=== PATIENT | female | born 1970 | race Caucasian/White ===

== ENCOUNTER 2024-03-23 15:41 | Inpatient (IN) | payer MEDICARE, OTHER, SELFPAY ==
[2024-03-23] VITALS (46 sets, daily range): BP systolic 85–152; BP diastolic 58–106; PULSE 90–131; RESP 17–51; TEMP 36.6–39.9; O2SAT 93–100; BMI 34.7
--- NOTE | ~2024-03-23 | CT_ITS ---
CTA chest PE protocol Ordering provider: Anneliese Monte MD History: 54 years Female with . respiratory failure . Comparison: None. Technique: CT angiogram chest was performed following timed intravenous injection of contrast. Thin s lice axial images and reformatted coronal images were obtained. Three dimensional reformatted images of the chest were also obtained using a [employer] workstation. . Automated exposure control and iterati ve reconstruction technique were employed. The dose-length product was 941.49 mGy-cm. 100 mL Omnipaque 350 was given IV. Findings: PULMONARY ARTERIES: No pulmonary embolus. VISUALIZED THORACIC INLET: Normal. Endotracheal and nasogastric tubes are noted. MEDIASTINUM: Aorta/coronary arteries: The thoracic aorta is normal. Heart/other: The heart is not enlarged. Lymph nodes: Paratracheal and prevascular lymph nodes are noted. The largest measures 1.6 cm. LUNGS: Pneumonia in the left lower lobe. Pneumonia in the left upper lobe laterally. Pneumonia in the right lower lobe medially. Nodule in the right upper lobe measuring 6 mm. 6 months follow-up CT is advised. No pulmonary masses. No effusions. No pneumothorax. VISUALIZED UPPER ABDOMEN: Status post cholecystectomy. Postoperative changes in the stomach. Otherwis e, the visualized upper abdomen is normal. MUSCULOSKELETAL: Soft tissues: The superficial soft tissues are normal. Bones: Normal spine. IMPRESSION: 1. Pneumonia in multiple areas with the largest in the left lower lobe. 2. No pulmonary embolism. 3. Nodule in the right upper lobe. 6 months follow-up CT is advised. Reviewed, dictated and finalized at location A. TIES TRADER
--- NOTE | ~2024-03-23 | XR_ITS ---
Portable chest x-ray Comparison: 03/23/2024 Clinical History: Intubation Findings: Endotracheal tube and NG tube are in satisfactory positions. Moderate left pleural effusio n present with probable left mid lung atelectasis and left lower lobe atelectasis. Right lung essenti ally clear. Cardiomediastinal silhouette is stable. Bones and soft tissues are unremarkable. Impression: Moderate left pleural effusion with probable left lower lobe and partial left midlung atelectatic alex nge. Correlate for underlying pneumonia. Support tubes, as above. Reviewed, dictated and finalized at location M. ION INSTALLER Impression: Moderate left pleural effusion with probable left lower lobe and partial left m idlung atelectatic change. Correlate for underlying pneumonia. Support tubes, as above.
--- NOTE | ~2024-03-23 | XR_ITS ---
XR chest ET placement Ordering provider: Anneliese Monte MD History: 54 years Female with . ET TUBE . Comparison: None. FINDINGS: MEDIASTINUM: The cardiac silhouette is not enlarged. Endotracheal tube is seen at the maricarmen and need s to be retracted by 2 to 3 cm. Nasogastric tube is seen extending to the stomach. Congestive carmina. LUNGS: No pneumothorax. Opacification in the left mid and lower zone is seen suggestive of pneumonia versus atelectasis. Poss ibility of left pleural effusion is not excluded. OTHER: No free air under the diaphragm. IMPRESSION: Opacification in the left mid and lower zone suggestive of pneumonia. Follow-up advised. Possibility of left pleural effusion is not excluded. Reviewed, dictated and finalized at location A. TTER SETTER UP
--- NOTE | ~2024-03-23 | XR_ITS ---
EXAMINATION: XR abdomen gastric tube insert DATE: 03/23/2024 17:25 INDICATION: Nasogastric tube placement. TECHNIQUE: A supine view of the abdomen was obtained. COMPARISON: None. FINDINGS: The lower abdomen is excluded. The nasogastric tube tip is in the stomach. Surgical clips i n the right upper quadrant are likely from cholecystectomy. IMPRESSION: 1. Nasogastric tube tip in the stomach. Reviewed, dictated and finalized at location A. NT PARTNER
--- NOTE | ~2024-03-23 | XR_ITS ---
Portable chest x-ray Comparison: 03/24/2024 Clinical History: Respiratory failure Findings: Endotracheal tube and NG tube are in satisfactory positions. Small left pleural effusion p resent with probable left lower lobe atelectasis. Correlate clinically for pneumonia. Minimal central congestive changes are present. Cardiomediastinal silhouette is stable. Bones and soft tissues are unremarkable. Impression: Small left pleural effusion with probable left lower lobe/left basilar atelectasis. Correlate clinica lly for pneumonia. Minimal central congestive change. Support tubes, as above. Reviewed, dictated and finalized at location . E BUSINESS MANAGER Impression: Small left pleural effusion with probable left lower lobe/left basilar atelecta sis. Correlate clinically for pneumonia. Minimal central congestive change. Support tubes, as above.
--- NOTE | ~2024-03-23 | XR_ITS ---
XR chest 2V Ordering provider: Dandy Mayers History: 54 years Female with . PNA . Comparison: March 26, 2024 FINDINGS: MEDIASTINUM: The cardiac silhouette is slightly enlarged. Congestive carmina. Of the endotracheal tube and nasogastric tube is noted. LUNGS: No pneumothorax. Opacification in the left lower lobe is seen suggestive of atelectasis versus pneumonia with pleural effusion. Bilateral interstitial changes is noted OTHER: No free air under the diaphragm. IMPRESSION: Left lower lobe atelectasis versus pneumonia with pleural effusion. Bilateral Interstitial thickening which may indicate underlying pulmonary edema versus pneumonitis. Reviewed, dictated and finalized at location A. RAL INTERN IMPRESSION: Left lower lobe atelectasis versus pneumonia with pleural effusion. Bilateral I nterstitial thickening which may indicate underlying pulmonary edema versus pne umonitis.
[2024-03-23] MEDS: ALBUTEROL SULFATE NEB 2.5 MG/3 ML INH 10 MG INHALATION (15:48)
[2024-03-23] MEDS: IPRATROPIUM BR 0.02% INH SOLN 0.5 MG/2.5 ML VIAL 1 MG INHALATION (15:48)
--- NOTE | 2024-03-23 15:50 | ECG_ITS ---
Test Date: 2024-03-23 16:04:41 Measurements Intervals [place] Rate: 125 P: 53 NV: 133 QRS: -42 QRSD: 91 T: 21 QT: 416 QTc: 601 Interpretive Statements SINUS TACHYCARDIA MARKED LEFT AXIS DEVIATION [QRS AXIS < -30] LOW QRS VOLTAGE IN PRECORDIAL LEADS [QRS DEFLECTION < 1.0 mV IN CHEST LEADS] BASELINE ARTIFACT LIMITS INTERPRETATION No previous ECG available for comparison Electronically Signed On 03-24-2024 15:03:20 INTERVENTIONAL PAIN PHYSICIAN by Saqib Schaefer M.D.
[2024-03-23 16:01] LABS: Alveolar/Arterial O2 Gradient 175.5 mmHg; Base Excess ABG -5.8 mEq/l (+/-2.0); Fractional Inspired Oxygen 40 %; Methemoglobin ABG 0.3 %THb (0-1.5); Oxygen Content ABG 19.8 %vol (16.0-22.0); Oxyhemoglobin 95.2 % THb (90.0-100.0); PO2 ABG 78.7 mmHg (80.0-100.0); PO2 FiO2 Ratio Arterial Blood 1.97 %; Reduced Hemoglobin 3.5 %THb (0-5.0); Total Hemoglobin 14.8 g/dL (12.0-18.0); pH ABG 7.417 (7.350-7.450)
[2024-03-23 16:02] LABS: Device NON-INVASIVE VENT; Modified Allen's Test Pass; Site Drawn LEFT RADIAL
[2024-03-23 16:03] LABS: Non-Invasive Expiratory Pressure 6 CMH2O; Non-Invasive Inspiratory Pressure 12 CMH2O; Non-Invasive Vent Rate 16 /MIN
--- NOTE | 2024-03-23 16:36 | ED.SOB ---
HPI - SOB/Dyspnea General Chief Complaint: Shortness of Breath/Dyspnea Stated Complaint: sob Time Seen by Provider: 03/23/24 16:31 History of Present Illness HPI Narrative: 54-year-old female presenting with respiratory distress. Her stepson is at bedside and helps with the history. She is here visiting from [place]. States that the whole family has been having viral respiratory symptoms for the last week. Since last night she has been complaining of shortness of breath. He did hear her wheezing so he took her to urgent care who called EMS to bring her here. On my evaluation she is on BiPAP, remains tachypneic. Further history limited secondary to acuity of condition. Related Data Home Medications Medication Instructions Recorded Confirmed amitriptyline 10 mg tablet 10 mg PO DAILY 03/24/24 03/24/24 atogepant 60 mg tablet (Qulipta) 60 mg PO DAILY 03/24/24 03/24/24 buprenorphine 4 mg-naloxone 1 mg 1 film sublingual BID 03/24/24 03/24/24 sublingual film buspirone 30 mg tablet 30 mg PO BID 03/24/24 03/24/24 clindamycin phosphate 1 % lotion 1 applic topical PRN PRN leg sores 03/24/24 03/24/24 cyclobenzaprine 10 mg tablet 10 mg PO BID 03/24/24 03/24/24 desvenlafaxine succinate 100 mg 100 mg PO DAILY 03/24/24 03/24/24 tablet,extended release 24 hr diazepam 5 mg tablet (Valium) 5 mg PO BID PRN Anxiety 03/24/24 03/24/24 diclofenac sodium 1 % topical gel 1 ea topical PRN PRN bursitis 03/24/24 03/24/24 dicyclomine 20 mg tablet 20 mg PO PRN irritable bowel 03/24/24 03/24/24 furosemide 20 mg tablet 20 mg PO BID foot swelling 03/24/24 03/24/24 galcanezumab-gnlm 120 mg/mL 300 mg subcut MONTHLY 03/24/24 03/24/24 subcutaneous syringe (Emgality) golimumab 100 mg/mL subcutaneous 100 mg subcut MONTHLY 03/24/24 03/24/24 syringe (Simponi) ketamine 50 mg/mL injection 1 mg intranasal BID 03/24/24 03/24/24 solution krill oil 1,250 mg PO DAILY 03/24/24 03/24/24 meloxicam 7.5 mg tablet 7.5 mg PO BID 03/24/24 03/24/24 montelukast 10 mg tablet 10 mg PO DAILY 03/24/24 03/24/24 multivitamin g-yqfcuhhn-gsfsloq 1 tablet PO DAILY 03/24/24 03/24/24 fumarate 18 mg-vitamin K 25 mcg tablet omeprazole 40 mg PO DAILY PRN Acid Reflux 03/24/24 03/24/24 ondansetron HCl 4 mg tablet 4 mg PO Q6H PRN Nausea And Vomiting 03/24/24 03/24/24 prednisone 5 mg tablet 5 mg PO DAILY PRN rheumatoid 03/24/24 03/24/24 arthritis pregabalin 75 mg capsule 75 mg PO BID 03/24/24 03/24/24 promethazine 25 mg tablet 25 mg PO DAILY nausea 03/24/24 03/24/24 riboflavin (vitamin B2) 400 mg 400 mg PO BID 03/24/24 03/24/24 tablet rizatriptan 10 mg tablet 10 mg DAILY PRN Migraine Headache 03/24/24 03/24/24 semaglutide (weight loss) 1.7 1.7 mg subcut WEEKLY 03/24/24 03/24/24 mg/0.75 mL subcutaneous pen injector (Wegovy) sour [place] extract 1,000 mg 3,000 mg PO DAILY 03/24/24 03/24/24 capsule ([place] Extract) zolmitriptan 5 mg tablet 5 mg DAILY PRN Migraine Headache 03/24/24 03/24/24 Allergies Allergy/AdvReac Type Severity Reaction Status Date / Time No Known Allergies Allergy Verified 03/23/24 16:00 Review of Systems Review of Systems: All systems reviewed & are unremarkable except as noted in HPI and below PMFSH Past Medical History Medical History Depression Fibromyalgia Migraine Obesity Rheumatoid arthritis Social History Social History Smoking status: Never smoker Alcohol intake: never Substance use: never Substance use type: does not use Spiritual care concerns: No Exam Narrative: GENERAL: Ill-appearing, altered, responsive to verbal stimuli though not appropriate HEAD: Normocephalic, atraumatic. EYES: PERRLA and EOMI. ENT: Grossly unremarkable NECK: Supple. CHEST: Tachypneic on BiPAP, very coarse breath sounds bilaterally HEART: Tachycardic, regular rhythm ABDOMEN: Soft, nontender, nondistended EXTREMITIES: Normal range of motion. SKIN: Warm, dry, no rash. NEURO: Altered, responsive verbal stimuli, moving all extremities spontaneously PSYCH: Unable to assess Course Vital Signs Vital signs: Vital Signs Temperature 97.9 F 03/23/24 15:44 Pulse Rate 120 H 03/23/24 15:44 Respiratory Rate 43 H 03/23/24 15:44 Blood Pressure 94/66 L 03/23/24 15:44 Pulse Oximetry 98 03/23/24 15:44 Oxygen Delivery BiPAP 03/23/24 15:44 Temperature 100.1 F H 03/24/24 20:00 Pulse Rate 88 03/24/24 21:17 Respiratory Rate 22 H 03/24/24 20:00 Blood Pressure 115/81 03/24/24 20:00 Pulse Oximetry 97 03/24/24 21:17 Oxygen Delivery Mechanical Ventilation 03/24/24 21:17 Oxygen Flow Rate 20 03/24/24 04:00 Fraction of Inspired Oxygen 30 03/24/24 21:17 Procedures Central Line Placement Right Femoral: Central Line Date: 03/23/24 Central Line Time: 22:03 Patient Placed on Monitor/Pulse Ox: Yes Max. Sterile Barrier Technique: Caps, large sterile sheet and hand hygiene Central Line Prep: 2% chlorhexidine scrub and sterile drapes applied Technique: US-Guided Ultrasound Used for Placement: Yes Central Line Lumen Inserted: triple Post Procedure: sutured in place, good blood return, all ports aspirated, flushed, capped and sterile dressing applied Patient Tolerated Procedure: well and no complications Complications: none Intubation Intubation #1: Intubation Date: 03/23/24 Intubation Time: 17:16 sedative: Etomidate Mg Given: 20 paralytic: Rocuronium Mg Given: 100 Tube Size (cm): 7.5 Method of Intubation: orotracheal Number of Attempts: 1 Tube Secured Depth (cm): 21 Tube Secured Location: lips Tube Placement Confirmation: visualized tube passing through cords, equal breath sounds bilaterally, no breath sounds over epigastrium and confirmation by capnometry Patient Tolerated Procedure: well and no complications Intubation Complications: none MDM - SOB/Dyspnea MDM Narrative Medical decision making narrative: 54-year-old female presenting with respiratory distress. Patient tachypneic in the 40s to 50s despite being on BiPAP for an close to an hour. She has received several hour long breathing treatments. Decision made to intubate the for respiratory failure. Please see procedure note below for further detail. Tolerated without complication. Sepsis protocol has been ordered with 30 cc/kilos bolus and broad-spectrum antibiotics. Spoke with the ICU who agrees with admission. Spoke with the hospitalist was accepted her for admission. CTA shows multi lobar pneumonia. Pt's blood prressures downtrending following PRN versed for sedation. Central line was placed, levo started and Versed drip added. Central line placed without complication, please see procedure note below for further detail. Pressors have been ordered. Differential Diagnosis Differential diagnosis: Likely congestive heart failure, community acquired pneumonia and other (Sepsis, respiratory failure) Medical Records Attestation: I reviewed the patient's medical records. Lab Data Attestation: I reviewed the patient's lab results. 03/24/24 04:16 03/24/24 04:16 Labs: Lab Results 03/23/24 03/23/24 03/23/24 Range/Units 15:56 16:35 16:38 WBC 15.2 H (4.5-10.0) K/mm3 RBC 4.60 (4.2-5.4) M/mm3 Hgb 14.7 (12.0-15.0) g/dL Hct 43.4 (37.0-47.0) % MCV 94.3 (80-100) fl MCH 32.0 (26-34) pg MCHC 33.9 (32-36) g/dl RDW 12.3 (11.5-14.5) % Plt Count 216 (150-375) k/mm3 MPV 10.7 H (7.4-10.4) fl Immature Gran % (Auto) 0.5 (0-0.5) % Neut % (Auto) 84.9 H (45.5-73.1) % Lymph % (Auto) 11.2 L (18.3-44.2) % [place] % (Auto) 1.8 L (2.6-8.5) % Eos % (Auto) 0.7 (0-4.4) % Baso % (Auto) 0.9 (0.2-1.2) % Lymph # (Auto) 1.69 (0.9-3.2) K/mm3 [place] # (Auto) 0.3 (0.1-0.6) K/mm3 Eos # (Auto) 0.1 (0-0.3) K/mm3 Baso # (Auto) 0.1 (0.0-0.1) K/mm3 Abs Immat Gran (auto) 0.07 H (0.00-0.031) K/mm3 Absolute Neuts (auto) 12.9 H (1.3-6.7) K/mm3 Absolute Nucleated RBC 0.000 (0.0-0.012) K/mm3 Nucleated RBC % 0.0 (0.0-0.2) % Methemoglobin 0.3 (0-1.5) %THb Minute Volume Vent Mode Expiratory Pressure 6 CMH2O Tidal Volume ml PEEP cmH2O Inspiratory Pressure 12 CMH2O Peak Inspir Pressure Pressure Support Sodium 134 L (137-145) mmol/L Potassium 3.5 (3.4-5.0) mmol/L Chloride 103 (98-107) mmol/L Carbon Dioxide 21 L (22-30) mmol/L Anion Gap 10 (4-12) mmol/L BUN 24 H (7-17) mg/dL Creatinine 0.80 (0.7-1.0) mg/dL Estim Creat Clear Calc 81 ml/min Estimated GFR > 60 (59 - ) Glucose 132 H (65-110) mg/dL Lactic Acid 1.6 (0.7-2.0) mmol/L Calcium 9.1 (8.4-10.2) mg/dL Total Bilirubin 1.6 H (0.2-1.3) mg/dL AST 59 H (14-36) U/L ALT 34 (6-35) U/L Alkaline Phosphatase 74 (38-126) U/L Troponin I 0.014 (0.000-0.034) ng/mL NT-Pro-B Natriuret Pep 1330 H (19.9-100) pg/mL Total Protein 8.0 (6.3-8.2) g/dL Albumin 4.0 (3.5-5.1) g/dL Procalcitonin 7.3 ng/mL Urine Color (Yellow) Urine Appearance (Clear) Urine pH (5.0-9.0) Ur Specific [place] (1.001-1.035) Urine Protein (Negative) mg/dL Urine Glucose (UA) (Negative) mg/dL Urine Ketones (Negative) mg/dL Ur Blood (Man) (Negative) Urine Nitrate (Negative) Urine Bilirubin (Negative) Urine Urobilinogen (<2.0) mg/dL Leukocyte Esterase Rfl (Negative) BRADY/UL Urine RBC (0-2) /hpf Urine WBC (0-3) /hpf Ur Squamous Epith Cells (Few) /hpf Urine Bacteria /hpf Urine Casts Hyaline Casts (None) /lpf Influenza A (RT-PCR) (Negative) Influenza B (RT-PCR) (Negative) Ur L.pneumophila Ag SARS-CoV-2 RNA (RT-PCR) (Negative) Urine Pneumococcal Ag 03/23/24 03/23/24 03/23/24 Range/Units 16:46 17:54 17:55 WBC (4.5-10.0) K/mm3 RBC (4.2-5.4) M/mm3 Hgb (12.0-15.0) g/dL Hct (37.0-47.0) % MCV (80-100) fl MCH (26-34) pg MCHC (32-36) g/dl RDW (11.5-14.5) % Plt Count (150-375) k/mm3 MPV (7.4-10.4) fl Immature Gran % (Auto) (0-0.5) % Neut % (Auto) (45.5-73.1) % Lymph % (Auto) (18.3-44.2) % [place] % (Auto) (2.6-8.5) % Eos % (Auto) (0-4.4) % Baso % (Auto) (0.2-1.2) % Lymph # (Auto) (0.9-3.2) K/mm3 [place] # (Auto) (0.1-0.6) K/mm3 Eos # (Auto) (0-0.3) K/mm3 Baso # (Auto) (0.0-0.1) K/mm3 Abs Immat Gran (auto) (0.00-0.031) K/mm3 Absolute Neuts (auto) (1.3-6.7) K/mm3 Absolute Nucleated RBC (0.0-0.012) K/mm3 Nucleated RBC % (0.0-0.2) % Methemoglobin (0-1.5) %THb Minute Volume Vent Mode Expiratory Pressure CMH2O Tidal Volume ml PEEP cmH2O Inspiratory Pressure CMH2O Peak Inspir Pressure Pressure Support Sodium (137-145) mmol/L Potassium (3.4-5.0) mmol/L Chloride (98-107) mmol/L Carbon Dioxide (22-30) mmol/L Anion Gap (4-12) mmol/L BUN (7-17) mg/dL Creatinine (0.7-1.0) mg/dL Estim Creat Clear Calc ml/min Estimated GFR (59 - ) Glucose (65-110) mg/dL Lactic Acid (0.7-2.0) mmol/L Calcium (8.4-10.2) mg/dL Total Bilirubin (0.2-1.3) mg/dL AST (14-36) U/L ALT (6-35) U/L Alkaline Phosphatase (38-126) U/L Troponin I (0.000-0.034) ng/mL NT-Pro-B Natriuret Pep (19.9-100) pg/mL Total Protein (6.3-8.2) g/dL Albumin (3.5-5.1) g/dL Procalcitonin ng/mL Urine Color Dark yellow (Yellow) Urine Appearance Cloudy H (Clear) Urine pH 6.0 (5.0-9.0) Ur Specific [place] 1.024 (1.001-1.035) Urine Protein 3+ H (Negative) mg/dL Urine Glucose (UA) Negative (Negative) mg/dL Urine Ketones 2+ H (Negative) mg/dL Ur Blood (Man) Trace (Negative) Urine Nitrate Negative (Negative) Urine Bilirubin 1+ H (Negative) Urine Urobilinogen 1.0 (<2.0) mg/dL Leukocyte Esterase Rfl Trace H (Negative) BRADY/UL Urine RBC 3-5 H (0-2) /hpf Urine WBC 0-5 (0-3) /hpf Ur Squamous Epith Cells Occasional (Few) /hpf Urine Bacteria None seen /hpf Urine Casts 11-20 Hyaline Casts Present (None) /lpf Influenza A (RT-PCR) Negative (Negative) Influenza B (RT-PCR) Negative (Negative) Ur L.pneumophila Ag Pending SARS-CoV-2 RNA (RT-PCR) Negative (Negative) Urine Pneumococcal Ag Pending 03/23/24 03/23/24 Range/Units 17:58 19:55 WBC (4.5-10.0) K/mm3 RBC (4.2-5.4) M/mm3 Hgb (12.0-15.0) g/dL Hct (37.0-47.0) % MCV (80-100) fl MCH (26-34) pg MCHC (32-36) g/dl RDW (11.5-14.5) % Plt Count (150-375) k/mm3 MPV (7.4-10.4) fl Immature Gran % (Auto) (0-0.5) % Neut % (Auto) (45.5-73.1) % Lymph % (Auto) (18.3-44.2) % [place] % (Auto) (2.6-8.5) % Eos % (Auto) (0-4.4) % Baso % (Auto) (0.2-1.2) % Lymph # (Auto) (0.9-3.2) K/mm3 [place] # (Auto) (0.1-0.6) K/mm3 Eos # (Auto) (0-0.3) K/mm3 Baso # (Auto) (0.0-0.1) K/mm3 Abs Immat Gran (auto) (0.00-0.031) K/mm3 Absolute Neuts (auto) (1.3-6.7) K/mm3 Absolute Nucleated RBC (0.0-0.012) K/mm3 Nucleated RBC % (0.0-0.2) % Methemoglobin (0-1.5) %THb Minute Volume Not Reportable Vent Mode Cmv Expiratory Pressure CMH2O Tidal Volume 350 ml PEEP 5 cmH2O Inspiratory Pressure CMH2O Peak Inspir Pressure Not Reportable Pressure Support Not Reportable Sodium (137-145) mmol/L Potassium (3.4-5.0) mmol/L Chloride (98-107) mmol/L Carbon Dioxide (22-30) mmol/L Anion Gap (4-12) mmol/L BUN (7-17) mg/dL Creatinine (0.7-1.0) mg/dL Estim Creat Clear Calc ml/min Estimated GFR (59 - ) Glucose (65-110) mg/dL Lactic Acid (0.7-2.0) mmol/L Calcium (8.4-10.2) mg/dL Total Bilirubin (0.2-1.3) mg/dL AST (14-36) U/L ALT (6-35) U/L Alkaline Phosphatase (38-126) U/L Troponin I 0.015 (0.000-0.034) ng/mL NT-Pro-B Natriuret Pep (19.9-100) pg/mL Total Protein (6.3-8.2) g/dL Albumin (3.5-5.1) g/dL Procalcitonin ng/mL Urine Color (Yellow) Urine Appearance (Clear) Urine pH (5.0-9.0) Ur Specific [place] (1.001-1.035) Urine Protein (Negative) mg/dL Urine Glucose (UA) (Negative) mg/dL Urine Ketones (Negative) mg/dL Ur Blood (Man) (Negative) Urine Nitrate (Negative) Urine Bilirubin (Negative) Urine Urobilinogen (<2.0) mg/dL Leukocyte Esterase Rfl (Negative) BRADY/UL Urine RBC (0-2) /hpf Urine WBC (0-3) /hpf Ur Squamous Epith Cells (Few) /hpf Urine Bacteria /hpf Urine Casts Hyaline Casts (None) /lpf Influenza A (RT-PCR) (Negative) Influenza B (RT-PCR) (Negative) Ur L.pneumophila Ag SARS-CoV-2 RNA (RT-PCR) (Negative) Urine Pneumococcal Ag ABG Data ABG results: 03/23/24 03/23/24 15:56 17:58 Puncture Site Left radial Left brachial ABG pH 7.417 7.255 L* ABG pCO2 27.0 L 40.0 ABG pO2 78.7 L 84.6 ABG PO2/FiO2 Ratio 1.97 1.41 ABG HCO3 17.0 L 17.3 L ABG O2 Saturation 96.0 94.9 L ABG O2 Content 19.8 18.0 ABG Base Excess -5.8 -9.2 A-a Gradient 175.5 299.2 Oxyhemoglobin 95.2 94.6 Carboxyhemoglobin 1.0 Reduced Hemoglobin 3.5 Total Hemoglobin 14.8 13.5 O2 Delivery Device Non-invasive vent Ventilator O2 Liters/Min Not Reportable Not Reportable Vent Rate 16 20 FiO2 40 60 Imaging Data Radiologist's impression: ITS Impressions Abdomen X-Ray 03/23/24 17:28 IMPRESSION: 1. Nasogastric tube tip in the stomach. Chest X-Ray 03/23/24 17:32 IMPRESSION: Opacification in the left mid and lower zone suggestive of pneumonia. Follow-up advised. Possibility of left pleural effusion is not excluded. Chest CTA 03/23/24 19:45 IMPRESSION: 1. Pneumonia in multiple areas with the largest in the left lower lobe. 2. No pulmonary embolism. 3. Nodule in the right upper lobe. 6 months follow-up CT is advised. Critical Care Time Critical Care Time Critical Care Time: Yes Total Critical Care Time: 120 Discharge Plan Discharge Clinical Impression: Septic shock, Pneumonia, Respiratory failure requiring intubation Patient Disposition: Still a Patient Condition: Critical
[2024-03-23] MEDS: LORazepam INJ (*CRX) 2 MG/ML VIAL (16:40)
[2024-03-23] MEDS: LORazepam INJ (*CRX) 2 MG/ML VIAL 1 MG IV PUSH (16:41)
[2024-03-23] MEDS: IPRATROPIUM BR 0.02% INH SOLN 0.5 MG/2.5 ML VIAL INHALATION (16:45)
[2024-03-23] MEDS: LEVALBUTEROL NEB 1.25 MG/3 ML 10 MG INHALATION (16:45)
[2024-03-23 16:47] LABS: Basophils Absolute Auto 0.1 K/mm3 (0.0-0.1); Basophils Percent Auto 0.9 % (0.2-1.2); Eosinophils Absolute Auto 0.1 K/mm3 (0-0.3); Eosinophils Percent Auto 0.7 % (0-4.4); Hematocrit 43.4 % (37.0-47.0); Hemoglobin 14.7 g/dL (12.0-15.0); Immature Granulocyte Absolute 0.07 K/mm3 (0.00-0.031); Immature Granulocyte Percent A 0.5 % (0-0.5); Lymphocytes Absolute Auto 1.69 K/mm3 (0.9-3.2); Lymphocytes Percent Auto 11.2 % (18.3-44.2); Mean Corpuscular HGB Conc 33.9 g/dl (32-36); Mean Corpuscular Volume 94.3 fl (80-100); Mean Platelet Volume 10.7 fl (7.4-10.4); Monocytes Absolute Auto 0.3 K/mm3 (0.1-0.6); Monocytes Percent Auto 1.8 % (2.6-8.5); Neutrophils Absolute Auto 12.9 K/mm3 (1.3-6.7); Neutrophils Percent Auto 84.9 % (45.5-73.1); Platelet Count Result 216 k/mm3 (150-375); Red Cell Distribution Width 12.3 % (11.5-14.5); White Blood Count 15.2 K/mm3 (4.5-10.0)
[2024-03-23 17:09] LABS: Lactic Acid Reflex 1.6 mmol/L (0.7-2.0)
[2024-03-23 17:11] LABS: Alanine Aminotransferase 34 U/L (6-35); Alkaline Phosphatase 74 U/L (38-126); Anion Gap 10 mmol/L (4-12); Aspartate Amino Transferase 59 U/L (14-36); Bilirubin,Total 1.6 mg/dL (0.2-1.3); Blood Urea Nitrogen 24 mg/dL (7-17); Calcium 9.1 mg/dL (8.4-10.2); Carbon Dioxide 21 mmol/L (22-30); Chloride 103 mmol/L (98-107); Estimated CRCL calculation 81 ml/min; Estimated Glomerular Filt Rate > 60; Glucose 132 mg/dL (65-110); Potassium 3.5 mmol/L (3.4-5.0); Sodium 134 mmol/L (137-145)
--- NOTE | 2024-03-23 17:13 | PC.NURSE ---
1709: Etomidate 20mg & Rocuronium 100mg IVP administered for intubation, Dr. Monte intubated with 7.5 ET tube taped 22 at lip. Large amount of bloody drainage suctioned. Breath sounds auscultated in x4 breath sounds & epigastric. C02 detector positive. OG inserted with positive confirnment auscultated & per XRay
[2024-03-23 17:21] LABS: NT Pro B Type Natriuretic Pept 1330 pg/mL (19.9-100); Troponin I 0.014 ng/mL (0.000-0.034)
[2024-03-23] MEDS: FENTANYL 2,500MCG/NS250ML(*CRX 2,500 MCG/250 ML BAG 25 MCG (17:26)
[2024-03-23] MEDS: SODIUM CHLORIDE 0.9% IV 1,000 ML 999 ML IV CONT ×4 (17:30→23:41)
[2024-03-23] MEDS: PIPERACILLIN/TAZ 4.5G/NS 100ML 4.5 GM/100 ML BAG IVPB (17:40)
[2024-03-23] MEDS: methylPREDNISolone SOD SUCC 125 MG VIAL IV PUSH (17:47)
[2024-03-23 18:08] LABS: Alveolar/Arterial O2 Gradient 299.2 mmHg; Base Excess ABG -9.2 mEq/l (+/-2.0); Fractional Inspired Oxygen 60 %; HCO3 ABG 17.3 mEq/l (22.0-26.0); Oxygen Saturation ABG 94.9 % (95.0-100.0); Oxyhemoglobin 94.6 % THb (90.0-100.0); PO2 ABG 84.6 mmHg (80.0-100.0); PO2 FiO2 Ratio Arterial Blood 1.41 %; Total Hemoglobin 13.5 g/dL (12.0-18.0)
[2024-03-23 18:12] LABS: Arterial Blood Gas PEEP 5 cmH2O; Arterial Blood Gas Vent Mode CMV; Arterial Blood Gas Ventilator rate 20 /MIN; Device VENTILATOR; Modified Allen's Test Pass; Site Drawn LEFT BRACHIAL; pH ABG 7.255 (7.350-7.450)
[2024-03-23 18:13] LABS: Arterial Blood Gas Tidal Volume 350 ml
[2024-03-23] MEDS: VANCOMYCIN 1,250 MG/NS 250 ML 1,250 MG/250 ML BAG 166.67 MG IVPB (18:15)
[2024-03-23] MEDS: ACETAMINOPHEN 650 MG SUPPOSITORY (18:22)
--- NOTE | 2024-03-23 18:25 | PC.NURSE ---
Pt vent settings unchanged. Tolerating Fentanyl drip. Mcbride patent. Bilateral upper extremities remain in soft restraints. Breath sounds remain coarse
[2024-03-23 18:42] LABS: Add Urine Microscopic? YES; Appearance Urine Cloudy (Clear); Bacteria Urine None Seen /hpf; Bilirubin Urine 1+ (Negative); Blood Urine Trace (Negative); Color Urine Dark Yellow (Yellow); Glucose Urine UA Negative (Negative); Hyaline Casts Urine Present /lpf; Ketones Urine 2+ mg/dL (Negative); Leukocyte Esterase Ur Trace LEU/UL (Negative); Nitrate Urine Negative (Negative); Protein Urine 3+ mg/dL (Negative); Specific Grav Ur 1.024 (1.001-1.035); Squamous Epithelial Cell Urine Occasional /hpf (Few); WBC Urine 0-5 /hpf (0-3)
[2024-03-23] MEDS: MIDAZOLAM HCL (*CRX) 2 MG/2 ML VIAL IV PUSH ×2 (18:42→19:47)
[2024-03-23] MEDS: FENTANYL 2,500MCG/NS250ML(*CRX 2,500 MCG/250 ML BAG IV CONT (19:28)
--- NOTE | 2024-03-23 19:28 | PC.NURSE ---
[address] with Resp therapist & RN.
--- NOTE | 2024-03-23 19:29 | PC.NURSE ---
Pt assessment unchanged. Remains bilateral upper extremities soft restraints. Vent settings unchanged as per Resp Therapy. Mcbride draining cloudy jami urine. Family updated
[2024-03-23] MEDS: SODIUM CHLORIDE 0.9% IV 900 ML 999 ML IV CONT (19:44)
--- NOTE | 2024-03-23 19:58 | PC.NURSE ---
pt breathing faster than ventilated, RT concerned for low seddation. Fentanyl up to 100mcg at this time and 2mg versed given per JUN. MD Monte aware.
--- NOTE | 2024-03-23 19:59 | ECG_ITS ---
Test Date: 2024-03-23 20:04:22 Measurements Intervals [place] Rate: 108 P: 44 MO: 141 QRS: -18 QRSD: 100 T: 12 QT: 297 QTc: 399 Interpretive Statements SINUS TACHYCARDIA LOW QRS VOLTAGE [QRS DEFLECTION < 0.5/1.0 mV IN LIMB/CHEST LEADS] INCOMPLETE RIGHT BUNDLE BRANCH BLOCK [90+ ms QRS DURATION, TERMINAL R IN V1/V2, 40+ ms S IN I/aVL/V4/V5/V6] MODERATE ST DEPRESSION [0.05+ mV ST DEPRESSION] Compared to ECG 03/23/2024 16:04:41 NO SIGNIFICANT CHANGES Electronically Signed On 03-24-2024 15:08:15 VENEER SAMPLE [employer]KER by Saqib Schaefer M.D.
[2024-03-23] MEDS: VANCOMYCIN 1,000 MG/NS 250 ML 1,000 MG/250 ML BAG 250 MG IVPB (20:08)
[2024-03-23] MEDS: KETAMINE HCL (*CRX) 500 MG/10 ML VIAL 100 MG IV PUSH (20:31)
[2024-03-23] MEDS: KETOROLAC 15 MG/ML VIAL (*BKC) IV PUSH (20:55)
--- NOTE | 2024-03-23 20:58 | PC.NURSE ---
MD Monte aware that patient hypotensive 84/58 MAP 67 with multiple pressures like this. states ketamine drip is on the way from pharmacy for better sedation and better BP control.
[2024-03-23 21:11] LABS: Troponin I 0.015 ng/mL (0.000-0.034)
[2024-03-23 21:18] LABS: Procalcitonin 7.3 ng/mL
--- NOTE | 2024-03-23 21:25 | PC.NURSE ---
prepping for central line access at this time due to continued hypotension. MD Monte at bedside.
--- NOTE | 2024-03-23 21:50 | P.HP_ITS ---
H&P: HPI History of Present Illness Date/Time: 03/23/24 21:50 Chief Complaint: 1. Shortness of breath Narrative: Gini Gleason is a 54 yo F with a mHx significant for obesity, migraines, depression, fibromyalgia, RA Visiting from [place], she while residing with her step-son developed a productive cough over the last week; it came to be associated with fatigue, shortness of breath on exertion, malaise, increased somnolence and poor execution of her ADLs. When her stept-son returned from work this AM, he noticed that she was lethargic, poorly communicative and deeply somnolent. The decision was made to pursue an evaluation at an urgent care center and after preliminary evaluations was advised to pursue more evaluations at the [facility]. on arrival she was significantly hypoxic and rapidly intubated to help with proper oxygenation. 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 Work-up findings: WBC 11 Hb 12 PLT 181 AB.29, 32,88, 15 Na 140 K 3.3 Cl 116 [id number] BUN 19 Cr 0.6 AST 47 ALT 29 ALP 62 CXR: Moderate left pleural effusion with probable left lower lobe and partial left midlung atelectatic change. Correlate for underlying pneumonia CT chest: 1. Pneumonia in multiple areas with the largest in the left lower lobe. 2. No pulmonary embolism. 3. Nodule in the right upper lobe. 6 months follow-up CT is advised. She will be admitted, evaluated and managed for CAP with background immunosuppressants, hypoxia Review of Systems Review of Systems: ROS unobtainable: Yes unobtainable due to endotracheal tube and unobtainable due to medical condition [facility] Social History Social History Smoking status: Never smoker Alcohol intake: never Substance use: never Substance use type: does not use Spiritual care concerns: No Meds Home Medications and Allergies Home Medications Medication Instructions Recorded Confirmed Type amitriptyline 10 mg tablet 10 mg PO DAILY 03/24/24 03/24/24 History atogepant 60 mg tablet (Qulipta) 60 mg PO DAILY 03/24/24 03/24/24 History buprenorphine 4 mg-naloxone 1 mg 1 film sublingual BID 03/24/24 03/24/24 History sublingual film buspirone 30 mg tablet 30 mg PO BID 03/24/24 03/24/24 History clindamycin phosphate 1 % lotion 1 applic topical PRN PRN leg sores 03/24/24 03/24/24 History cyclobenzaprine 10 mg tablet 10 mg PO BID 03/24/24 03/24/24 History desvenlafaxine succinate 100 mg 100 mg PO DAILY 03/24/24 03/24/24 History tablet,extended release 24 hr diazepam 5 mg tablet (Valium) 5 mg PO BID PRN Anxiety 03/24/24 03/24/24 History diclofenac sodium 1 % topical gel 1 ea topical PRN PRN bursitis 03/24/24 03/24/24 History dicyclomine 20 mg tablet 20 mg PO PRN irritable bowel 03/24/24 03/24/24 History furosemide 20 mg tablet 20 mg PO BID foot swelling 03/24/24 03/24/24 History galcanezumab-gnlm 120 mg/mL 300 mg subcut MONTHLY 03/24/24 03/24/24 History subcutaneous syringe (Emgality) golimumab 100 mg/mL subcutaneous 100 mg subcut MONTHLY 03/24/24 03/24/24 History syringe (Simponi) ketamine 50 mg/mL injection 1 mg intranasal BID 03/24/24 03/24/24 History solution krill oil 1,250 mg PO DAILY 03/24/24 03/24/24 History meloxicam 7.5 mg tablet 7.5 mg PO BID 03/24/24 03/24/24 History montelukast 10 mg tablet 10 mg PO DAILY 03/24/24 03/24/24 History multivitamin q-[id number] 1 tablet PO DAILY 03/24/24 03/24/24 History fumarate 18 mg-vitamin K 25 mcg tablet omeprazole 40 mg PO DAILY PRN Acid Reflux 03/24/24 03/24/24 History ondansetron HCl 4 mg tablet 4 mg PO Q6H PRN Nausea And Vomiting 03/24/24 03/24/24 History prednisone 5 mg tablet 5 mg PO DAILY PRN rheumatoid 03/24/24 03/24/24 History arthritis pregabalin 75 mg capsule 75 mg PO BID 03/24/24 03/24/24 History promethazine 25 mg tablet 25 mg PO DAILY nausea 03/24/24 03/24/24 History riboflavin (vitamin B2) 400 mg 400 mg PO BID 03/24/24 03/24/24 History tablet rizatriptan 10 mg tablet 10 mg DAILY PRN Migraine Headache 03/24/24 03/24/24 History semaglutide (weight loss) 1.7 1.7 mg subcut WEEKLY 03/24/24 03/24/24 History mg/0.75 mL subcutaneous pen injector (Wegovy) sour rincon extract 1,000 mg 3,000 mg PO DAILY 03/24/24 03/24/24 History capsule (Tart Rincon Extract) zolmitriptan 5 mg tablet 5 mg DAILY PRN Migraine Headache 03/24/24 03/24/24 History Allergies Allergy/AdvReac Type Severity Reaction Status Date / Time No Known Allergies Allergy Verified 03/23/24 16:00 Vital Signs Vital Signs - 24 hr 03/23/24 15:44 03/23/24 15:47 03/23/24 15:59 Temperature 97.9 F Pulse Rate 120 H 125 H Respiratory Rate 43 H 40 H 43 H Blood Pressure 94/66 L Pulse Oximetry 98 96 96 Oxygen Delivery BiPAP BiPAP BiPAP Fraction of Inspired Oxygen 03/23/24 15:48 03/23/24 16:37 03/23/24 16:45 Temperature Pulse Rate 121 H 131 H 131 H Respiratory Rate 40 H 44 H 45 H Blood Pressure Pulse Oximetry Oxygen Delivery Fraction of Inspired Oxygen 03/23/24 17:19 03/23/24 16:38 03/23/24 16:49 Temperature Pulse Rate 131 H 123 H Respiratory Rate 22 H Blood Pressure 141/83 H Pulse Oximetry 100 100 Oxygen Delivery BiPAP Fraction of Inspired Oxygen 03/23/24 17:26 03/23/24 17:26 03/23/24 16:46 Temperature 98.2 F Pulse Rate 120 H 123 H 131 H Respiratory Rate 17 47 H Blood Pressure 126/85 Pulse Oximetry 98 96 Oxygen Delivery Mechanical Ventilation Fraction of Inspired Oxygen 60 03/23/24 17:00 03/23/24 17:15 03/23/24 17:20 Temperature Pulse Rate 129 H 130 H 125 H Respiratory Rate 51 H 23 H 19 Blood Pressure 119/77 133/106 H 141/83 H Pulse Oximetry 96 100 100 Oxygen Delivery Fraction of Inspired Oxygen 03/23/24 17:45 03/23/24 18:00 03/23/24 18:01 Temperature 103.9 F H 103.9 F H Pulse Rate 127 H 123 H 123 H Respiratory Rate 20 20 20 Blood Pressure 152/95 H 138/80 Pulse Oximetry 97 99 98 Oxygen Delivery Fraction of Inspired Oxygen 03/23/24 18:15 03/23/24 18:18 03/23/24 18:27 Temperature 103.8 F H 103.8 F H Pulse Rate 119 H 120 H 118 H Respiratory Rate 25 H 26 H Blood Pressure 141/93 H Pulse Oximetry 98 97 94 Oxygen Delivery Mechanical Ventilation Fraction of Inspired Oxygen 45 03/23/24 19:28 03/23/24 19:38 03/23/24 19:57 Temperature Pulse Rate 114 H 111 H 110 H Respiratory Rate 33 H 21 H 33 H Blood Pressure Pulse Oximetry Oxygen Delivery Fraction of Inspired Oxygen 03/23/24 19:24 03/23/24 19:25 03/23/24 20:27 Temperature 102.4 F H 102.4 F H Pulse Rate 115 H 115 H 104 H Respiratory Rate 30 H 32 H Blood Pressure 101/65 108/67 Pulse Oximetry 94 94 99 Oxygen Delivery Mechanical Ventilation Fraction of Inspired Oxygen 60 03/23/24 19:26 03/23/24 19:30 03/23/24 19:49 Temperature 102.4 F H 102.3 F H 101.9 F H Pulse Rate 115 H 114 H 112 H Respiratory Rate 29 H 33 H 32 H Blood Pressure 104/67 Pulse Oximetry 94 94 93 Oxygen Delivery Fraction of Inspired Oxygen 03/23/24 19:50 03/23/24 19:55 03/23/24 20:00 Temperature 101.9 F H 101.8 F H 101.7 F H Pulse Rate 112 H 110 H 109 H Respiratory Rate 29 H 34 H 35 H Blood Pressure 99/60 L 96/66 L 96/60 L Pulse Oximetry 93 93 95 Oxygen Delivery Fraction of Inspired Oxygen 03/23/24 20:01 03/23/24 20:05 03/23/24 20:10 Temperature 101.7 F H 101.6 F H 101.5 F H Pulse Rate 109 H 109 H 108 H Respiratory Rate 29 H 30 H 31 H Blood Pressure 102/58 L 99/65 L Pulse Oximetry 95 95 94 Oxygen Delivery Fraction of Inspired Oxygen 03/23/24 20:33 03/23/24 21:12 Temperature 101.0 F H Pulse Rate 103 H 98 Respiratory Rate 29 H 31 H Blood Pressure Pulse Oximetry 99 Oxygen Delivery Fraction of Inspired Oxygen Exam Const: General: uncomfortable HENMT: Mouth: Yes moist mucous membranes Eyes: General: appearance normal, both eyes and all related structures Sclera: sclerae normal Pupils: Equal, round and reactive pupils present EOM: EOMs intact bilaterally Neck: Neck: supple Resp: Auscultation: rhonchi lower bilaterally and diminished lung sounds Cardio: Rate: tachycardic Rhythm: regular rhythm Urinary Catheter: Urinary Catheter: patent and draining Skin: General skin exam: normal color Neuro: Other: could not assess due to intubation Extrem: General: normal to inspection Psych: Mental Status: mental status grossly normal H&P: Results Labs Labs: Short CBC 03/23/24 Range/Units 16:35 WBC 15.2 H (4.5-10.0) K/mm3 Hgb 14.7 (12.0-15.0) g/dL Hct 43.4 (37.0-47.0) % Plt Count 216 (150-375) k/mm3 BMP 03/23/24 16:35 Sodium 134 L Potassium 3.5 Chloride 103 Carbon Dioxide 21 L BUN 24 H Creatinine 0.80 Glucose 132 H Calcium 9.1 Cardiac Enzymes 03/23/24 03/23/24 Range/Units 16:35 19:55 Troponin I 0.014 0.015 (0.000-0.034) ng/mL Liver Function 03/23/24 Range/Units 16:35 Total Bilirubin 1.6 H (0.2-1.3) mg/dL AST 59 H (14-36) U/L ALT 34 (6-35) U/L Alkaline Phosphatase 74 (38-126) U/L Albumin 4.0 (3.5-5.1) g/dL Urine 03/23/24 Range/Units 17:55 Urine Color Dark yellow (Yellow) Urine Appearance Cloudy H (Clear) Urine pH 6.0 (5.0-9.0) Ur Specific [place] 1.024 (1.001-1.035) Urine Protein 3+ H (Negative) mg/dL Urine Glucose (UA) Negative (Negative) mg/dL Assessment and Plan Assessment and plan (1) Septic shock: Code(s): A41.9 - Sepsis, unspecified organism; R65.21 - Severe sepsis with septic shock Status: Acute (2) Pneumonia: Code(s): J18.9 - Pneumonia, unspecified organism Status: Acute (3) Respiratory failure requiring intubation: Code(s): J96.90 - Respiratory failure, unspecified, unspecified whether with hypoxia or hypercapnia Status: Acute (4) Community acquired pneumonia: Code(s): J18.9 - Pneumonia, unspecified organism Status: Acute Plan Acute and principal conditions 1. Acute hypoxic respiratory failure 2. Hypokalemia. 3. NAGMA. 4. Sepsis w/shock 5. RUL nodule, 6mm Replete and monitor K Intubated and sedated Zosyn; IVFs f/u CT in outpatient Chronic and stable conditions 1. Migraines 2. RA. on Prednisone. monitor for need of stress dose steroids 3. Fibromyalgia. 4. GERD. 5. Recurrent depresison w/anxiety. Code status. Full VTE prophylaxis. SCDs; LYNNE Nutrition. NPO Hospitalist MIPS Advance Care Plan I have confirmed that the patient's Advanced Care Plan is present, code status is documented, or surrogate decision maker is listed in patient medical record.: Yes Medication Reconciliation I have utilized all available resources to obtain, update and review the patients current medications (includes all prescriptions, OTC, herbals, cannabis, and nutritional supplements).: Yes The patient is not eligible for med reconciliation; the patient is in a emergent medical situation where delaying treatment would jeopardize the patients health.: Yes
[2024-03-23] MEDS: NOREPINEPHRINE 8 MG/D5W 250 ML 8 MG/250 ML BAG 9.38 MG IV CONT (22:03)
[2024-03-23 22:25] LABS: Influenza A QL RT-PCR Negative (Negative); Influenza B QL RT-PCR Negative (Negative); SARS-CoV-2 RNA PCR Negative (Negative)
--- NOTE | 2024-03-23 22:30 | PC.NURSE ---
This patient, Gini Gleason, was admitted to Intensive Care Unit-11. Patient/family oriented to hospital policies and general routines including ID bracelet, bed and alarms, visiting hours, pain management, procedures, bathroom and other care routines, personal items, smoking policy, room service/diet, and visiting hours. Information on how to activate the Rapid Response Team has been discussed. Patient/Family are encouraged to report perceived risks to care and to ask questions if they do not understand what they are told or what they should do.
--- NOTE | 2024-03-23 22:38 | PC.NURSE ---
Moy updated via phone on mother being moved to ICU 11. All questions answered.
[2024-03-23] MEDS: MIDAZOLAM 100MG/NS 100ML(*CRX) 100 MG/100 ML BAG IV CONT (22:41)
[2024-03-23] MEDS: FENTANYL 2,500MCG/NS250ML(*CRX 2,500 MCG/250 ML BAG 20 MCG IV CONT (22:45)
[2024-03-23 23:19] LABS: Lactic Acid Reflex 2.3 mmol/L (0.7-2.0)
[2024-03-23] MEDS: MIDAZOLAM HCL (*CRX) 2 MG/2 ML VIAL 4 MG IV PUSH (23:23)
[2024-03-23 23:33] LABS: Troponin I 0.017 ng/mL (0.000-0.034)
[2024-03-23] MEDS: HEPARIN SODIUM 5,000 UNITS/ML VIAL 5000 UNITS SUB-Q (23:42)
[2024-03-23] MEDS: SODIUM CHLORIDE 0.9% IV 1,000 ML 100 ML IV CONT (23:42)
[2024-03-24] VITALS (34 sets, daily range): BP systolic 91–121; BP diastolic 64–92; PULSE 82–97; RESP 20–28; TEMP 37.1–39.9; O2SAT 94–100; BMI 35.2
--- NOTE | 2024-03-24 | ECHO_ITS ---
Patient Info Name: Gini Gleason Age: 54 years : 1970 Gender: Female Ht: 65 in Wt: 218 lbs BSA: 2.17 m2 HR: 85 bpm BP: 100 / 77 mmHg Technical Quality: Poor Exam Date: 03/24/2024 12:13 PM Exam Location: Echo Lab Patient Status: Inpatient Admit Date: 03/23/2024 Staff Ordering Physician: Walter Law MD Drop Forger: Joselyn Sharma RDCS Attending Provider: Eliseo Sierra MD Exam Type: CA echo doppler color flow Study Info Indications - CHF Complete two-dimensional, color flow and Doppler transthoracic echocardiogram is performed with contrast to opacify the left ventricle and to improve the deliniation of the left ventricle endocardial borders. Contrast/Agitated Saline Contrast/Ag. Saline: Definity Amount: 2.00 ml Existing IV Access: Yes Reason for Poor Study: poor echocardiographic windows Summary 1. Technically difficult study with limited views. 2. Left ventricular chamber dimension is normal. 3. Left ventricular systolic function is normal, estimated at 50-55%. 4. The left ventricular diastolic function is grade I diastolic dysfunction. 5. Right ventricular systolic function is normal. 6. There is mild tricuspid valve regurgitation. Left Ventricle Left ventricular chamber dimension is normal. Left ventricular systolic function is normal, estimated at 50-55%. There is no increased left ventricular wall thickness. The left ventricular diastolic function is grade I diastolic dysfunction. Right Ventricle Right ventricular chamber dimension is normal. Right ventricular systolic function is normal. Left Atria Left atrial chamber dimension is normal. Right Atria Right atrial chamber dimension is normal. Atrial Septum Intact interatrial septum visualized by color flow imaging. Aortic Valve The aortic valve is not well visualized. There is no aortic valve stenosis. There is no aortic valve regurgitation. Pulmonic Valve The pulmonic valve is not well visualized. There is no pulmonic regurgitation. Mitral Valve There is trace mitral valve regurgitation. Tricuspid Valve There is mild tricuspid valve regurgitation. Pericardium/Pleural There is no pericardial effusion. Inferior Vena Cava Normal inferior vena cava with <50% collapse upon inspiration consistent with elevated right atrial pressure, 8 mmHg. Aorta The aortic root size at the sinus of Valsalva is normal. Left Ventricular Outflow Tract Name Value Normal LVOT 2D LVOT Diameter 1.8 cm LVOT Doppler LVOT Peak Gradient 6 mmHg LVOT Mean Gradient 4 mmHg LVOT VTI 24 cm LVOT VTI/AV VTI Ratio 0.9 LVOT Stroke Volume 60 ml LVOT CO 5.2 l/min LVOT CI 2.4 l/min/m2 Pulmonic Valve Name Value Normal RVOT Doppler RVOT Peak Gradient 3 mmHg PV Doppler PV Peak Gradient 4 mmHg Mitral Valve Name Value Normal MV Doppler MV Decel Bossier 384 cm/s2 MV PHT 50 ms MV Area (PHT) 4.4 cm2 4.0-5.0 MV Diastolic Function MV E Peak Velocity 66 cm/s MV A Peak Velocity 81 cm/s MV E/A 0.8 MV Decel Time 173 ms MV Annular TDI MV E/e' (Septal) 4.5 <=8.0 MV E/e' (Lateral) 4.2 <=8.0 MV E/e' (Average) 4.3 Tricuspid Valve Name Value Normal Estimated PAP/RSVP RA Pressure 8 mmHg <=5 Aorta Name Value Normal Ascending Aorta Ao Root Diameter (MM) 3.1 cm Ao Root Diam Index (MM) 1.4 cm/m2 Aortic Valve Name Value Normal AV Doppler AV Peak Velocity 142 cm/s AV Peak Gradient 8 mmHg AV Mean Gradient 5 mmHg AV VTI 27 cm AV Area (Cont Eq VTI) 2.3 cm2 >=3.0 AV Area (Cont Eq Miguel) 2.3 cm2 AV Regurgitation 2D LVOT Area 2.6 cm2 Ventricles Name Value Normal LV Dimensions 2D/MM IVS Diastolic Thickness (2D) 0.9 cm 0.6-1.0 LVID Diastole (2D) 3.8 cm 3.8-5.2 LVIW Diastolic Thickness (2D) 0.9 cm 0.6-0.9 LVID Systole (2D) 2.8 cm 2.2-3.5 LVOT Diameter 1.8 cm LV Mass (2D Cubed) 94.54 g 67.00-162.00 LV Mass Index (2D Cubed) 44 g/m2 43-95 Relative Wall Thickness (2D) 0.45 LV Fractional Shortening/Ejection Fraction 2D/MM LV Fractional Shortening (2D) 31 % 27-45 LV EF (2D Teicholz) 58 % 54-74 LV Diastolic Volume (4C MOD) 75 ml LV EF (4C MOD) 35 % LV Diastolic Volume (2C MOD) 80 ml LV EF (2C MOD) 49 % LV Diastolic Volume (BP MOD) 79 ml 46-106 LV Diastolic Volume Index (BP MOD) 36 ml/m2 29-61 LV Systolic Volume (BP MOD) 47 ml 14-42 LV Systolic Volume Index (BP MOD) 21 ml/m2 8-24 LV EF (BP MOD) 41 % 54-74 LV Diastolic Length (4C) 7.8 cm LV Systolic Length (4C) 7.3 cm LV Stroke Volume (4C MOD) 27 ml Atria Name Value Normal LA Dimensions LA Dimension (MM) 3.9 cm 2.7-3.8 Report Signatures
[2024-03-24 02:03] LABS: Reflex Lactic Acid Yes or No Add Lactic
[2024-03-24 02:26] LABS: MRSA (PCR) NOT DETECTED (NOT DETECTE)
[2024-03-24 04:28] LABS: Basophils Absolute Auto 0.1 K/mm3 (0.0-0.1); Basophils Percent Auto 0.8 % (0.2-1.2); Eosinophils Absolute Auto 0.1 K/mm3 (0-0.3); Eosinophils Percent Auto 1.1 % (0-4.4); Hematocrit 36.4 % (37.0-47.0); Hemoglobin 12.2 g/dL (12.0-15.0); Immature Granulocyte Absolute 0.08 K/mm3 (0.00-0.031); Immature Granulocyte Percent A 0.7 % (0-0.5); Lymphocytes Absolute Auto 0.34 K/mm3 (0.9-3.2); Lymphocytes Percent Auto 3.1 % (18.3-44.2); Mean Corpuscular HGB Conc 33.5 g/dl (32-36); Mean Corpuscular Hemoglobin 32.3 pg (26-34); Mean Corpuscular Volume 96.3 fl (80-100); Mean Platelet Volume 10.4 fl (7.4-10.4); Monocytes Absolute Auto 0.2 K/mm3 (0.1-0.6); Monocytes Percent Auto 1.5 % (2.6-8.5); Neutrophils Absolute Auto 10.2 K/mm3 (1.3-6.7); Neutrophils Percent Auto 92.8 % (45.5-73.1); Platelet Count Result 181 k/mm3 (150-375); Red Blood Count 3.78 M/mm3 (4.2-5.4); Red Cell Distribution Width 12.6 % (11.5-14.5)
[2024-03-24 04:44] LABS: Lactic Acid 1.3 mmol/L (0.7-2.0)
[2024-03-24 04:45] LABS: Alanine Aminotransferase 29 U/L (6-35); Albumin Level 2.9 g/dL (3.5-5.1); Alkaline Phosphatase 62 U/L (38-126); Anion Gap 8 mmol/L (4-12); Aspartate Amino Transferase 47 U/L (14-36); Blood Urea Nitrogen 19 mg/dL (7-17); Calcium 7.4 mg/dL (8.4-10.2); Carbon Dioxide 16 mmol/L (22-30); Chloride 116 mmol/L (98-107); Estimated CRCL calculation 110 ml/min; Estimated Glomerular Filt Rate > 60; Glucose 243 mg/dL (65-110); Potassium 3.3 mmol/L (3.4-5.0); Sodium 140 mmol/L (137-145)
[2024-03-24 05:04] LABS: Anisocytosis 1+; Burr Cells 1+; Large Platelets Present; Platelet Estimate Adequate (Adequate); Schistocytes None Seen
[2024-03-24 05:48] LABS: Alveolar/Arterial O2 Gradient 93.7 mmHg; Base Excess ABG -10.2 mEq/l (+/-2.0); Carboxyhemoglobin 0.5 % THb (0-2.0); Fractional Inspired Oxygen 30 %; HCO3 ABG 15.2 mEq/l (22.0-26.0); Methemoglobin ABG 0.3 %THb (0-1.5); Oxygen Content ABG 16.9 %vol (16.0-22.0); Oxygen Saturation ABG 95.2 % (95.0-100.0); Oxyhemoglobin 95.7 % THb (90.0-100.0); PCO2 ABG 32.1 mmHg (35.0-45.0); PO2 ABG 82.5 mmHg (80.0-100.0); PO2 FiO2 Ratio Arterial Blood 2.75 %; Reduced Hemoglobin 3.5 %THb (0-5.0); Total Hemoglobin 12.5 g/dL (12.0-18.0); pH ABG 7.292 (7.350-7.450)
[2024-03-24 05:49] LABS: Arterial Blood Gas PEEP 10 cmH2O; Arterial Blood Gas Tidal Volume 350 ml; Arterial Blood Gas Vent Mode CMV; Arterial Blood Gas Ventilator rate 20 /MIN; Device VENTILATOR; Modified Allen's Test Unable to perform; Site Drawn RIGHT RADIAL
[2024-03-24] MEDS: VANCOMYCIN 1,500 MG/NS 500 ML 1,500 MG/500 ML BAG 250 MG IVPB ×2 (06:08→17:45)
[2024-03-24] MEDS: SODIUM BICARBONATE 8.4% 50 MEQ/50 ML SYRINGE IV PUSH (07:10)
[2024-03-24 08:38] LABS: Glucose Point of Care 199 mg/dl (65-105)
[2024-03-24] MEDS: POTASSIUM CHLORIDE INJ 40 MEQ in SODIUM CHLORIDE 0.9% IV 500 ML 130 MEQ IVPB (08:40)
[2024-03-24] MEDS: DOXYCYCLINE 100 MG/NS 100 ML 100 MG/100 ML BAG IVPB ×2 (08:40→20:44)
[2024-03-24] MEDS: SODIUM BICARBONATE TAB 650 MG TABLET FEED TUBE ×2 (08:40→17:42)
[2024-03-24] MEDS: PIPERACILLN/TAZ 3.375GM/NS50ML 3.375 GM/50 ML BAG IVPB ×4 (08:40→23:52)
[2024-03-24] MEDS: MINERAL OIL/WHITE PETROLATUM OINTMENT 1 APPLIC EACH EYE ×2 (08:41→20:47)
[2024-03-24] MEDS: PANTOPRAZOLE SODIUM IV 40 MG VIAL IV PUSH (08:41)
[2024-03-24] MEDS: FENTANYL 2,500MCG/NS250ML(*CRX 2,500 MCG/250 ML BAG 20 MCG IV CONT ×2 (08:47→22:13)
--- NOTE | 2024-03-24 09:19 | P.CONIN_ITS ---
Assessment and Plan Assessment and plan (1) Acute respiratory failure: Code(s): J96.00 - Acute respiratory failure, unspecified whether with hypoxia or hypercapnia Status: Acute Assessment and Plan: Acute respiratory failure likely secondary to community-acquired pneumonia with possible component of congestive heart failure Chest CTA IMPRESSION: 1. Pneumonia in multiple areas with the largest in the leftlower lobe. 2. No pulmonary embolism. 3. Nodule in the right upper lobe. 6 months follow-up CT is advised. Patient now intubated and sedated Ventilator settings reviewed. I will decrease PEEP to 8 Blood cultures have been sent With check sputum culture urine Legionella urine pneumococcal antigen Currently is patient on vanco and Zosyn. I will add doxycycline Hold further IV fluids Bronchodilators (2) Septic shock: Code(s): A41.9 - Sepsis, unspecified organism; R65.21 - Severe sepsis with septic shock Status: Acute Assessment and Plan: Post intubation patient became hypotensive and was started on Levophed Levophed has been weaned off this morning Treatment of pneumonia as above Will hold further IV fluids as patient is seated close to 5 L of IV fluids. Patient is chronically on low-dose prednisone which is marked as p.r.n. on her medication list. I do not know how frequently she takes it. Will empirically start low-dose steroids daily to avoid any insufficiency (3) Community acquired pneumonia: Code(s): J18.9 - Pneumonia, unspecified organism Status: Acute Assessment and Plan: See above (4) Congestive heart failure: Code(s): I50.9 - Heart failure, unspecified Status: Acute Assessment and Plan: Patient has elevated BNP Hold further fluids Check echocardiogram Plan DVT prophylaxis -SC heparin Stress ulcer prophylaxis -Protonix Nutrition -start Tube Feeds Code Status - Full Code Total Critical Care Time - 35minutes Due to a high probability of clinically significant, life threatening deterioration, the patient required my highest level of preparedness to intervene emergently and I personally spent this critical care time directly and personally managing the patient. This critical care time included obtaining a history; examining the patient; pulse oximetry; ordering and review of studies; arranging urgent treatment with development of a management plan; evaluation of patient's response to treatment; frequent reassessment; and discussions with other providers. It was exclusive of separately billable procedures and treating other patients and teaching time. Please see Assessment and Plan section and the rest of the note for further information on patient assessment and treatment [employer] Consult Note Consult date: 03/24/24 Reason for consult: Acute respiratory failure HPI: Gini Gleason is a 54 year old female with history of migraines and arthritis who is visiting from [place] was brought to ER yesterday with respiratory distress. History was provided by her stepson in the ER as per reports that there was respiratory symptom and infection was going around the family and patient also developed cough and shortness of breath with wheezing. In the ER patient was tachypneic and initially tried on BiPAP but failed and was intubated. Post intubation patient became hypotensive and a central venous catheter was placed patient was started on Levophed. Patient was admitted to ICU for further evaluation management. This morning on my evaluation she is sedated intubated and on mechanical ventilation. Levophed has been weaned off. She is on fentanyl Versed and IV fluids. History is unobtainable and was obtained from chart review and physician sign-out from ER prior to admission Review of Systems Review of Systems: ROS unobtainable: Yes unobtainable due to endotracheal tu be, unobtainable due to medical condition and unobtainable due to mental status PMFSH Past Medical History Medical History Depression Fibromyalgia Migraine Obesity Rheumatoid arthritis Social History Social History Smoking status: Never smoker Alcohol intake: never Substance use: never Substance use type: does not use Spiritual care concerns: No Meds Home Medications and Allergies Home Medications Medication Instructions Recorded Confirmed Type amitriptyline 10 mg tablet 10 mg PO DAILY 03/24/24 03/24/24 History atogepant 60 mg tablet (Qulipta) 60 mg PO DAILY 03/24/24 03/24/24 History buprenorphine 4 mg-naloxone 1 mg 1 film sublingual BID 03/24/24 03/24/24 History sublingual film buspirone 30 mg tablet 30 mg PO BID 03/24/24 03/24/24 History clindamycin phosphate 1 % lotion 1 applic topical PRN PRN leg sores 03/24/24 03/24/24 History cyclobenzaprine 10 mg tablet 10 mg PO BID 03/24/24 03/24/24 History desvenlafaxine succinate 100 mg 100 mg PO DAILY 03/24/24 03/24/24 History tablet,extended release 24 hr diazepam 5 mg tablet (Valium) 5 mg PO BID PRN Anxiety 03/24/24 03/24/24 History diclofenac sodium 1 % topical gel 1 ea topical PRN PRN bursitis 03/24/24 03/24/24 History dicyclomine 20 mg tablet 20 mg PO PRN irritable bowel 03/24/24 03/24/24 History furosemide 20 mg tablet 20 mg PO BID foot swelling 03/24/24 03/24/24 History galcanezumab-gnlm 120 mg/mL 300 mg subcut MONTHLY 03/24/24 03/24/24 History subcutaneous syringe (Emgality) golimumab 100 mg/mL subcutaneous 100 mg subcut MONTHLY 03/24/24 03/24/24 History syringe (Simponi) ketamine 50 mg/mL injection 1 mg intranasal BID 03/24/24 03/24/24 History solution krill oil 1,250 mg PO DAILY 03/24/24 03/24/24 History meloxicam 7.5 mg tablet 7.5 mg PO BID 03/24/24 03/24/24 History montelukast 10 mg tablet 10 mg PO DAILY 03/24/24 03/24/24 History multivitamin o-aocgxnxd-tptuegs 1 tablet PO DAILY 03/24/24 03/24/24 History fumarate 18 mg-vitamin K 25 mcg tablet omeprazole 40 mg PO DAILY PRN Acid Reflux 03/24/24 03/24/24 History ondansetron HCl 4 mg tablet 4 mg PO Q6H PRN Nausea And Vomiting 03/24/24 03/24/24 History prednisone 5 mg tablet 5 mg PO DAILY PRN rheumatoid 03/24/24 03/24/24 History arthritis pregabalin 75 mg capsule 75 mg PO BID 03/24/24 03/24/24 History promethazine 25 mg tablet 25 mg PO DAILY nausea 03/24/24 03/24/24 History riboflavin (vitamin B2) 400 mg 400 mg PO BID 03/24/24 03/24/24 History tablet rizatriptan 10 mg tablet 10 mg DAILY PRN Migraine Headache 03/24/24 03/24/24 History semaglutide (weight loss) 1.7 1.7 mg subcut WEEKLY 03/24/24 03/24/24 History mg/0.75 mL subcutaneous pen injector (Boogie) sour [place] extract 1,000 mg 3,000 mg PO DAILY 03/24/24 03/24/24 History capsule ([place]art [place] Extract) zolmitriptan 5 mg tablet 5 mg DAILY PRN Migraine Headache 03/24/24 03/24/24 History Allergies Allergy/AdvReac Type Severity Reaction Status Date / Time No Known Allergies Allergy Verified 03/23/24 16:00 Vital Signs Vital Signs - 24 hr 03/23/24 15:44 03/23/24 15:47 03/23/24 15:59 Temperature 36.6 C Pulse Rate 120 H 125 H Respiratory Rate 43 H 40 H 43 H Blood Pressure 94/66 L Pulse Oximetry 98 96 96 Oxygen Delivery BiPAP BiPAP BiPAP Oxygen Flow Rate Fraction of Inspired Oxygen 03/23/24 15:48 03/23/24 16:37 03/23/24 16:45 Temperature Pulse Rate 121 H 131 H 131 H Respiratory Rate 40 H 44 H 45 H Blood Pressure Pulse Oximetry Oxygen Delivery Oxygen Flow Rate Fraction of Inspired Oxygen 03/23/24 17:19 03/23/24 16:38 03/23/24 16:49 Temperature Pulse Rate 131 H 123 H Respiratory Rate 22 H Blood Pressure 141/83 H Pulse Oximetry 100 100 Oxygen Delivery BiPAP Oxygen Flow Rate Fraction of Inspired Oxygen 03/23/24 17:26 03/23/24 17:26 03/23/24 16:46 Temperature 36.8 C Pulse Rate 120 H 123 H 131 H Respiratory Rate 17 47 H Blood Pressure 126/85 Pulse Oximetry 98 96 Oxygen Delivery Mechanical Ventilation Oxygen Flow Rate Fraction of Inspired Oxygen 60 03/23/24 17:00 03/23/24 17:15 03/23/24 17:20 Temperature Pulse Rate 129 H 130 H 125 H Respiratory Rate 51 H 23 H 19 Blood Pressure 119/77 133/106 H 141/83 H Pulse Oximetry 96 100 100 Oxygen Delivery Oxygen Flow Rate Fraction of Inspired Oxygen 03/23/24 17:45 03/23/24 18:00 03/23/24 18:01 Temperature 39.9 C H 39.9 C H Pulse Rate 127 H 123 H 123 H Respiratory Rate 20 20 20 Blood Pressure 152/95 H 138/80 Pulse Oximetry 97 99 98 Oxygen Delivery Oxygen Flow Rate Fraction of Inspired Oxygen 03/23/24 18:15 03/23/24 18:18 03/23/24 18:27 Temperature 39.9 C H 39.9 C H Pulse Rate 119 H 120 H 118 H Respiratory Rate 25 H 26 H Blood Pressure 141/93 H Pulse Oximetry 98 97 94 Oxygen Delivery Mechanical Ventilation Oxygen Flow Rate Fraction of Inspired Oxygen 45 03/23/24 19:28 03/23/24 19:38 03/23/24 19:57 Temperature Pulse Rate 114 H 111 H 110 H Respiratory Rate 33 H 21 H 33 H Blood Pressure Pulse Oximetry Oxygen Delivery Oxygen Flow Rate Fraction of Inspired Oxygen 03/23/24 19:24 03/23/24 19:25 03/23/24 20:27 Temperature 39.1 C H 39.1 C H Pulse Rate 115 H 115 H 104 H Respiratory Rate 30 H 32 H Blood Pressure 101/65 108/67 Pulse Oximetry 94 94 99 Oxygen Delivery Mechanical Ventilation Oxygen Flow Rate Fraction of Inspired Oxygen 60 03/23/24 19:26 03/23/24 19:30 03/23/24 19:49 Temperature 39.1 C H 39.1 C H 38.8 C H Pulse Rate 115 H 114 H 112 H Respiratory Rate 29 H 33 H 32 H Blood Pressure 104/67 Pulse Oximetry 94 94 93 Oxygen Delivery Oxygen Flow Rate Fraction of Inspired Oxygen 03/23/24 19:50 03/23/24 19:55 03/23/24 20:00 Temperature 38.8 C H 38.8 C H 38.7 C H Pulse Rate 112 H 110 H 109 H Respiratory Rate 29 H 34 H 35 H Blood Pressure 99/60 L 96/66 L 96/60 L Pulse Oximetry 93 93 95 Oxygen Delivery Oxygen Flow Rate Fraction of Inspired Oxygen 03/23/24 20:01 03/23/24 20:05 03/23/24 20:10 Temperature 38.7 C H 38.7 C H 38.6 C H Pulse Rate 109 H 109 H 108 H Respiratory Rate 29 H 30 H 31 H Blood Pressure 102/58 L 99/65 L Pulse Oximetry 95 95 94 Oxygen Delivery Oxygen Flow Rate Fraction of Inspired Oxygen 03/23/24 20:33 03/23/24 21:12 03/23/24 22:03 Temperature 38.3 C H Pulse Rate 103 H 98 91 Respiratory Rate 29 H 31 H Blood Pressure 85/65 L Pulse Oximetry 99 Oxygen Delivery Oxygen Flow Rate Fraction of Inspired Oxygen 03/23/24 22:12 03/23/24 22:18 03/23/24 22:20 Temperature Pulse Rate 93 90 90 Respiratory Rate 25 H 24 H Blood Pressure 87/62 L Pulse Oximetry Oxygen Delivery Oxygen Flow Rate Fraction of Inspired Oxygen 03/23/24 22:41 03/23/24 22:30 03/23/24 22:30 Temperature Pulse Rate 95 92 Respiratory Rate 22 H Blood Pressure Pulse Oximetry 99 100 Oxygen Delivery Mechanical Ventilation Mechanical Ventilation Oxygen Flow Rate 20 Fraction of Inspired Oxygen 60 60 03/23/24 22:30 03/23/24 22:40 03/23/24 23:45 Temperature 37.6 C H Pulse Rate 96 92 92 Respiratory Rate 27 H Blood Pressure 101/67 112/77 Pulse Oximetry 100 100 Oxygen Delivery Mechanical Ventilation Oxygen Flow Rate Fraction of Inspired Oxygen 60 03/23/24 22:45 03/24/24 00:00 03/24/24 00:45 Temperature Pulse Rate 96 93 93 Respiratory Rate 27 H Blood Pressure 118/89 119/90 Pulse Oximetry Oxygen Delivery Oxygen Flow Rate Fraction of Inspired Oxygen 03/24/24 01:00 03/24/24 00:00 03/24/24 01:00 Temperature Pulse Rate 92 93 92 Respiratory Rate 23 H 22 H Blood Pressure 111/85 Pulse Oximetry Oxygen Delivery Oxygen Flow Rate Fraction of Inspired Oxygen 03/24/24 01:15 03/24/24 00:00 03/24/24 00:00 Temperature Pulse Rate 92 94 Respiratory Rate 24 H Blood Pressure 115/80 Pulse Oximetry Oxygen Delivery Oxygen Flow Rate Fraction of Inspired Oxygen 40 03/24/24 00:00 03/24/24 00:00 03/23/24 22:45 Temperature 37.7 C H Pulse Rate 94 Respiratory Rate 24 H Blood Pressure 118/89 Pulse Oximetry 100 100 Oxygen Delivery Mechanical Ventilation Oxygen Flow Rate 20 Fraction of Inspired Oxygen 40 60 03/24/24 00:00 03/24/24 02:00 03/24/24 02:00 Temperature Pulse Rate 93 91 90 Respiratory Rate 23 H Blood Pressure 112/85 Pulse Oximetry 99 Oxygen Delivery Oxygen Flow Rate Fraction of Inspired Oxygen 03/24/24 02:00 03/24/24 02:00 03/24/24 02:00 Temperature Pulse Rate 91 91 91 Respiratory Rate 20 20 Blood Pressure 112/85 Pulse Oximetry Oxygen Delivery Oxygen Flow Rate Fraction of Inspired Oxygen 03/24/24 02:45 03/24/24 02:20 03/24/24 04:00 Temperature Pulse Rate 90 89 89 Respiratory Rate Blood Pressure 104/80 121/86 Pulse Oximetry 99 Oxygen Delivery Mechanical Ventilation Oxygen Flow Rate Fraction of Inspired Oxygen 40 03/24/24 04:00 03/24/24 04:00 03/24/24 05:45 Temperature Pulse Rate 89 89 88 Respiratory Rate 28 H 28 H Blood Pressure 114/87 Pulse Oximetry Oxygen Delivery Oxygen Flow Rate Fraction of Inspired Oxygen 03/24/24 05:25 03/24/24 04:00 03/24/24 04:00 Temperature 37.4 C Pulse Rate 87 89 Respiratory Rate 21 H Blood Pressure 121/86 Pulse Oximetry 98 98 Oxygen Delivery Mechanical Ventilation Oxygen Flow Rate Fraction of Inspired Oxygen 30 30 03/24/24 04:00 03/24/24 06:00 03/24/24 06:00 Temperature Pulse Rate 88 88 Respiratory Rate 20 20 Blood Pressure 108/82 Pulse Oximetry 98 98 Oxygen Delivery Mechanical Ventilation Oxygen Flow Rate 20 Fraction of Inspired Oxygen 30 03/24/24 06:00 03/24/24 06:00 03/24/24 04:30 Temperature Pulse Rate 88 88 92 Respiratory Rate 20 21 H Blood Pressure 108/92 H Pulse Oximetry Oxygen Delivery Oxygen Flow Rate Fraction of Inspired Oxygen 03/24/24 04:00 03/24/24 06:00 03/24/24 06:30 Temperature Pulse Rate 97 89 89 Respiratory Rate Blood Pressure 100/84 Pulse Oximetry Oxygen Delivery Oxygen Flow Rate Fraction of Inspired Oxygen 03/24/24 08:03 03/24/24 08:00 03/24/24 08:00 Temperature Pulse Rate 83 90 90 Respiratory Rate 22 H Blood Pressure 100/77 Pulse Oximetry 98 Oxygen Delivery Mechanical Ventilation Oxygen Flow Rate Fraction of Inspired Oxygen 30 03/24/24 08:00 03/24/24 08:00 03/24/24 08:47 Temperature 37.3 C Pulse Rate 90 83 85 Respiratory Rate 22 H 22 H 22 H Blood Pressure 100/77 Pulse Oximetry 98 Oxygen Delivery Oxygen Flow Rate Fraction of Inspired Oxygen 03/24/24 08:47 03/24/24 01:01 Temperature Pulse Rate 85 92 Respiratory Rate 22 H Blood Pressure Pulse Oximetry Oxygen Delivery Oxygen Flow Rate Fraction of Inspired Oxygen Results Labs 03/24/24 04:16 03/24/24 04:16 Labs: Impressions Abdomen X-Ray 03/23/24 17:28 IMPRESSION: 1. Nasogastric tube tip in the stomach. Chest X-Ray 03/23/24 17:32 IMPRESSION: Opacification in the left mid and lower zone suggestive of pneumonia. Follow-up advised. Possibility of left pleural effusion is not excluded. Chest CTA 03/23/24 19:45 IMPRESSION: 1. Pneumonia in multiple areas with the largest in the left lower lobe. 2. No pulmonary embolism. 3. Nodule in the right upper lobe. 6 months follow-up CT is advised. Chest X-Ray 03/24/24 06:04 Impression: Moderate left pleural effusion with probable left lower lobe and partial left midlung atelectatic change. Correlate for underlying pneumonia. Support tubes, as above. Short CBC 03/23/24 03/24/24 Range/Units 16:35 04:16 WBC 15.2 H 11.0 H (4.5-10.0) K/mm3 Hgb 14.7 12.2 (12.0-15.0) g/dL Hct 43.4 36.4 L (37.0-47.0) % Plt Count 216 181 (150-375) k/mm3 BMP 03/23/24 03/24/24 16:35 04:16 Sodium 134 L 140 Potassium 3.5 3.3 L Chloride 103 116 H Carbon Dioxide 21 L 16 L BUN 24 H 19 H Creatinine 0.80 0.60 L Glucose 132 H 243 H Calcium 9.1 7.4 L Cardiac Enzymes 03/23/24 03/23/24 03/23/24 Range/Units 16:35 19:55 22:54 Troponin I 0.014 0.015 0.017 (0.000-0.034) ng/mL Liver Function 03/23/24 03/24/24 Range/Units 16:35 04:16 Total Bilirubin 1.6 H 1.0 (0.2-1.3) mg/dL AST 59 H 47 H (14-36) U/L ALT 34 29 (6-35) U/L Alkaline Phosphatase 74 62 (38-126) U/L Albumin 4.0 2.9 L (3.5-5.1) g/dL Urine 03/23/24 Range/Units 17:55 Urine Color Dark yellow (Yellow) Urine Appearance Cloudy H (Clear) Urine pH 6.0 (5.0-9.0) Ur Specific [place] 1.024 (1.001-1.035) Urine Protein 3+ H (Negative) mg/dL Urine Glucose (UA) Negative (Negative) mg/dL Quality VTE Prophylaxis VTE prophylaxis: pharmacologic ordered Hospitalist MIPS Advance Care Plan I have confirmed that the patient's Advanced Care Plan is present, code status is documented, or surrogate decision maker is listed in patient medical record.: Yes Medication Reconciliation I have utilized all available resources to obtain, update and review the patients current medications (includes all prescriptions, OTC, herbals, cannabis, and nutritional supplements).: Yes
[2024-03-24] MEDS: HYDROCORTISONE SODIUM SUCCINATE 100 MG/2 ML VIAL IV PUSH (10:11)
[2024-03-24] MEDS: PERFLUTREN LIPID MICROSPHERES 1.5 ML VIAL DILUTED TO 10 ML TOTAL VOLUME IV PUSH (12:40)
[2024-03-24 12:59] LABS: Glucose Point of Care 151 mg/dl (65-105)
[2024-03-24] MEDS: HEPARIN SODIUM 5,000 UNITS/ML VIAL 5000 UNITS SUB-Q ×2 (13:05→21:00)
[2024-03-24] MEDS: CENTRAL LINE FLUSH 10 ML IV PUSH ×2 (13:05→20:52)
--- NOTE | 2024-03-24 13:56 | IVDEFINITY ---
Prior to administration of IV Definity the patient was educated on the risks and benefits of the imaging enhancing agent including potential adverse side effects. The patient verbalized understanding. Allergies were verified. No exclusion criteria were identified and at least one of the following inclusion criteria were met: 1) physician request, 2) patient technically difficult to image (per the [place] [employer] guidelines of two or more segments not discernable within the apical view), or 3) questionable left ventricular function. ?
[2024-03-24 17:39] LABS: Glucose Point of Care 155 mg/dl (65-105)
[2024-03-24 20:33] LABS: Glucose Point of Care 182 mg/dl (65-105)
[2024-03-24] MEDS: MIDAZOLAM 100MG/NS 100ML(*CRX) 100 MG/100 ML BAG IV CONT (23:02)
[2024-03-24 23:57] LABS: Glucose Point of Care 173 mg/dl (65-105)
[2024-03-25] VITALS (38 sets, daily range): BP systolic 105–129; BP diastolic 76–88; PULSE 75–95; RESP 3–30; TEMP 37.7–39.1; O2SAT 95–99
[2024-03-25] MEDS: ACETAMINOPHEN ELIXIR 325 MG/10.15 ML UDC 650 MG FEED TUBE ×3 (02:38→20:26)
[2024-03-25 04:45] LABS: Basophils Percent Auto 0.2 % (0.2-1.2); Hematocrit 31.7 % (37.0-47.0); Hemoglobin 10.5 g/dL (12.0-15.0); Immature Granulocyte Absolute 0.51 K/mm3 (0.00-0.031); Immature Granulocyte Percent A 5.6 % (0-0.5); Lymphocytes Absolute Auto 0.55 K/mm3 (0.9-3.2); Lymphocytes Percent Auto 6.1 % (18.3-44.2); Mean Corpuscular HGB Conc 33.1 g/dl (32-36); Mean Corpuscular Hemoglobin 31.7 pg (26-34); Mean Corpuscular Volume 95.8 fl (80-100); Mean Platelet Volume 10.9 fl (7.4-10.4); Monocytes Absolute Auto 0.4 K/mm3 (0.1-0.6); Monocytes Percent Auto 4.4 % (2.6-8.5); Neutrophils Absolute Auto 7.6 K/mm3 (1.3-6.7); Neutrophils Percent Auto 83.7 % (45.5-73.1); Platelet Count Result 201 k/mm3 (150-375); Red Blood Count 3.31 M/mm3 (4.2-5.4); Red Cell Distribution Width 13.1 % (11.5-14.5); White Blood Count 9.1 K/mm3 (4.5-10.0)
[2024-03-25 05:11] LABS: Alanine Aminotransferase 34 U/L (6-35); Albumin Level 2.6 g/dL (3.5-5.1); Alkaline Phosphatase 55 U/L (38-126); Anion Gap 6 mmol/L (4-12); Aspartate Amino Transferase 58 U/L (14-36); Bilirubin,Total 0.7 mg/dL (0.2-1.3); Blood Urea Nitrogen 35 mg/dL (7-17); Calcium 8.1 mg/dL (8.4-10.2); Carbon Dioxide 20 mmol/L (22-30); Chloride 119 mmol/L (98-107); Estimated CRCL calculation 76 ml/min; Estimated Glomerular Filt Rate > 60; Glucose 179 mg/dL (65-110); Potassium 3.3 mmol/L (3.4-5.0); Sodium 145 mmol/L (137-145)
[2024-03-25 05:17] LABS: Burr Cells 1+; Ovalocytes 1+; Platelet Estimate Adequate (Adequate); Schistocytes None Seen
[2024-03-25 05:36] LABS: Vancomycin Trough 15.9 ug/mL (10.0-20.0)
[2024-03-25 05:38] LABS: Alveolar/Arterial O2 Gradient 95.7 mmHg; Carboxyhemoglobin 0.5 % THb (0-2.0); Fractional Inspired Oxygen 30 %; HCO3 ABG 14.7 mEq/l (22.0-26.0); Methemoglobin ABG 0.3 %THb (0-1.5); Oxygen Content ABG 15.5 %vol (16.0-22.0); Oxygen Saturation ABG 96.7 % (95.0-100.0); Oxyhemoglobin 96.3 % THb (90.0-100.0); PCO2 ABG 25.9 mmHg (35.0-45.0); PO2 ABG 87.8 mmHg (80.0-100.0); PO2 FiO2 Ratio Arterial Blood 2.93 %; Reduced Hemoglobin 2.9 %THb (0-5.0); Total Hemoglobin 11.4 g/dL (12.0-18.0); pH ABG 7.373 (7.350-7.450)
[2024-03-25 05:41] LABS: Arterial Blood Gas Vent Mode CMV; Arterial Blood Gas Ventilator rate 20 /MIN; Device VENTILATOR; Modified Allen's Test Pass; Site Drawn LEFT RADIAL
[2024-03-25 05:42] LABS: Arterial Blood Gas PEEP 8 cmH2O; Arterial Blood Gas Tidal Volume 350 ml
[2024-03-25] MEDS: PIPERACILLN/TAZ 3.375GM/NS50ML 3.375 GM/50 ML BAG IVPB ×3 (06:04→17:30)
[2024-03-25] MEDS: HEPARIN SODIUM 5,000 UNITS/ML VIAL 5000 UNITS SUB-Q ×3 (06:07→23:04)
[2024-03-25] MEDS: CENTRAL LINE FLUSH 10 ML IV PUSH ×3 (06:07→23:05)
[2024-03-25] MEDS: VANCOMYCIN 1,500 MG/NS 500 ML 1,500 MG/500 ML BAG 250 MG IVPB ×2 (06:29→17:30)
--- NOTE | 2024-03-25 08:49 | P.PNINT_ITS ---
Progress Note: A&P Assessment and Plan (1) Acute respiratory failure: Code(s): J96.00 - Acute respiratory failure, unspecified whether with hypoxia or hypercapnia Status: Acute Assessment and Plan: Acute respiratory failure likely secondary to community-acquired pneumonia with possible component of congestive heart failure Chest CTA IMPRESSION: 1. Pneumonia in multiple areas with the largest in the leftlower lobe. 2. No pulmonary embolism. 3. Nodule in the right upper lobe. 6 months follow-up CT is advised. Patient now intubated and sedated Ventilator settings reviewed. Currently peep is at 8 and FiO2 30% Blood cultures are growing Gram-positive cocci Pending sputum culture urine Legionella urine pneumococcal antigen Currently is patient on vanco, doxycycline and Zosyn. Hold further IV fluids Bronchodilators Chest x-ray reviewed and left side appears her support lung exam appears worse. Will hold weaning trial today and administer Lasix and continue current treatment for pneumonia (2) Septic shock: Code(s): A41.9 - Sepsis, unspecified organism; R65.21 - Severe sepsis with septic shock Status: Acute Assessment and Plan: Post intubation patient became hypotensive and was started on Levophed Levophed has been weaned off for the last 24 hours Treatment of pneumonia as above Will hold further IV fluids as patient is is positive on IV fluids Patient is chronically on low-dose prednisone which is marked as p.r.n. on her medication list. I do not know how frequently she takes it. Continue low-dose steroids daily to avoid any insufficiency (3) Community acquired pneumonia: Code(s): J18.9 - Pneumonia, unspecified organism Status: Acute Assessment and Plan: See above (4) Congestive heart failure: Code(s): I50.9 - Heart failure, unspecified Status: Acute Assessment and Plan: Patient has elevated BNP Hold further fluids Echocardiogram Summary 1. Technically difficult study with limited views. 2. Left ventricular chamber dimension is normal. 3. Left ventricular systolic function is normal, estimated at 50-55%. 4. The left ventricular diastolic function is grade I diastolic dysfunction. 5. Right ventricular systolic function is normal. 6. There is mild tricuspid valve regurgitation. (5) Bacteremia: Code(s): R78.81 - Bacteremia Status: Acute Assessment and Plan: Patient is growing Gram-positive cocci in her blood Identification and susceptibilities pending Continue vancomycin Echo negative for any vegetations Plan DVT prophylaxis -SC heparin Stress ulcer prophylaxis -Protonix Nutrition -start Tube Feeds Code Status - Full Code I spoke to and updated patient's at bedside and answered all his questions. Total Critical Care Time - 32 minutes Due to a high probability of clinically significant, life threatening deterioration, the patient required my highest level of preparedness to intervene emergently and I personally spent this critical care time directly and personally managing the patient. This critical care time included obtaining a history; examining the patient; pulse oximetry; ordering and review of studies; arranging urgent treatment with development of a management plan; evaluation of patient's response to treatment; frequent reassessment; and discussions with other providers. It was exclusive of separately billable procedures and treating other patients and teaching time. Please see Assessment and Plan section and the rest of the note for further information on patient assessment and treatment Subjective Date/time seen: 03/25/24 Overnight events reviewed. febrile Continues to be on mechanical ventilation 30% FiO2 8 of PEEP Off vasopressor Continues to be sedated with fentanyl Versed Tolerating tube feeds Urine output on the lower side Other Vitals acceptable Significant respiratory secretions Review of Systems Review of Systems: ROS unobtainable: Yes unobtainable due to endotracheal tube, unobtainable due to medical condition and unobtainable due to mental status Exam Narrative: General: Pt is sedated, intubated and on mechanical ventilation Lungs/Chest: Trachea central Coarse BS B/L, wheezing on the right, crackles on the left Cardiac: RRR. Normal S1 S2. No murmurs Circulation: Pedal pulses are intact and symmetrical. Abdomen: Decreased bowel sounds. Obese. Soft. NT. ND. Extremities: No clubbing, cyanosis or edema. Warm : Mcbride in place Neurologic: Unable to assess due to sedation. Moves all 4 extremities to painful stimuli. PERRL Objective Data Vital Signs Vital Signs: Vital Signs - 24 hr 03/24/24 10:00 03/24/24 10:00 03/24/24 10:00 Temperature Pulse Rate 82 82 82 Respiratory Rate 20 20 Blood Pressure 97/68 L Pulse Oximetry Oxygen Delivery Fraction of Inspired Oxygen 03/24/24 11:04 03/24/24 10:00 03/24/24 10:00 Temperature Pulse Rate 82 82 82 Respiratory Rate 20 Blood Pressure 97/68 L Pulse Oximetry 98 97 Oxygen Delivery Mechanical Ventilation Fraction of Inspired Oxygen 30 03/24/24 09:00 03/24/24 13:56 03/24/24 12:00 Temperature Pulse Rate 86 85 83 Respiratory Rate 20 Blood Pressure Pulse Oximetry 98 97 Oxygen Delivery Mechanical Ventilation Mechanical Ventilation Fraction of Inspired Oxygen 30 30 03/24/24 14:00 03/24/24 16:00 03/24/24 12:00 Temperature Pulse Rate 85 84 83 Respiratory Rate 20 20 20 Blood Pressure Pulse Oximetry Oxygen Delivery Fraction of Inspired Oxygen 03/24/24 14:00 03/24/24 16:00 03/24/24 12:00 Temperature Pulse Rate 85 84 83 Respiratory Rate 20 20 Blood Pressure 92/64 L Pulse Oximetry Oxygen Delivery Fraction of Inspired Oxygen 03/24/24 14:00 03/24/24 16:00 03/24/24 12:00 Temperature 37.1 C Pulse Rate 85 84 83 Respiratory Rate 20 Blood Pressure 91/69 L 100/72 92/64 L Pulse Oximetry 98 Oxygen Delivery Fraction of Inspired Oxygen 03/24/24 14:00 03/24/24 16:00 03/24/24 12:00 Temperature 37.2 C Pulse Rate 85 84 83 Respiratory Rate 20 20 Blood Pressure 91/69 L 100/72 Pulse Oximetry 97 97 Oxygen Delivery Fraction of Inspired Oxygen 03/24/24 14:00 03/24/24 16:00 03/24/24 12:00 Temperature Pulse Rate 85 85 Respiratory Rate Blood Pressure Pulse Oximetry 98 Oxygen Delivery Mechanical Ventilation Fraction of Inspired Oxygen 30 03/24/24 16:00 03/24/24 12:00 03/24/24 16:00 Temperature Pulse Rate Respiratory Rate Blood Pressure Pulse Oximetry 97 Oxygen Delivery Mechanical Ventilation Fraction of Inspired Oxygen 30 30 30 03/24/24 16:23 03/24/24 18:00 03/24/24 18:00 Temperature Pulse Rate 85 89 89 Respiratory Rate 20 20 Blood Pressure Pulse Oximetry 97 Oxygen Delivery Mechanical Ventilation Fraction of Inspired Oxygen 30 03/24/24 18:00 03/24/24 18:00 03/24/24 18:00 Temperature 37.4 C Pulse Rate 89 89 89 Respiratory Rate 20 Blood Pressure 101/77 101/77 Pulse Oximetry 98 Oxygen Delivery Fraction of Inspired Oxygen 03/24/24 20:00 03/24/24 20:00 03/24/24 20:00 Temperature 37.8 C H Pulse Rate 90 Respiratory Rate 22 H Blood Pressure 115/81 Pulse Oximetry 96 94 Oxygen Delivery Mechanical Ventilation Fraction of Inspired Oxygen 30 30 03/24/24 21:17 03/24/24 20:00 03/24/24 20:00 Temperature Pulse Rate 88 90 90 Respiratory Rate 22 H Blood Pressure 115/84 Pulse Oximetry 97 Oxygen Delivery Mechanical Ventilation Fraction of Inspired Oxygen 30 03/24/24 20:00 03/24/24 22:08 03/24/24 22:00 Temperature 37.4 C Pulse Rate 90 87 88 Respiratory Rate 22 H 23 H 24 H Blood Pressure 103/81 Pulse Oximetry 98 Oxygen Delivery Fraction of Inspired Oxygen 03/24/24 22:13 03/24/24 20:00 03/24/24 22:00 Temperature Pulse Rate 88 93 88 Respiratory Rate 24 H Blood Pressure Pulse Oximetry Oxygen Delivery Fraction of Inspired Oxygen 03/24/24 22:00 03/24/24 22:00 03/24/24 22:47 Temperature Pulse Rate 88 88 89 Respiratory Rate 20 Blood Pressure 103/81 Pulse Oximetry 97 Oxygen Delivery Mechanical Ventilation Fraction of Inspired Oxygen 30 03/24/24 23:02 03/24/24 23:02 03/25/24 00:36 Temperature 37.7 C H Pulse Rate 92 92 89 Respiratory Rate 20 20 29 H Blood Pressure 112/76 Pulse Oximetry 99 Oxygen Delivery Fraction of Inspired Oxygen 03/25/24 00:00 03/25/24 00:00 03/25/24 00:00 Temperature Pulse Rate 95 Respiratory Rate Blood Pressure Pulse Oximetry 97 Oxygen Delivery Mechanical Ventilation Fraction of Inspired Oxygen 30 30 03/25/24 00:00 03/25/24 02:00 03/25/24 00:00 Temperature Pulse Rate 93 88 93 Respiratory Rate 20 20 20 Blood Pressure Pulse Oximetry Oxygen Delivery Fraction of Inspired Oxygen 03/25/24 02:00 03/25/24 00:00 03/25/24 02:00 Temperature Pulse Rate 88 93 88 Respiratory Rate 20 Blood Pressure 117/80 108/78 Pulse Oximetry Oxygen Delivery Fraction of Inspired Oxygen 03/25/24 02:00 03/25/24 02:38 03/25/24 02:40 Temperature 38.5 C H Pulse Rate 88 89 Respiratory Rate Blood Pressure Pulse Oximetry 97 Oxygen Delivery Mechanical Ventilation Fraction of Inspired Oxygen 30 03/25/24 02:00 03/25/24 04:00 03/25/24 04:00 Temperature 38.6 C H Pulse Rate 88 Respiratory Rate 20 Blood Pressure 108/78 Pulse Oximetry 97 97 Oxygen Delivery Mechanical Ventilation Fraction of Inspired Oxygen 30 30 03/25/24 04:00 03/25/24 04:09 03/25/24 03:38 Temperature 38.7 C H 38.6 C H Pulse Rate 86 83 Respiratory Rate 20 Blood Pressure 105/78 Pulse Oximetry 97 Oxygen Delivery Fraction of Inspired Oxygen 03/25/24 05:38 03/25/24 06:00 03/25/24 06:00 Temperature 38.6 C H Pulse Rate 89 87 87 Respiratory Rate 20 Blood Pressure 119/83 Pulse Oximetry 97 97 Oxygen Delivery Mechanical Ventilation Fraction of Inspired Oxygen 30 03/25/24 04:00 03/25/24 06:00 03/25/24 04:00 Temperature Pulse Rate 83 87 83 Respiratory Rate 20 20 Blood Pressure 105/78 Pulse Oximetry Oxygen Delivery Fraction of Inspired Oxygen 03/25/24 06:00 03/25/24 04:00 03/25/24 06:00 Temperature Pulse Rate 87 83 87 Respiratory Rate 20 20 Blood Pressure 119/83 Pulse Oximetry Oxygen Delivery Fraction of Inspired Oxygen 03/25/24 07:30 Temperature Pulse Rate 84 Respiratory Rate Blood Pressure Pulse Oximetry 95 Oxygen Delivery Mechanical Ventilation Fraction of Inspired Oxygen 30 Intake/Output Intake/Output: Intake & Output 03/22/24 03/23/24 03/24/24 03/25/24 23:59 23:59 23:59 23:59 Intake Total 4657.0 4639.1 854.6 Output Total 1150 250 Balance 4657.0 3489.1 604.6 Meds/Results Medications: Active Medications Generic Name Dose Route Start Last Admin Trade Name Freq PRN Reason Stop Dose Admin Acetaminophen 650 mg 03/23/24 18:05 Acetaminophen 650 Mg Suppository RECTAL Q6H PRN Mild Pain (1-3) or Fever Acetaminophen 650 mg 03/25/24 01:37 03/25/24 02:38 Acetaminophen Elixir 325 Mg/10.15 Ml Udc FEED TUBE 650 mg Q6H PRN Administration Mild Pain (1-3) or Fever Albuterol/Ipratropium 3 ml 03/24/24 09:25 Ipratropium 0.5 Mg/Albuterol Sulfate 2.5 Mg Ampul.Neb 3 Ml INHALATION Q6HRT PRN Wheezing Bisacodyl 5 mg 03/23/24 21:45 Bisacodyl 5 Mg Tablet Ec PO DAILY PRN Constipation Dextrose 12.5 gm 03/24/24 08:15 Dextrose 50% 25 Gm/50 Ml Syringe IV PUSH PRN PRN Hypoglycemia Protocol Docusate Sodium 100 mg 03/24/24 09:00 03/24/24 08:27 Docusate Sodium 100 Mg Capsule PO Not Given BID LYNNE Glucagon 1 mg 03/24/24 08:15 Glucagon For Inj 1 Mg Vial IM PRN PRN Hypoglycemia Protocol Glucose 15 gm 03/24/24 08:15 Glucose Oral Gel 15 Gm Of Glucse In 37.5 Gm Tube PO PRN PRN Hypoglycemia Protocol Heparin Sodium (Porcine) 5,000 units 03/24/24 14:00 03/25/24 06:07 Heparin Sodium 5,000 Units/Ml Vial SUB-Q 5,000 units Q8HR LYNNE Administration Hydrocortisone Sodium Succinate 100 mg 03/24/24 09:35 03/24/24 10:11 Hydrocortisone Sodium Succinate 100 Mg/2 Ml Vial IV PUSH 100 mg QAM LYNNE Administration Vancomycin HCl 1,500 mg in 500 mls @ 250 mls/hr 03/24/24 06:00 03/25/24 06:29 Vancomycin 1,500 Mg/Ns 500 Ml IVPB 250 mls/hr Q12H LYNNE Administration Norepinephrine Bitartrate 8 mg in 250 mls @ 0 mls/hr 03/23/24 21:55 03/25/24 06:00 Levophed 8 Mg/D5w 250 Ml IV CONT 0 mcg/min .Q0M LYNNE 0 mls/hr Titration Protocol 0 MCG/MIN Midazolam HCl 100 mg in 100 mls @ 4 mls/hr 03/23/24 22:00 03/25/24 06:00 Versed 100 Mg/Ns 100 Ml IV CONT 4 mg/hr .Q25H LYNNE 4 mls/hr Titration Protocol 4 MG/HR Fentanyl Citrate 2,500 mcg in 250 mls @ 20 mls/hr 03/23/24 22:35 03/25/24 06:00 Fentanyl 2,500 Mcg/Ns 250 Ml IV CONT 200 mcg/hr .[id number] LYNNE 20 mls/hr Titration Protocol 200 MCG/HR Piperacillin/Tazobactam/Dextrose 3.375 gm in 50 mls @ 100 mls/hr 03/24/24 06 :55 03/25/24 06:34 Zosyn 3.375 Gm/Ns 50 Ml IVPB Infused Q6HR LYNNE Infusion Doxycycline Hyclate 100 mg in 100 mls @ 100 mls/hr 03/24/24 09:00 03/24/24 21:44 Vibramycin 100 Mg/Ns 100 Ml IVPB Infused Q12H LYNNE Infusion Dextrose 1,000 mls @ 100 mls/hr 03/24/24 08:15 Dextrose 5% 1,000 Ml IVPB PRN PRN Hypoglycemia Protocol Insulin Aspart 3 - 6 units 03/24/24 08:15 03/25/24 05:00 Insulin Aspart (*Bkc) 100 Units/Ml SUB-Q Not Given Q4HR LYNNE Protocol Multi-Ingred Cream/Lotion/Oil/Oint 1 applic 03/24/24 09:00 03/24/24 20:47 Mineral Oil/White Petrolatum Ointment EACH EYE 1 applic Q12HR LYNNE Administration Pantoprazole Sodium 40 mg 03/24/24 09:00 03/24/24 08:41 Pantoprazole Sodium Iv 40 Mg Vial IV PUSH 40 mg QAM LYNNE Administration Sodium Bicarbonate 650 mg 03/24/24 08:15 03/24/24 17:42 Sodium Bicarbonate Tab 650 Mg Tablet FEED TUBE 650 mg BID LYNNE Administration Sodium Chloride 10 ml 03/24/24 14:00 03/25/24 06:07 Central Line Flush IV PUSH 10 ml Q8HR LYNNE Administration Sodium Chloride 20 ml 03/24/24 11:21 Central Line Flush IV PUSH PRN PRN after blood draws Radiology Results: ITS Impressions Abdomen X-Ray 03/23/24 17:28 IMPRESSION: 1. Nasogastric tube tip in the stomach. Chest CTA 03/23/24 19:45 IMPRESSION: 1. Pneumonia in multiple areas with the largest in the left lower lobe. 2. No pulmonary embolism. 3. Nodule in the right upper lobe. 6 months follow-up CT is advised. Chest X-Ray 03/24/24 06:04 Impression: Moderate left pleural effusion with probable left lower lobe and partial left midlung atelectatic change. Correlate for underlying pneumonia. Support tubes, as above. Labs Labs: Laboratory Results - last 24 hr 03/24/24 03/24/24 03/24/24 12:57 17:32 20:09 WBC RBC Hgb Hct MCV MCH MCHC RDW Plt Count MPV Immature Gran % (Auto) Neut % (Auto) Lymph % (Auto) [place] % (Auto) Eos % (Auto) Baso % (Auto) Lymph # (Auto) [place] # (Auto) Eos # (Auto) Baso # (Auto) Abs Immat Gran (auto) Absolute Neuts (auto) Absolute Nucleated RBC Nucleated RBC % Platelet Estimate Ovalocytes Angélica Cells Schistocytes Puncture Site ABG pH ABG pCO2 ABG pO2 ABG PO2/FiO2 Ratio ABG HCO3 ABG O2 Saturation ABG O2 Content ABG Base Excess A-a Gradient Oxyhemoglobin Carboxyhemoglobin Methemoglobin Reduced Hemoglobin Total Hemoglobin O2 Delivery Device O2 Liters/Min Minute Volume Vent Rate Vent Mode FiO2 Tidal Volume PEEP Peak Inspir Pressure Pressure Support Sodium Potassium Chloride Carbon Dioxide Anion Gap BUN Creatinine Estim Creat Clear Calc Estimated GFR Glucose POC Capillary Glucose 151 H 155 H 182 H Calcium Total Bilirubin AST ALT Alkaline Phosphatase Total Protein Albumin Vancomycin Trough 03/24/24 03/25/24 03/25/24 23:37 04:26 05:20 WBC 9.1 RBC 3.31 L Hgb 10.5 L Hct 31.7 L MCV 95.8 MCH 31.7 MCHC 33.1 RDW 13.1 Plt Count 201 MPV 10.9 H Immature Gran % (Auto) 5.6 H Neut % (Auto) 83.7 H Lymph % (Auto) 6.1 L [place] % (Auto) 4.4 Eos % (Auto) 0.0 Baso % (Auto) 0.2 Lymph # (Auto) 0.55 L [place] # (Auto) 0.4 Eos # (Auto) 0.0 Baso # (Auto) 0.0 Abs Immat Gran (auto) 0.51 H Absolute Neuts (auto) 7.6 H Absolute Nucleated RBC 0.000 Nucleated RBC % 0.0 Platelet Estimate Adequate Ovalocytes 1+ Angélica Cells 1+ Schistocytes None seen Puncture Site Left radial ABG pH 7.373 ABG pCO2 25.9 L ABG pO2 87.8 ABG PO2/FiO2 Ratio 2.93 ABG HCO3 14.7 L ABG O2 Saturation 96.7 ABG O2 Content 15.5 L ABG Base Excess -9.0 A-a Gradient 95.7 Oxyhemoglobin 96.3 Carboxyhemoglobin 0.5 Methemoglobin 0.3 Reduced Hemoglobin 2.9 Total Hemoglobin 11.4 L O2 Delivery Device Ventilator O2 Liters/Min Not Reportable Minute Volume Not Reportable Vent Rate 20 Vent Mode Cmv FiO2 30 Tidal Volume 350 PEEP 8 Peak Inspir Pressure Not Reportable Pressure Support Not Reportable Sodium 145 Potassium 3.3 L Chloride 119 H Carbon Dioxide 20 L Anion Gap 6 BUN 35 H D Creatinine 0.90 Estim Creat Clear Calc 76 Estimated GFR > 60 Glucose 179 H POC Capillary Glucose 173 H Calcium 8.1 L Total Bilirubin 0.7 AST 58 H ALT 34 Alkaline Phosphatase 55 Total Protein 6.0 L Albumin 2.6 L Vancomycin Trough 15.9 Quality VTE Prophylaxis VTE prophylaxis: pharmacologic ordered
[2024-03-25 09:02] LABS: Glucose Point of Care 184 mg/dl (65-105)
[2024-03-25] MEDS: FUROSEMIDE INJ 40 MG/4 ML VIAL IV PUSH (09:02)
[2024-03-25] MEDS: SODIUM BICARBONATE TAB 650 MG TABLET FEED TUBE ×2 (09:02→17:30)
[2024-03-25] MEDS: POTASSIUM BICARBONATE 25 MEQ TABEF 50 MEQ FEED TUBE (09:02)
[2024-03-25] MEDS: PANTOPRAZOLE SODIUM IV 40 MG VIAL IV PUSH (09:02)
[2024-03-25] MEDS: HYDROCORTISONE SODIUM SUCCINATE 100 MG/2 ML VIAL IV PUSH (09:02)
[2024-03-25] MEDS: DOXYCYCLINE 100 MG/NS 100 ML 100 MG/100 ML BAG IVPB ×2 (09:03→20:27)
[2024-03-25] MEDS: MINERAL OIL/WHITE PETROLATUM OINTMENT 1 APPLIC EACH EYE ×2 (09:03→20:27)
--- NOTE | 2024-03-25 11:22 | PCFNICU ---
ICU Rounding Note: Pt current nutrition is Vital AF 1.2 @ goal rate 40 ml/h to provide 1056 kcal, 66 g protein (~ 56% estimated needs), 714 ml free water. Flush 150 ml q 4 hours. Nutrition recommendation: No new nutrition recommendations. Continue current nutrition care plan and orders. May need to add protein modular to meet estimated needs if continuing on vent. Last recorded weight is 98.86 kg. Bowel Motility: 0 BMs so far Labs Reviewed: Hgb 10.5, Hct 31.7, Alb 2.6, K+ 3.3, BUN 35, Glu 179 Meds Noted: Fentanyl, versed, protonix, zosyn, insulin Skin: No skin issues Additional Notes: Vent day 2. Flushes were increased. Will likely need to increase goal rate and add protein modulars to meet EER and estimated protein needs if vent continuing. Following daily in ICU rounds. Will monitor weight, labs, skin, diet orders, meds every Saturday and Saturday. .
[2024-03-25] MEDS: ACETAMINOPHEN 650 MG SUPPOSITORY RECTAL (12:20)
[2024-03-25 12:34] LABS: Glucose Point of Care 186 mg/dl (65-105)
[2024-03-25 17:33] LABS: Glucose Point of Care 199 mg/dl (65-105)
[2024-03-25] MEDS: ALTEPLASE 2 MG VIAL (CATHFLO) IV PUSH (17:54)
[2024-03-25 22:33] LABS: Glucose Point of Care 159 mg/dl (65-105)
[2024-03-26] VITALS (37 sets, daily range): BP systolic 114–179; BP diastolic 70–96; PULSE 74–99; RESP 15–31; TEMP 38–38.8; O2SAT 95–100
[2024-03-26] MEDS: ACETAMINOPHEN ELIXIR 325 MG/10.15 ML UDC 650 MG FEED TUBE ×5 (00:33→18:51)
[2024-03-26] MEDS: PIPERACILLN/TAZ 3.375GM/NS50ML 3.375 GM/50 ML BAG IVPB ×2 (00:34→05:37)
[2024-03-26 00:43] LABS: Glucose Point of Care 171 mg/dl (65-105)
[2024-03-26] MEDS: FENTANYL 2,500MCG/NS250ML(*CRX 2,500 MCG/250 ML BAG IV CONT (02:41)
[2024-03-26 05:16] LABS: Alveolar/Arterial O2 Gradient 97.4 mmHg; Base Excess ABG -3.7 mEq/l (+/-2.0); Carboxyhemoglobin 0.8 % THb (0-2.0); Fractional Inspired Oxygen 30 %; Methemoglobin ABG 0.3 %THb (0-1.5); Modified Allen's Test Pass; Oxygen Content ABG 14.8 %vol (16.0-22.0); Oxyhemoglobin 95.2 % THb (90.0-100.0); PCO2 ABG 31.8 mmHg (35.0-45.0); PO2 ABG 79.1 mmHg (80.0-100.0); PO2 FiO2 Ratio Arterial Blood 2.64 %; Reduced Hemoglobin 3.7 %THb (0-5.0); Site Drawn LEFT RADIAL; pH ABG 7.417 (7.350-7.450)
[2024-03-26 05:17] LABS: Arterial Blood Gas PEEP 8 cmH2O; Arterial Blood Gas Tidal Volume 350 ml; Arterial Blood Gas Vent Mode CMV; Arterial Blood Gas Ventilator rate 20 /MIN; Device VENTILATOR
[2024-03-26 05:24] LABS: Basophils Percent Auto 0.2 % (0.2-1.2); Hematocrit 30.7 % (37.0-47.0); Hemoglobin 10.3 g/dL (12.0-15.0); Immature Granulocyte Absolute 0.17 K/mm3 (0.00-0.031); Lymphocytes Absolute Auto 1.49 K/mm3 (0.9-3.2); Lymphocytes Percent Auto 17.8 % (18.3-44.2); Mean Corpuscular HGB Conc 33.6 g/dl (32-36); Mean Corpuscular Hemoglobin 31.9 pg (26-34); Mean Platelet Volume 10.8 fl (7.4-10.4); Monocytes Absolute Auto 0.4 K/mm3 (0.1-0.6); Monocytes Percent Auto 4.7 % (2.6-8.5); Neutrophils Absolute Auto 6.3 K/mm3 (1.3-6.7); Neutrophils Percent Auto 75.3 % (45.5-73.1); Platelet Count Result 220 k/mm3 (150-375); Red Blood Count 3.23 M/mm3 (4.2-5.4); Red Cell Distribution Width 13.3 % (11.5-14.5); White Blood Count 8.4 K/mm3 (4.5-10.0)
[2024-03-26 05:33] LABS: Alanine Aminotransferase 54 U/L (6-35); Albumin Level 2.5 g/dL (3.5-5.1); Alkaline Phosphatase 51 U/L (38-126); Anion Gap 4 mmol/L (4-12); Aspartate Amino Transferase 61 U/L (14-36); Bilirubin,Total 0.8 mg/dL (0.2-1.3); Blood Urea Nitrogen 37 mg/dL (7-17); Calcium 8.4 mg/dL (8.4-10.2); Carbon Dioxide 23 mmol/L (22-30); Chloride 117 mmol/L (98-107); Estimated CRCL calculation 85 ml/min; Estimated Glomerular Filt Rate > 60; Glucose 139 mg/dL (65-110); Magnesium 2.1 mg/dL (1.6-2.3); Potassium 3.3 mmol/L (3.4-5.0); Sodium 144 mmol/L (137-145)
[2024-03-26] MEDS: HEPARIN SODIUM 5,000 UNITS/ML VIAL 5000 UNITS SUB-Q ×3 (05:37→21:08)
[2024-03-26] MEDS: CENTRAL LINE FLUSH 10 ML IV PUSH ×3 (05:41→21:09)
[2024-03-26 05:44] LABS: Anisocytosis 1+; Platelet Estimate Adequate (Adequate); Schistocytes None Seen
[2024-03-26 06:01] LABS: Vancomycin Trough 18.4 ug/mL (10.0-20.0)
[2024-03-26] MEDS: VANCOMYCIN 1,500 MG/NS 500 ML 1,500 MG/500 ML BAG 250 MG IVPB ×2 (06:30→17:18)
[2024-03-26] MEDS: PANTOPRAZOLE SODIUM IV 40 MG VIAL IV PUSH (08:34)
[2024-03-26] MEDS: HYDROCORTISONE SODIUM SUCCINATE 100 MG/2 ML VIAL 50 MG IV PUSH (08:34)
[2024-03-26] MEDS: MINERAL OIL/WHITE PETROLATUM OINTMENT 1 APPLIC EACH EYE ×2 (08:34→21:08)
[2024-03-26] MEDS: POTASSIUM BICARBONATE 25 MEQ TABEF 50 MEQ PO (08:34)
[2024-03-26] MEDS: FUROSEMIDE INJ 40 MG/4 ML VIAL IV PUSH (08:34)
[2024-03-26] MEDS: DOXYCYCLINE 100 MG/NS 100 ML 100 MG/100 ML BAG IVPB ×2 (08:38→21:09)
[2024-03-26] MEDS: cefTRIAXone 2 GM/NS 100 ML 2 GM/100 ML BAG IVPB (08:39)
--- NOTE | 2024-03-26 08:45 | WPDINTPN ---
Progress Note: A&P Assessment and Plan (1) Acute respiratory failure: Code(s): J96.00 - Acute respiratory failure, unspecified whether with hypoxia or hypercapnia Status: Acute Assessment and Plan: Acute respiratory failure likely secondary to community-acquired pneumonia with possible component of congestive heart failure Chest CTA IMPRESSION: 1. Pneumonia in multiple areas with the largest in the leftlower lobe. 2. No pulmonary embolism. 3. Nodule in the right upper lobe. 6 months follow-up CT is advised. Patient now intubated and sedated Ventilator settings reviewed. I will decrease PEEP to 8 Pending urine Legionella urine pneumococcal antigen Bronchodilators Will do sedation holiday and evaluate for weaning trial (2) Septic shock: Code(s): A41.9 - Sepsis, unspecified organism; R65.21 - Severe sepsis with septic shock Status: Acute Assessment and Plan: Post intubation patient became hypotensive and was started on Levophed Levophed has been weaned off this morning Treatment of pneumonia as above Will hold further IV fluids as patient is seated close to 5 L of IV fluids. And IV Lasix Patient is chronically on low-dose prednisone which is marked as p.r.n. on her medication list. I do not know how frequently she takes it. Continue hydrocortisone Blood cultures are growing MSSA and strep pneumo Sputum cultures growing Staph aureus and susceptibilities are pending Continue vancomycin, doxycycline. Zosyn will be changed to Rocephin. If sputum is also MSSA Will discontinue vancomycin (3) Community acquired pneumonia: Code(s): J18.9 - Pneumonia, unspecified organism Status: Acute Assessment and Plan: See above (4) Congestive heart failure: Code(s): I50.9 - Heart failure, unspecified Status: Acute Assessment and Plan: Patient has elevated BNP Hold further fluids IV Lasix Echo Summary 1. Technically difficult study with limited views. 2. Left ventricular chamber dimension is normal. 3. Left ventricular systolic function is normal, estimated at 50-55%. 4. The left ventricular diastolic function is grade I diastolic dysfunction. 5. Right ventricular systolic function is normal. 6. There is mild tricuspid valve regurgitation. (5) Bacteremia: Code(s): R78.81 - Bacteremia Status: Acute Assessment and Plan: See above Plan DVT prophylaxis -SC heparin Stress ulcer prophylaxis -Protonix Nutrition -continue Tube Feeds Code Status - Full Code I spoke to and updated patient's at bedside answered all his questions Total Critical Care Time - 32 minutes Due to a high probability of clinically significant, life threatening deterioration, the patient required my highest level of preparedness to intervene emergently and I personally spent this critical care time directly and personally managing the patient. This critical care time included obtaining a history; examining the patient; pulse oximetry; ordering and review of studies; arranging urgent treatment with development of a management plan; evaluation of patient's response to treatment; frequent reassessment; and discussions with other providers. It was exclusive of separately billable procedures and treating other patients and teaching time. Please see Assessment and Plan section and the rest of the note for further information on patient assessment and treatment Subjective Date/time seen: 03/26/24 Overnight events reviewed. febrile Continues to be on mechanical ventilation 30% FiO2 and 8 of PEEP Off vasopressors Continues to be sedated with Versed and fentanyl Other Vitals acceptable Tolerating tube feeds Wakes up on stimulation and nodes are head appropriately. Regards examiner Review of Systems Review of Systems: ROS unobtainable: Yes unobtainable due to endotracheal tube, unobtainable due to medical condition and unobtainable due to mental status Exam Narrative: General: Pt is sedated, intubated and on mechanical ventilation Lungs/Chest: Trachea central Coarse BS B/L, wheezing on the right, crackles on the left Cardiac: RRR. Normal S1 S2. No murmurs Circulation: Pedal pulses are intact and symmetrical. Abdomen: Decreased bowel sounds. Obese. Soft. NT. ND. Extremities: No clubbing, cyanosis or edema. Warm : Mcbride in place Neurologic: Unable to assess fully due to sedation. Moves all 4 extremities Wakes up on stimulation and nodes are head appropriately. Regards examiner. PERRL Objective Data Vital Signs Vital Signs: Vital Signs - 24 hr 03/25/24 09:03 03/25/24 10:01 03/25/24 10:00 Temperature 38.8 C H 38.8 C H Pulse Rate 90 85 Respiratory Rate 23 H Blood Pressure 119/76 Pulse Oximetry 97 97 Oxygen Delivery Mechanical Ventilation Fraction of Inspired Oxygen 30 03/25/24 10:03 03/25/24 09:00 03/25/24 10:00 Temperature 38.8 C H Pulse Rate 91 89 Respiratory Rate 23 H 23 H Blood Pressure Pulse Oximetry Oxygen Delivery Fraction of Inspired Oxygen 03/25/24 09:00 03/25/24 10:00 03/25/24 10:00 Temperature Pulse Rate 91 89 89 Respiratory Rate 3 L 23 H Blood Pressure 111/77 Pulse Oximetry Oxygen Delivery Fraction of Inspired Oxygen 03/25/24 10:00 03/25/24 12:20 03/25/24 12:02 Temperature 39.1 C H Pulse Rate 89 87 Respiratory Rate 23 H Blood Pressure Pulse Oximetry Oxygen Delivery Fraction of Inspired Oxygen 03/25/24 12:02 03/25/24 12:02 03/25/24 12:00 Temperature 39.0 C H Pulse Rate 87 87 87 Respiratory Rate 23 H 23 H Blood Pressure 118/81 118/81 Pulse Oximetry 97 Oxygen Delivery Fraction of Inspired Oxygen 03/25/24 12:00 03/25/24 12:00 03/25/24 12:00 Temperature Pulse Rate 87 86 Respiratory Rate 23 H Blood Pressure Pulse Oximetry 97 Oxygen Delivery Mechanical Ventilation Fraction of Inspired Oxygen 30 30 03/25/24 12:56 03/25/24 13:15 03/25/24 15:46 Temperature Pulse Rate 85 89 86 Respiratory Rate Blood Pressure 120/80 Pulse Oximetry 97 97 Oxygen Delivery Mechanical Ventilation Mechanical Ventilation Fraction of Inspired Oxygen 30 30 03/25/24 13:20 03/25/24 16:00 03/25/24 16:00 Temperature 39.0 C H Pulse Rate 94 Respiratory Rate 29 H Blood Pressure Pulse Oximetry 97 Oxygen Delivery Mechanical Ventilation Fraction of Inspired Oxygen 30 30 03/25/24 14:00 03/25/24 16:00 03/25/24 14:00 Temperature 39.0 C H Pulse Rate 83 90 83 Respiratory Rate 24 H Blood Pressure 123/83 Pulse Oximetry 98 Oxygen Delivery Fraction of Inspired Oxygen 03/25/24 16:00 03/25/24 14:00 03/25/24 16:00 Temperature 39.1 C H Pulse Rate 94 83 94 Respiratory Rate 29 H 24 H 29 H Blood Pressure 129/88 Pulse Oximetry 97 Oxygen Delivery Fraction of Inspired Oxygen 03/25/24 18:02 03/25/24 18:02 03/25/24 14:00 Temperature Pulse Rate 80 80 83 Respiratory Rate 25 H 25 H 24 H Blood Pressure Pulse Oximetry Oxygen Delivery Fraction of Inspired Oxygen 03/25/24 16:00 03/25/24 18:00 03/25/24 18:00 Temperature 38.7 C H Pulse Rate 94 80 80 Respiratory Rate 29 H 25 H Blood Pressure 121/80 Pulse Oximetry 97 Oxygen Delivery Fraction of Inspired Oxygen 03/25/24 19:12 03/25/24 19:12 03/25/24 20:26 Temperature 38.6 C H Pulse Rate 83 83 Respiratory Rate 30 H 30 H Blood Pressure Pulse Oximetry Oxygen Delivery Fraction of Inspired Oxygen 03/25/24 20:00 03/25/24 20:00 03/25/24 21:26 Temperature 38.7 C H Pulse Rate 83 Respiratory Rate 25 H Blood Pressure Pulse Oximetry 97 Oxygen Delivery Mechanical Ventilation Fraction of Inspired Oxygen 30 30 03/25/24 20:00 03/25/24 21:00 03/25/24 22:00 Temperature Pulse Rate 78 85 84 Respiratory Rate 24 H 27 H 24 H Blood Pressure Pulse Oximetry Oxygen Delivery Fraction of Inspired Oxygen 03/25/24 20:00 03/25/24 21:00 03/25/24 22:00 Temperature Pulse Rate 83 86 84 Respiratory Rate 24 H 27 H 23 H Blood Pressure Pulse Oximetry Oxygen Delivery Fraction of Inspired Oxygen 03/25/24 20:00 03/25/24 22:00 03/25/24 20:00 Temperature 38.6 C H 38.7 C H Pulse Rate 81 76 75 Respiratory Rate 27 H 23 H Blood Pressure 127/83 115/77 Pulse Oximetry 99 98 Oxygen Delivery Fraction of Inspired Oxygen 03/25/24 22:00 03/25/24 23:25 03/25/24 23:31 Temperature Pulse Rate 78 88 Respiratory Rate 23 H Blood Pressure Pulse Oximetry Oxygen Delivery Fraction of Inspired Oxygen 30 03/25/24 23:32 03/26/24 00:33 03/26/24 00:01 Temperature 38.6 C H Pulse Rate 84 85 Respiratory Rate 22 H 25 H Blood Pressure Pulse Oximetry 98 Oxygen Delivery Mechanical Ventilation Fraction of Inspired Oxygen 30 03/26/24 00:30 03/26/24 00:01 03/26/24 00:00 Temperature 38.6 C H Pulse Rate 89 85 88 Respiratory Rate 26 H 24 H 25 H Blood Pressure 118/79 Pulse Oximetry 98 Oxygen Delivery Fraction of Inspired Oxygen 03/26/24 00:00 03/26/24 02:00 03/26/24 02:00 Temperature 38.3 C H Pulse Rate 88 75 77 Respiratory Rate 21 H Blood Pressure 116/77 Pulse Oximetry 98 Oxygen Delivery Fraction of Inspired Oxygen 03/26/24 01:33 03/25/24 20:32 03/25/24 23:00 Temperature 38.4 C H Pulse Rate 77 77 Respiratory Rate Blood Pressure Pulse Oximetry 98 98 Oxygen Delivery Mechanical Ventilation Mechanical Ventilation Fraction of Inspired Oxygen 30 30 03/26/24 02:00 03/26/24 02:41 03/26/24 02:41 Temperature Pulse Rate 76 80 80 Respiratory Rate 25 H 25 H Blood Pressure Pulse Oximetry 98 Oxygen Delivery Mechanical Ventilation Fraction of Inspired Oxygen 30 03/26/24 04:00 03/26/24 04:00 03/26/24 04:00 Temperature 38.1 C H Pulse Rate 78 77 Respiratory Rate 22 H 22 H Blood Pressure 115/83 Pulse Oximetry 98 98 Oxygen Delivery Mechanical Ventilation Fraction of Inspired Oxygen 30 30 03/26/24 02:00 03/26/24 04:00 03/26/24 04:00 Temperature Pulse Rate 79 77 77 Respiratory Rate 22 H 21 H 22 H Blood Pressure Pulse Oximetry Oxygen Delivery Fraction of Inspired Oxygen 03/26/24 04:00 03/26/24 05:27 03/26/24 05:37 Temperature 38.1 C H Pulse Rate 80 77 Respiratory Rate Blood Pressure Pulse Oximetry 100 Oxygen Delivery Mechanical Ventilation Fraction of Inspired Oxygen 30 03/26/24 06:00 03/26/24 06:00 03/26/24 05:00 Temperature 38.1 C H Pulse Rate 84 84 80 Respiratory Rate 24 H 22 H Blood Pressure 114/80 Pulse Oximetry 96 Oxygen Delivery Fraction of Inspired Oxygen 03/26/24 06:00 03/26/24 06:00 03/26/24 06:37 Temperature 38.2 C H Pulse Rate 84 84 Respiratory Rate 24 H 24 H Blood Pressure Pulse Oximetry Oxygen Delivery Fraction of Inspired Oxygen 03/26/24 08:22 Temperature Pulse Rate 89 Respiratory Rate Blood Pressure Pulse Oximetry 97 Oxygen Delivery Mechanical Ventilation Fraction of Inspired Oxygen 30 Intake/Output Intake/Output: Intake & Output 03/23/24 03/24/24 03/25/24 03/26/24 23:59 23:59 23:59 23:59 Intake Total 4657.0 4639.1 2997.7 1082.2 Output Total 1150 1950 550 Balance 4657.0 3489.1 1047.7 532.2 Meds/Results Medications: Active Medications Generic Name Dose Route Start Last Admin Trade Name Freq PRN Reason Stop Dose Admin Acetaminophen 650 mg 03/23/24 18:05 03/25/24 12:20 Acetaminophen 650 Mg Suppository RECTAL 650 mg Q6H PRN Administration Mild Pain (1-3) or Fever Acetaminophen 650 mg 03/25/24 23:38 03/26/24 05:37 Acetaminophen Elixir 325 Mg/10.15 Ml Udc FEED TUBE 650 mg Q4HR PRN Administration Mild Pain (1-3) or Fever Albuterol/Ipratropium 3 ml 03/24/24 09:25 Ipratropium 0.5 Mg/Albuterol Sulfate 2.5 Mg Ampul.Neb 3 Ml INHALATION Q6HRT PRN Wheezing Alteplase, Recombinant 2 mg 03/25/24 17:41 03/25/24 17:54 Alteplase 2 Mg Vial (Cathflo) IV PUSH 2 mg ONCE PRN Administration Line Occlusion Bisacodyl 5 mg 03/23/24 21:45 Bisacodyl 5 Mg Tablet Ec PO DAILY PRN Constipation Dextrose 12.5 gm 03/24/24 08:15 Dextrose 50% 25 Gm/50 Ml Syringe IV PUSH PRN PRN Hypoglycemia Protocol Docusate Sodium 100 mg 03/24/24 09:00 03/24/24 08:27 Docusate Sodium 100 Mg Capsule PO Not Given BID LYNNE Glucagon 1 mg 03/24/24 08:15 Glucagon For Inj 1 Mg Vial IM PRN PRN Hypoglycemia Protocol Glucose 15 gm 03/24/24 08:15 Glucose Oral Gel 15 Gm Of Glucse In 37.5 Gm Tube PO PRN PRN Hypoglycemia Protocol Heparin Sodium (Porcine) 5,000 units 03/24/24 14:00 03/26/24 05:37 Heparin Sodium 5,000 Units/Ml Vial SUB-Q 5,000 units Q8HR LYNNE Administration Hydrocortisone Sodium Succinate 50 mg 03/26/24 09:00 03/26/24 08:34 Hydrocortisone Sodium Succinate 100 Mg/2 Ml Vial IV PUSH 50 mg QAM LYNNE Administration Vancomycin HCl 1,500 mg in 500 mls @ 250 mls/hr 03/24/24 06:00 03/26/24 06:30 Vancomycin 1,500 Mg/Ns 500 Ml IVPB 250 mls/hr Q12H LYNNE Administration Midazolam HCl 100 mg in 100 mls @ 3 mls/hr 03/23/24 22:00 03/26/24 06:00 Versed 100 Mg/Ns 100 Ml IV CONT 2 mg/hr .[id number] LYNNE 2 mls/hr Titration Protocol 3 MG/HR Fentanyl Citrate 2,500 mcg in 250 mls @ 2.5 mls/hr 03/23/24 22:35 03/26/24 06:00 Fentanyl 2,500 Mcg/Ns 250 Ml IV CONT 50 mcg/hr .Q72H LYNNE 5 mls/hr Titration Protocol 25 MCG/HR Doxycycline Hyclate 100 mg in 100 mls @ 100 mls/hr 03/24/24 09:00 03/26/24 08:38 Vibramycin 100 Mg/Ns 100 Ml IVPB 100 mls/hr Q12H LYNNE Administration Dextrose 1,000 mls @ 100 mls/hr 03/24/24 08:15 Dextrose 5% 1,000 Ml IVPB PRN PRN Hypoglycemia Protocol Ceftriaxone Sodium 2 gm in 100 mls @ 200 mls/hr 03/26/24 08:00 03/26/24 08:39 Rocephin 2 Gm/Ns 100 Ml IVPB 200 mls/hr Q24H LYNNE Administration Insulin Aspart 3 - 6 units 03/24/24 08:15 03/26/24 08:31 Insulin Aspart (*Bkc) 100 Units/Ml SUB-Q Not Given Q4HR LYNNE Protocol Multi-Ingred Cream/Lotion/Oil/Oint 1 applic 03/24/24 09:00 03/26/24 08:34 Mineral Oil/White Petrolatum Ointment EACH EYE 1 applic Q12HR LYNNE Administration Pantoprazole Sodium 40 mg 03/24/24 09:00 03/26/24 08:34 Pantoprazole Sodium Iv 40 Mg Vial IV PUSH 40 mg QAM LYNNE Administration Sodium Chloride 10 ml 03/24/24 14:00 03/26/24 05:41 Central Line Flush IV PUSH 10 ml Q8HR LYNNE Administration Sodium Chloride 20 ml 03/24/24 11:21 Central Line Flush IV PUSH PRN PRN after blood draws Radiology Results: ITS Impressions Abdomen X-Ray 03/23/24 17:28 IMPRESSION: 1. Nasogastric tube tip in the stomach. Chest CTA 03/23/24 19:45 IMPRESSION: 1. Pneumonia in multiple areas with the largest in the left lower lobe. 2. No pulmonary embolism. 3. Nodule in the right upper lobe. 6 months follow-up CT is advised. Chest X-Ray 03/26/24 07:14 Impression: Small left pleural effusion with probable left lower lobe/left basilar atelectasis. Correlate clinically for pneumonia. Minimal central congestive change. Support tubes, as above. Labs Labs: Laboratory Results - last 24 hr 03/25/24 03/25/24 03/25/24 08:56 12:20 17:31 WBC RBC Hgb Hct MCV MCH MCHC RDW Plt Count MPV Immature Gran % (Auto) Neut % (Auto) Lymph % (Auto) Harvey % (Auto) Eos % (Auto) Baso % (Auto) Lymph # (Auto) Harvey # (Auto) Eos # (Auto) Baso # (Auto) Abs Immat Gran (auto) Absolute Neuts (auto) Absolute Nucleated RBC Nucleated RBC % Platelet Estimate Anisocytosis Schistocytes Puncture Site ABG pH ABG pCO2 ABG pO2 ABG PO2/FiO2 Ratio ABG HCO3 ABG O2 Saturation ABG O2 Content ABG Base Excess A-a Gradient Oxyhemoglobin Carboxyhemoglobin Methemoglobin Reduced Hemoglobin Total Hemoglobin O2 Delivery Device O2 Liters/Min Minute Volume Vent Rate Vent Mode FiO2 Tidal Volume PEEP Peak Inspir Pressure Pressure Support Sodium Potassium Chloride Carbon Dioxide Anion Gap BUN Creatinine Estim Creat Clear Calc Estimated GFR Glucose POC Capillary Glucose 184 H 186 H 199 H Calcium Magnesium Total Bilirubin AST ALT Alkaline Phosphatase Total Protein Albumin Vancomycin Trough 03/25/24 03/26/24 03/26/24 22:19 00:38 05:02 WBC RBC Hgb Hct MCV MCH MCHC RDW Plt Count MPV Immature Gran % (Auto) Neut % (Auto) Lymph % (Auto) Harvey % (Auto) Eos % (Auto) Baso % (Auto) Lymph # (Auto) Harvey # (Auto) Eos # (Auto) Baso # (Auto) Abs Immat Gran (auto) Absolute Neuts (auto) Absolute Nucleated RBC Nucleated RBC % Platelet Estimate Anisocytosis Schistocytes Puncture Site Left radial ABG pH 7.417 ABG pCO2 31.8 L ABG pO2 79.1 L ABG PO2/FiO2 Ratio 2.64 ABG HCO3 20.0 L ABG O2 Saturation 96.0 ABG O2 Content 14.8 L ABG Base Excess -3.7 A-a Gradient 97.4 Oxyhemoglobin 95.2 Carboxyhemoglobin 0.8 Methemoglobin 0.3 Reduced Hemoglobin 3.7 Total Hemoglobin 11.0 L O2 Delivery Device Ventilator O2 Liters/Min Not Reportable Minute Volume Not Reportable Vent Rate 20 Vent Mode Cmv FiO2 30 Tidal Volume 350 PEEP 8 Peak Inspir Pressure Not Reportable Pressure Support Not Reportable Sodium Potassium Chloride Carbon Dioxide Anion Gap BUN Creatinine Estim Creat Clear Calc Estimated GFR Glucose POC Capillary Glucose 159 H 171 H Calcium Magnesium Total Bilirubin AST ALT Alkaline Phosphatase Total Protein Albumin Vancomycin Trough 03/26/24 05:17 WBC 8.4 RBC 3.23 L Hgb 10.3 L Hct 30.7 L MCV 95.0 MCH 31.9 MCHC 33.6 RDW 13.3 Plt Count 220 MPV 10.8 H Immature Gran % (Auto) 2.0 H Neut % (Auto) 75.3 H Lymph % (Auto) 17.8 L Harvey % (Auto) 4.7 Eos % (Auto) 0.0 Baso % (Auto) 0.2 Lymph # (Auto) 1.49 Harvey # (Auto) 0.4 Eos # (Auto) 0.0 Baso # (Auto) 0.0 Abs Immat Gran (auto) 0.17 H Absolute Neuts (auto) 6.3 Absolute Nucleated RBC 0.000 Nucleated RBC % 0.0 Platelet Estimate Adequate Anisocytosis 1+ Schistocytes None seen Puncture Site ABG pH ABG pCO2 ABG pO2 ABG PO2/FiO2 Ratio ABG HCO3 ABG O2 Saturation ABG O2 Content ABG Base Excess A-a Gradient Oxyhemoglobin Carboxyhemoglobin Methemoglobin Reduced Hemoglobin Total Hemoglobin O2 Delivery Device O2 Liters/Min Minute Volume Vent Rate Vent Mode FiO2 Tidal Volume PEEP Peak Inspir Pressure Pressure Support Sodium 144 Potassium 3.3 L Chloride 117 H Carbon Dioxide 23 Anion Gap 4 BUN 37 H Creatinine 0.80 Estim Creat Clear Calc 85 Estimated GFR > 60 Glucose 139 H POC Capillary Glucose Calcium 8.4 Magnesium 2.1 Total Bilirubin 0.8 AST 61 H ALT 54 H Alkaline Phosphatase 51 Total Protein 6.0 L Albumin 2.5 L Vancomycin Trough 18.4 Quality VTE Prophylaxis VTE prophylaxis: pharmacologic ordered
[2024-03-26 08:49] LABS: Glucose Point of Care 152 mg/dl (65-105)
[2024-03-26 10:39] LABS: Alveolar/Arterial O2 Gradient 105.2 mmHg; Base Excess ABG 2.2 mEq/l (+/-2.0); Fractional Inspired Oxygen 30 %; HCO3 ABG 25.5 mEq/l (22.0-26.0); Oxygen Content ABG 15.6 %vol (16.0-22.0); Oxygen Saturation ABG 94.8 % (95.0-100.0); Oxyhemoglobin 94.8 % THb (90.0-100.0); PO2 ABG 67.6 mmHg (80.0-100.0); PO2 FiO2 Ratio Arterial Blood 2.25 %; Total Hemoglobin 11.7 g/dL (12.0-18.0)
[2024-03-26 10:40] LABS: Device VENTILATOR; Modified Allen's Test Pass; Site Drawn RIGHT RADIAL
[2024-03-26 10:41] LABS: Arterial Blood Gas PEEP 8 cmH2O; Arterial Blood Gas Vent Mode SPONTANEOUS
[2024-03-26 10:44] LABS: Arterial Blood Gas Pressure Support 5 cmH2O
[2024-03-26] MEDS: IPRATROPIUM 0.5 MG/ALBUTEROL SULFATE 2.5 MG AMPUL.NEB 3 ML INHALATION ×2 (11:18→22:07)
--- NOTE | 2024-03-26 11:29 | PCFNICU ---
ICU Rounding Note: Pt current nutrition is Vital AF 1.2 at 40 ml/hr. Last recorded weight is 104.2 kg, up from 99 kg on admit. Bowel Motility: No BM reported. Labs Reviewed:Glu 139, BUN 37, K 3.3, Alb 2.5 Meds Noted: Zosyn, Protonix, Rocephin. Skin: WNL Additional Notes: Patient has been extubated. NPO till medically cleared for diet orders. Following daily in ICU rounds. Will monitor weight, labs, skin, diet orders, meds every 3 days.
[2024-03-26 12:04] LABS: Glucose Point of Care 171 mg/dl (65-105)
[2024-03-26 16:51] LABS: Glucose Point of Care 133 mg/dl (65-105)
[2024-03-26 18:24] LABS: Pneumococcal Antigen Urine DETECTED
[2024-03-26 20:53] LABS: Glucose Point of Care 104 mg/dl (65-105)
[2024-03-27] VITALS (18 sets, daily range): BP systolic 115–135; BP diastolic 71–97; PULSE 59–90; RESP 18–27; TEMP 36.4–37.7; O2SAT 95–100
[2024-03-27 05:03] LABS: Basophils Percent Auto 0.3 % (0.2-1.2); Eosinophils Absolute Auto 0.1 K/mm3 (0-0.3); Eosinophils Percent Auto 0.5 % (0-4.4); Hematocrit 30.5 % (37.0-47.0); Hemoglobin 10.1 g/dL (12.0-15.0); Immature Granulocyte Absolute 0.22 K/mm3 (0.00-0.031); Immature Granulocyte Percent A 2.2 % (0-0.5); Lymphocytes Absolute Auto 1.73 K/mm3 (0.9-3.2); Lymphocytes Percent Auto 17.3 % (18.3-44.2); Mean Corpuscular HGB Conc 33.1 g/dl (32-36); Mean Corpuscular Hemoglobin 31.4 pg (26-34); Mean Corpuscular Volume 94.7 fl (80-100); Monocytes Absolute Auto 0.3 K/mm3 (0.1-0.6); Monocytes Percent Auto 3.4 % (2.6-8.5); Neutrophils Absolute Auto 7.6 K/mm3 (1.3-6.7); Neutrophils Percent Auto 76.3 % (45.5-73.1); Platelet Count Result 246 k/mm3 (150-375); Red Blood Count 3.22 M/mm3 (4.2-5.4)
[2024-03-27 05:19] LABS: Alanine Aminotransferase 48 U/L (6-35); Albumin Level 2.7 g/dL (3.5-5.1); Alkaline Phosphatase 54 U/L (38-126); Anion Gap 4 mmol/L (4-12); Aspartate Amino Transferase 35 U/L (14-36); Bilirubin,Total 0.8 mg/dL (0.2-1.3); Blood Urea Nitrogen 27 mg/dL (7-17); Calcium 8.3 mg/dL (8.4-10.2); Carbon Dioxide 27 mmol/L (22-30); Chloride 109 mmol/L (98-107); Estimated CRCL calculation 114 ml/min; Estimated Glomerular Filt Rate > 60; Glucose 106 mg/dL (65-110); Sodium 140 mmol/L (137-145)
[2024-03-27 05:23] LABS: Anisocytosis 1+; Platelet Estimate Adequate (Adequate); Schistocytes None Seen
[2024-03-27] MEDS: CENTRAL LINE FLUSH 10 ML IV PUSH (06:36)
[2024-03-27] MEDS: HEPARIN SODIUM 5,000 UNITS/ML VIAL 5000 UNITS SUB-Q ×3 (06:36→21:10)
[2024-03-27] MEDS: ACETAMINOPHEN ELIXIR 325 MG/10.15 ML UDC 650 MG FEED TUBE ×2 (06:36→23:37)
[2024-03-27 07:08] LABS: Vancomycin Trough 15.3 ug/mL (10.0-20.0)
[2024-03-27] MEDS: cefTRIAXone 2 GM/NS 100 ML 2 GM/100 ML BAG IVPB (07:48)
[2024-03-27] MEDS: VANCOMYCIN 1,500 MG/NS 500 ML 1,500 MG/500 ML BAG 250 MG IVPB (07:54)
[2024-03-27] MEDS: HYDROCORTISONE SODIUM SUCCINATE 100 MG/2 ML VIAL 50 MG IV PUSH (07:59)
[2024-03-27] MEDS: PANTOPRAZOLE SODIUM IV 40 MG VIAL IV PUSH (07:59)
[2024-03-27] MEDS: DOXYCYCLINE 100 MG/NS 100 ML 100 MG/100 ML BAG IVPB ×2 (08:00→20:15)
[2024-03-27] MEDS: KCL 40 MEQ/WATER 100 ML 100 ML 25 ML IVPB (08:16)
[2024-03-27 08:18] LABS: Glucose Point of Care 111 mg/dl (65-105)
[2024-03-27] MEDS: POTASSIUM BICARBONATE 25 MEQ TABEF 50 MEQ PO (08:34)
[2024-03-27] MEDS: IPRATROPIUM 0.5 MG/ALBUTEROL SULFATE 2.5 MG AMPUL.NEB 3 ML INHALATION ×2 (09:57→19:44)
[2024-03-27 10:27] LABS: Hemoglobin A1C 5.4 % (<5.7)
--- NOTE | 2024-03-27 10:50 | WPDINTPN ---
Progress Note: A&P Assessment and Plan (1) Acute respiratory failure: Code(s): J96.00 - Acute respiratory failure, unspecified whether with hypoxia or hypercapnia Status: Acute Assessment and Plan: Acute respiratory failure likely secondary to community-acquired pneumonia with possible component of congestive heart failure Chest CTA IMPRESSION: 1. Pneumonia in multiple areas with the largest in the leftlower lobe. 2. No pulmonary embolism. 3. Nodule in the right upper lobe. 6 months follow-up CT is advised. Patient was intubated and sedated 03/26 extubated after a successful weaning trial 03/27 on room air this morning Incentive spirometry, PT OT Pending urine Legionella Positive urine pneumococcal antigen Continue Bronchodilators (2) Septic shock: Code(s): A41.9 - Sepsis, unspecified organism; R65.21 - Severe sepsis with septic shock Status: Acute Assessment and Plan: Post intubation patient became hypotensive and was started on Levophed Levophed has been weaned off this morning Treatment of pneumonia as above Will hold further IV fluids as patient is seated close to 5 L of IV fluids. And IV Lasix Patient is chronically on low-dose prednisone which is marked as p.r.n. on her medication list. I do not know how frequently she takes it. Continue hydrocortisone Blood cultures are growing MSSA and strep pneumo Sputum cultures growing MSSA Continue Rocephin and doxycycline. Vancomycin discontinued (3) Community acquired pneumonia: Code(s): J18.9 - Pneumonia, unspecified organism Status: Acute Assessment and Plan: See above (4) Congestive heart failure: Code(s): I50.9 - Heart failure, unspecified Status: Acute Assessment and Plan: Patient has elevated BNP Hold further fluids Patient was given IV Lasix for last 2 days Echo Summary 1. Technically difficult study with limited views. 2. Left ventricular chamber dimension is normal. 3. Left ventricular systolic function is normal, estimated at 50-55%. 4. The left ventricular diastolic function is grade I diastolic dysfunction. 5. Right ventricular systolic function is normal. 6. There is mild tricuspid valve regurgitation. (5) Bacteremia: Code(s): R78.81 - Bacteremia Status: Acute Assessment and Plan: See above Plan DVT prophylaxis -SC heparin Stress ulcer prophylaxis -Protonix Nutrition -resume diet Code Status - Full Code Remove central central venous catheter, incentive spirometry, consult PT OT Transfer out of ICU today Subjective Date/time seen: 03/27/24 Patient was extubated yesterday after a successful weaning trial. Patient has done well since then and is currently on room air. She states she feels that she has her asthma 'going on' but denies any other complaints. She admits to having cough but is dry. No shortness of breath chest pain abdominal pain nausea vomiting or diarrhea. All other systems were reviewed and were negative Sinus rhythm on the monitor adequate blood pressure Still having low-grade fevers Good urine output. Review of Systems Review of Systems: All systems reviewed & are unremarkable except as noted in HPI and below (HPI) Exam Narrative: General: Pt is alert awake and in no distress Lungs/Chest: Trachea central Coarse BS B/L, no wheezing or crackles Cardiac: RRR. Normal S1 S2. No murmurs Circulation: Pedal pulses are intact and symmetrical. Abdomen:Obese. Soft. NT. ND. Extremities: No clubbing, cyanosis or edema. Warm : Mcbride in place Neurologic: Awake alert and follows commands all 4 extremities, AO x2 normal speech and affect. PERRL Objective Data Vital Signs Vital Signs: Vital Signs - 24 hr 03/26/24 11:00 03/26/24 11:01 03/26/24 11:21 Temperature Pulse Rate 91 Respiratory Rate 28 H Blood Pressure Pulse Oximetry 95 Oxygen Delivery Nasal Cannula Oxygen Flow Rate 2 Fraction of Inspired Oxygen 28 03/26/24 11:42 03/26/24 12:00 03/26/24 12:00 Temperature 38.5 C H Pulse Rate 99 92 Respiratory Rate 26 H 28 H Blood Pressure 127/85 Pulse Oximetry 97 97 Oxygen Delivery Nasal Cannula Oxygen Flow Rate 2 Fraction of Inspired Oxygen 03/26/24 12:00 03/26/24 14:42 03/26/24 14:00 Temperature 38.3 C H 38.3 C H Pulse Rate 92 92 Respiratory Rate 20 Blood Pressure 121/87 Pulse Oximetry 98 Oxygen Delivery Oxygen Flow Rate Fraction of Inspired Oxygen 03/26/24 16:00 03/26/24 16:30 03/26/24 16:00 Temperature 38.3 C H Pulse Rate 87 Respiratory Rate 15 Blood Pressure 126/83 Pulse Oximetry 97 97 Oxygen Delivery Nasal Cannula Oxygen Flow Rate 2 Fraction of Inspired Oxygen 03/26/24 14:00 03/26/24 16:00 03/26/24 18:51 Temperature 38.3 C H Pulse Rate 92 83 Respiratory Rate Blood Pressure Pulse Oximetry Oxygen Delivery Oxygen Flow Rate Fraction of Inspired Oxygen 03/26/24 18:00 03/26/24 18:00 03/26/24 19:01 Temperature Pulse Rate 80 79 Respiratory Rate 18 Blood Pressure 125/91 H Pulse Oximetry 96 95 Oxygen Delivery Room Air Oxygen Flow Rate Fraction of Inspired Oxygen 03/26/24 20:00 03/26/24 20:00 03/26/24 22:00 Temperature 38.3 C H Pulse Rate 78 78 74 Respiratory Rate 17 Blood Pressure 121/81 Pulse Oximetry 97 Oxygen Delivery Oxygen Flow Rate Fraction of Inspired Oxygen 03/26/24 22:00 03/26/24 22:07 03/26/24 22:09 Temperature 38.0 C H Pulse Rate 77 79 Respiratory Rate 31 H 28 H Blood Pressure 118/70 Pulse Oximetry 100 95 Oxygen Delivery Room Air Oxygen Flow Rate Fraction of Inspired Oxygen 03/26/24 22:17 03/27/24 00:00 03/27/24 00:00 Temperature Pulse Rate 90 90 78 Respiratory Rate 20 20 Blood Pressure Pulse Oximetry 95 Oxygen Delivery Room Air Oxygen Flow Rate Fraction of Inspired Oxygen 28 03/27/24 00:00 03/27/24 02:00 03/27/24 02:00 Temperature 37.7 C H 37.6 C H Pulse Rate 78 77 77 Respiratory Rate 27 H 23 H Blood Pressure 117/77 120/86 Pulse Oximetry 95 96 Oxygen Delivery Oxygen Flow Rate Fraction of Inspired Oxygen 03/27/24 04:00 03/27/24 04:00 03/27/24 04:00 Temperature 37.6 C H Pulse Rate 77 74 74 Respiratory Rate 23 H 25 H Blood Pressure 124/88 Pulse Oximetry 96 95 Oxygen Delivery Room Air Oxygen Flow Rate Fraction of Inspired Oxygen 28 03/27/24 06:00 03/27/24 06:00 03/27/24 08:00 Temperature 37.7 C H 37.7 C H Pulse Rate 76 75 71 Respiratory Rate 21 H 26 H Blood Pressure 123/80 115/80 Pulse Oximetry 96 95 Oxygen Delivery Oxygen Flow Rate Fraction of Inspired Oxygen 03/27/24 08:00 03/27/24 08:00 03/27/24 10:00 Temperature Pulse Rate 72 75 Respiratory Rate Blood Pressure Pulse Oximetry Oxygen Delivery Room Air Oxygen Flow Rate Fraction of Inspired Oxygen 03/27/24 09:20 03/27/24 09:57 03/27/24 10:08 Temperature Pulse Rate 76 82 Respiratory Rate 20 20 Blood Pressure Pulse Oximetry 98 Oxygen Delivery Room Air Oxygen Flow Rate Fraction of Inspired Oxygen 03/27/24 10:00 Temperature 37.7 C H Pulse Rate 75 Respiratory Rate 26 H Blood Pressure 135/97 H Pulse Oximetry 95 Oxygen Delivery Oxygen Flow Rate Fraction of Inspired Oxygen Intake/Output Intake/Output: Intake & Output 03/24/24 03/25/24 03/26/24 03/27/24 23:59 23:59 23:59 23:59 Intake Total 4639.1 2997.7 2401.5 Output Total 1150 1950 4465 850 Balance 3489.1 1047.7 -2063.5 -850 Meds/Results Medications: Active Medications Generic Name Dose Route Start Last Admin Trade Name Freq PRN Reason Stop Dose Admin Acetaminophen 650 mg 03/23/24 18:05 03/25/24 12:20 Acetaminophen 650 Mg Suppository RECTAL 650 mg Q6H PRN Administration Mild Pain (1-3) or Fever Acetaminophen 650 mg 03/25/24 23:38 03/27/24 06:36 Acetaminophen Elixir 325 Mg/10.15 Ml Udc FEED TUBE 650 mg Q4HR PRN Administration Mild Pain (1-3) or Fever Albuterol/Ipratropium 3 ml 03/24/24 09:25 03/27/24 09:57 Ipratropium 0.5 Mg/Albuterol Sulfate 2.5 Mg Ampul.Neb 3 Ml INHALATION 3 ml Q6HRT PRN Administration Wheezing Alteplase, Recombinant 2 mg 03/25/24 17:41 03/25/24 17:54 Alteplase 2 Mg Vial (Cathflo) IV PUSH 2 mg ONCE PRN Administration Line Occlusion Bisacodyl 5 mg 03/23/24 21:45 Bisacodyl 5 Mg Tablet Ec PO DAILY PRN Constipation Dextrose 12.5 gm 03/24/24 08:15 Dextrose 50% 25 Gm/50 Ml Syringe IV PUSH PRN PRN Hypoglycemia Protocol Docusate Sodium 100 mg 03/24/24 09:00 03/24/24 08:27 Docusate Sodium 100 Mg Capsule PO Not Given BID LYNNE Glucagon 1 mg 03/24/24 08:15 Glucagon For Inj 1 Mg Vial IM PRN PRN Hypoglycemia Protocol Glucose 15 gm 03/24/24 08:15 Glucose Oral Gel 15 Gm Of Glucse In 37.5 Gm Tube PO PRN PRN Hypoglycemia Protocol Heparin Sodium (Porcine) 5,000 units 03/24/24 14:00 03/27/24 06:36 Heparin Sodium 5,000 Units/Ml Vial SUB-Q 5,000 units Q8HR LYNNE Administration Hydrocortisone Sodium Succinate 50 mg 03/26/24 09:00 03/27/24 07:59 Hydrocortisone Sodium Succinate 100 Mg/2 Ml Vial IV PUSH 50 mg QAM LYNNE Administration Doxycycline Hyclate 100 mg in 100 mls @ 100 mls/hr 03/24/24 09:00 03/27/24 08:00 Vibramycin 100 Mg/Ns 100 Ml IVPB 03/28/24 21:59 100 mls/hr Q12H LYNNE Administration Dextrose 1,000 mls @ 100 mls/hr 03/24/24 08:15 Dextrose 5% 1,000 Ml IVPB PRN PRN Hypoglycemia Protocol Ceftriaxone Sodium 2 gm in 100 mls @ 200 mls/hr 03/26/24 08:00 03/27/24 07:48 Rocephin 2 Gm/Ns 100 Ml IVPB 200 mls/hr Q24H LYNNE Administration Potassium Chloride 100 mls @ 25 mls/hr 03/27/24 08:00 03/27/24 08:16 Kcl 40 Meq/Water 100 Ml IVPB 03/27/24 11:59 25 mls/hr ONCE ONE Administration Insulin Aspart 2 - 5 units 03/27/24 12:00 Insulin Aspart (*Bkc) 100 Units/Ml SUB-Q TIDWM LYNNE Protocol Insulin Aspart 1 - 2 units 03/27/24 21:00 Insulin Aspart (*Bkc) 100 Units/Ml SUB-Q HS LYNNE Protocol Pantoprazole Sodium 40 mg 03/24/24 09:00 03/27/24 07:59 Pantoprazole Sodium Iv 40 Mg Vial IV PUSH 40 mg QAM LYNNE Administration Sodium Chloride 20 ml 03/24/24 11:21 Central Line Flush IV PUSH PRN PRN after blood draws Radiology Results: ITS Impressions Abdomen X-Ray 03/23/24 17:28 IMPRESSION: 1. Nasogastric tube tip in the stomach. Chest CTA 03/23/24 19:45 IMPRESSION: 1. Pneumonia in multiple areas with the largest in the left lower lobe. 2. No pulmonary embolism. 3. Nodule in the right upper lobe. 6 months follow-up CT is advised. Chest X-Ray 03/26/24 07:14 Impression: Small left pleural effusion with probable left lower lobe/left basilar atelectasis. Correlate clinically for pneumonia. Minimal central congestive change. Support tubes, as above. Labs Labs: Laboratory Results - last 24 hr 03/23/24 03/26/24 03/26/24 17:54 11:58 16:47 WBC RBC Hgb Hct MCV MCH MCHC RDW Plt Count MPV Immature Gran % (Auto) Neut % (Auto) Lymph % (Auto) [place] % (Auto) Eos % (Auto) Baso % (Auto) Lymph # (Auto) [place] # (Auto) Eos # (Auto) Baso # (Auto) Abs Immat Gran (auto) Absolute Neuts (auto) Absolute Nucleated RBC Nucleated RBC % Platelet Estimate Anisocytosis Schistocytes Sodium Potassium Chloride Carbon Dioxide Anion Gap BUN Creatinine Estim Creat Clear Calc Estimated GFR Glucose POC Capillary Glucose 171 H 133 H Hemoglobin A1c Calcium Total Bilirubin AST ALT Alkaline Phosphatase Total Protein Albumin Vancomycin Trough Urine Pneumococcal Ag Detected A 03/26/24 03/27/24 03/27/24 20:50 04:49 04:57 WBC 10.0 RBC 3.22 L Hgb 10.1 L Hct 30.5 L MCV 94.7 MCH 31.4 MCHC 33.1 RDW 13.0 Plt Count 246 MPV 10.0 Immature Gran % (Auto) 2.2 H Neut % (Auto) 76.3 H Lymph % (Auto) 17.3 L [place] % (Auto) 3.4 Eos % (Auto) 0.5 Baso % (Auto) 0.3 Lymph # (Auto) 1.73 [place] # (Auto) 0.3 Eos # (Auto) 0.1 Baso # (Auto) 0.0 Abs Immat Gran (auto) 0.22 H Absolute Neuts (auto) 7.6 H Absolute Nucleated RBC 0.000 Nucleated RBC % 0.0 Platelet Estimate Adequate Anisocytosis 1+ Schistocytes None seen Sodium 140 Potassium 3.0 L Chloride 109 H Carbon Dioxide 27 Anion Gap 4 BUN 27 H D Creatinine 0.60 L Estim Creat Clear Calc 114 Estimated GFR > 60 Glucose 106 POC Capillary Glucose 104 Hemoglobin A1c 5.4 Calcium 8.3 L Total Bilirubin 0.8 AST 35 ALT 48 H Alkaline Phosphatase 54 Total Protein 6.0 L Albumin 2.7 L Vancomycin Trough 15.3 Urine Pneumococcal Ag 03/27/24 07:53 WBC RBC Hgb Hct MCV MCH MCHC RDW Plt Count MPV Immature Gran % (Auto) Neut % (Auto) Lymph % (Auto) [place] % (Auto) Eos % (Auto) Baso % (Auto) Lymph # (Auto) [place] # (Auto) Eos # (Auto) Baso # (Auto) Abs Immat Gran (auto) Absolute Neuts (auto) Absolute Nucleated RBC Nucleated RBC % Platelet Estimate Anisocytosis Schistocytes Sodium Potassium Chloride Carbon Dioxide Anion Gap BUN Creatinine Estim Creat Clear Calc Estimated GFR Glucose POC Capillary Glucose 111 H Hemoglobin A1c Calcium Total Bilirubin AST ALT Alkaline Phosphatase Total Protein Albumin Vancomycin Trough Urine Pneumococcal Ag Quality VTE Prophylaxis VTE prophylaxis: pharmacologic ordered
[2024-03-27 11:26] LABS: Glucose Point of Care 200 mg/dl (65-105)
--- NOTE | 2024-03-27 11:39 | PCFNICU ---
ICU Rounding Note: Pt current nutrition is Heart Healthy Last recorded weight is 102 kg, up from 99 kg on admit. Bowel Motility:+BM reported 03/26 Labs Reviewed:Cr 0.6, K 3.0, BUN 27, Alb 2.7, Hct 30.5, Hgb 10.1 Meds Noted: Protonix, Heparin. Skin: WNL Additional Notes: Patient extubated 03/26. Diet order has advanced to heart healthy. Tolerating diet. Agree with diet orders. Following daily in ICU rounds. Will monitor weight, labs, skin, diet orders, meds every 5 days.
--- NOTE | 2024-03-27 15:50 | PC.NURSE ---
This patient, Gini Gleason, was transferred to [facility] on 03/27/24 at 1550. Personal belongings sent with patient. Report given to Yoana. Appropriate documentation sent with patient.
[2024-03-27 19:57] LABS: Glucose Point of Care 85 mg/dl (65-105)
[2024-03-28] VITALS (21 sets, daily range): BP systolic 121–143; BP diastolic 71–92; PULSE 65–94; RESP 16–20; TEMP 36.5–36.8; O2SAT 95–100
[2024-03-28 05:20] LABS: Basophils Percent Auto 0.4 % (0.2-1.2); Eosinophils Absolute Auto 0.2 K/mm3 (0-0.3); Eosinophils Percent Auto 1.9 % (0-4.4); Hematocrit 35.1 % (37.0-47.0); Hemoglobin 11.5 g/dL (12.0-15.0); Immature Granulocyte Absolute 0.48 K/mm3 (0.00-0.031); Immature Granulocyte Percent A 4.9 % (0-0.5); Lymphocytes Absolute Auto 1.79 K/mm3 (0.9-3.2); Lymphocytes Percent Auto 18.3 % (18.3-44.2); Mean Corpuscular HGB Conc 32.8 g/dl (32-36); Mean Corpuscular Hemoglobin 31.3 pg (26-34); Mean Corpuscular Volume 95.6 fl (80-100); Mean Platelet Volume 10.4 fl (7.4-10.4); Monocytes Absolute Auto 0.4 K/mm3 (0.1-0.6); Monocytes Percent Auto 4.5 % (2.6-8.5); Neutrophils Absolute Auto 6.9 K/mm3 (1.3-6.7); Nucleated Red Blood Cells Perc 0.2 % (0.0-0.2); Platelet Count Result 337 k/mm3 (150-375); Red Blood Count 3.67 M/mm3 (4.2-5.4); Red Cell Distribution Width 12.5 % (11.5-14.5); White Blood Count 9.8 K/mm3 (4.5-10.0)
[2024-03-28 05:25] LABS: Alanine Aminotransferase 42 U/L (6-35); Alkaline Phosphatase 57 U/L (38-126); Anion Gap 6 mmol/L (4-12); Aspartate Amino Transferase 28 U/L (14-36); Bilirubin,Total 0.7 mg/dL (0.2-1.3); Blood Urea Nitrogen 18 mg/dL (7-17); Calcium 8.7 mg/dL (8.4-10.2); Carbon Dioxide 25 mmol/L (22-30); Chloride 107 mmol/L (98-107); Estimated CRCL calculation 130 ml/min; Estimated Glomerular Filt Rate > 60; Glucose 106 mg/dL (65-110); Potassium 3.2 mmol/L (3.4-5.0); Sodium 138 mmol/L (137-145)
[2024-03-28] MEDS: HEPARIN SODIUM 5,000 UNITS/ML VIAL 5000 UNITS SUB-Q ×3 (05:48→21:21)
[2024-03-28 08:17] LABS: Glucose Point of Care 115 mg/dl (65-105)
[2024-03-28] MEDS: DOXYCYCLINE 100 MG/NS 100 ML 100 MG/100 ML BAG IVPB ×2 (09:00→21:53)
[2024-03-28] MEDS: cefTRIAXone 2 GM/NS 100 ML 2 GM/100 ML BAG IVPB (09:07)
[2024-03-28] MEDS: POTASSIUM CHLORIDE 20 MEQ ER TABLET 40 MEQ PO (09:08)
[2024-03-28] MEDS: PANTOPRAZOLE SODIUM IV 40 MG VIAL IV PUSH (11:05)
[2024-03-28] MEDS: HYDROCORTISONE SODIUM SUCCINATE 100 MG/2 ML VIAL 50 MG IV PUSH (11:05)
[2024-03-28 11:50] LABS: Glucose Point of Care 114 mg/dl (65-105)
[2024-03-28] MEDS: IPRATROPIUM 0.5 MG/ALBUTEROL SULFATE 2.5 MG AMPUL.NEB 3 ML INHALATION ×2 (14:20→21:28)
--- NOTE | 2024-03-28 14:31 | P.PNIM_ITS ---
Progress Note: A&P Assessment and Plan (1) Acute respiratory failure: Code(s): J96.00 - Acute respiratory failure, unspecified whether with hypoxia or hypercapnia Status: Acute Assessment and Plan: Patient presents with SOB and was found to be in acute respiratory distress. She was febrile. CXR showing airspace disease left mid and lower lung zones. BNP 1330. ABG 7.42/27/79 on NIV. CTA chest showing pneumonia in multiple areas with the largest in the left lower lobe but no PE. Incidental finding of a RUL nodule. Acute respiratory failure likely secondary to community-acquired pneumonia with possible component of CHF ABG worsened and patient was intubated and sedated 03/23/24 She was fluid positive and did receive lasix IV once on 03/25 and 03/26 with excellent UOP. Patient did well and was able to be extubated 03/26 after a successful weaning trial CXR (03/26) showing small left pleural effusion wit probable LLL/left basilar atelectasis. Weaned to room air now. Continue incentive spirometry, PT/OT. Resume Bronchodilators. CPT. remove Mcbride (2) Septic shock: Code(s): A41.9 - Sepsis, unspecified organism; R65.21 - Severe sepsis with septic shock Status: Acute Assessment and Plan: Post intubation, patient became hypotensive requiring Levophed. Levophed was weaned off the next day Patient is chronically on low-dose prednisone that she takes intermitently. Hydrocortisone started. Septic shock related to PNA. BCx 03/23 grew Strept pneumoniae aerobic bottle and MSSA in the other aerobic bottle. BCx 03/26 NGTD Sputum Cx 03/24 growing MSSA Echo as below MRSA nasal swab negative. Urine Legionella Ag pending. Urine pneumococcal antigen positive. Started on Zosyn and Vanco but changed to Rocephin 2gm dialy on 03/26 and doxy cycline 03/24. Vancomycin discontinued Continue IV abx. (3) Community acquired pneumonia: Code(s): J18.9 - Pneumonia, unspecified organism Status: Acute Assessment and Plan: As above (4) Congestive heart failure: Code(s): I50.9 - Heart failure, unspecified Status: Acute Assessment and Plan: Patient has elevated BNP to 1330. Was on IV fluids as above but now stopped. Lasix IV once on 03/25 and 03/26 with excellent UOP Echo was technically difficult but showed LV size and fxn normal with EF 50-55%, Grade I diastolic dysfxn and mild TR. Fluid status better. Remains on room air. Add empagliflozin when more stable. (5) Bacteremia: Code(s): R78.81 - Bacteremia Status: Acute Assessment and Plan: As above (6) Rheumatoid arthritis: Code(s): M06.9 - Rheumatoid arthritis, unspecified Status: Acute Assessment and Plan: On steroids. Wean down as tolerated. Review home meds and start appropriate meds. Plan DVT prophylaxis -SC heparin Code Status - Full Code Subjective Date/time seen: 03/28/24 14:31 Interval history: 54yo female wit RA, fibromyalgia, migraines and depression here for shortness fo breath. Assuming care. Chart reviewed. She mentions that she had odd dreams last night that were vivid. She has a wet cough but nonproductive. Was out of bed to the chair yesterday. Exam Narrative: AF 98.2 128/81 73 20 97% ra Gen - NARD Chest - egophony left mid and lower lung field. Decreased BS in the left base. right base crackles. Expiratory rhonchi and a rare wheeze CV - RRR S1/S2.Tele showing PVCs Abd - Soft, obese, +BS - Mcbride secured draining clear yellow urine Ext - No pedal edema Psych - Nml mood and affect Skin - Warm and dry Objective Data Vital Signs Vital Signs: Vital Signs - 24 hr 03/27/24 15:01 03/27/24 16:15 03/27/24 16:00 Temperature 97.6 F Pulse Rate 66 59 L Respiratory Rate 20 20 Blood Pressure 122/71 Pulse Oximetry 98 98 Oxygen Delivery Room Air Room Air Fraction of Inspired Oxygen 28 03/27/24 16:00 03/27/24 17:37 03/27/24 19:44 Temperature Pulse Rate 66 65 Respiratory Rate Blood Pressure Pulse Oximetry 95 Oxygen Delivery Room Air Fraction of Inspired Oxygen 03/27/24 19:44 03/27/24 19:45 03/27/24 20:00 Temperature 97.8 F Pulse Rate 72 69 Respiratory Rate 18 18 Blood Pressure 135/79 Pulse Oximetry 100 Oxygen Delivery Room Air Fraction of Inspired Oxygen 03/27/24 20:00 03/27/24 22:00 03/28/24 00:00 Temperature 98 F Pulse Rate 65 64 77 Respiratory Rate 20 Blood Pressure 121/71 Pulse Oximetry 100 Oxygen Delivery Fraction of Inspired Oxygen 03/27/24 23:15 03/28/24 00:00 03/28/24 02:00 Temperature Pulse Rate 70 65 Respiratory Rate Blood Pressure Pulse Oximetry 97 Oxygen Delivery Room Air Fraction of Inspired Oxygen 03/28/24 04:00 03/28/24 04:00 03/28/24 04:00 Temperature 98.1 F Pulse Rate 79 72 Respiratory Rate 20 Blood Pressure 129/75 Pulse Oximetry 96 Oxygen Delivery Room Air Fraction of Inspired Oxygen 03/28/24 05:58 03/28/24 07:59 03/28/24 08:00 Temperature 97.7 F Pulse Rate 68 80 83 Respiratory Rate 18 18 Blood Pressure 135/74 Pulse Oximetry 95 95 Oxygen Delivery Room Air Fraction of Inspired Oxygen 28 03/28/24 08:00 03/28/24 10:00 03/28/24 09:52 Temperature Pulse Rate 80 83 Respiratory Rate Blood Pressure Pulse Oximetry Oxygen Delivery Room Air Fraction of Inspired Oxygen 03/28/24 10:47 03/28/24 11:35 03/28/24 11:35 Temperature Pulse Rate 83 Respiratory Rate Blood Pressure Pulse Oximetry 95 Oxygen Delivery Room Air Room Air Fraction of Inspired Oxygen 03/28/24 11:40 03/28/24 14:21 Temperature 98.2 F Pulse Rate 78 73 Respiratory Rate 20 20 Blood Pressure 128/81 Pulse Oximetry 97 Oxygen Delivery Fraction of Inspired Oxygen Intake/Output Intake/Output: Intake & Output 03/25/24 03/26/24 03/27/24 03/28/24 23:59 23:59 23:59 23:59 Intake Total 2997.7 2401.5 640 440 Output Total 1950 4465 850 600 Balance 1047.7 -2063.5 -210 -160 Meds/Results Medications: Active Medications Generic Name Dose Route Start Last Admin Trade Name Freq PRN Reason Stop Dose Admin Acetaminophen 650 mg 03/23/24 18:05 03/25/24 12:20 Acetaminophen 650 Mg Suppository RECTAL 650 mg Q6H PRN Administration Mild Pain (1-3) or Fever Acetaminophen 650 mg 03/25/24 23:38 03/27/24 23:37 Acetaminophen Elixir 325 Mg/10.15 Ml Udc FEED TUBE 650 mg Q4HR PRN Administration Mild Pain (1-3) or Fever Albuterol/Ipratropium 3 ml 03/24/24 09:25 03/28/24 14:20 Ipratropium 0.5 Mg/Albuterol Sulfate 2.5 Mg Ampul.Neb 3 Ml INHALATION 3 ml Q6HRT PRN Administration Wheezing Alteplase, Recombinant 2 mg 03/25/24 17:41 03/25/24 17:54 Alteplase 2 Mg Vial (Cathflo) IV PUSH 2 mg ONCE PRN Administration Line Occlusion Bisacodyl 5 mg 03/23/24 21:45 Bisacodyl 5 Mg Tablet Ec PO DAILY PRN Constipation Dextrose 12.5 gm 03/24/24 08:15 Dextrose 50% 25 Gm/50 Ml Syringe IV PUSH PRN PRN Hypoglycemia Protocol Docusate Sodium 100 mg 03/24/24 09:00 03/24/24 08:27 Docusate Sodium 100 Mg Capsule PO Not Given BID LYNNE Glucagon 1 mg 03/24/24 08:15 Glucagon For Inj 1 Mg Vial IM PRN PRN Hypoglycemia Protocol Glucose 15 gm 03/24/24 08:15 Glucose Oral Gel 15 Gm Of Glucse In 37.5 Gm Tube PO PRN PRN Hypoglycemia Protocol Heparin Sodium (Porcine) 5,000 units 03/24/24 14:00 03/28/24 05:48 Heparin Sodium 5,000 Units/Ml Vial SUB-Q 5,000 units Q8HR LYNNE Administration Hydrocortisone Sodium Succinate 50 mg 03/26/24 09:00 03/28/24 11:05 Hydrocortisone Sodium Succinate 100 Mg/2 Ml Vial IV PUSH 50 mg QAM LYNNE Administration Doxycycline Hyclate 100 mg in 100 mls @ 100 mls/hr 03/24/24 09:00 03/28/24 09:00 Vibramycin 100 Mg/Ns 100 Ml IVPB 03/28/24 21:59 100 mls/hr Q12H LYNNE Administration Dextrose 1,000 mls @ 100 mls/hr 03/24/24 08:15 Dextrose 5% 1,000 Ml IVPB PRN PRN Hypoglycemia Protocol Ceftriaxone Sodium 2 gm in 100 mls @ 200 mls/hr 03/26/24 08:00 03/28/24 09:07 Rocephin 2 Gm/Ns 100 Ml IVPB 200 mls/hr Q24H LYNNE Administration Insulin Aspart 2 - 5 units 03/27/24 12:00 03/28/24 09:08 Insulin Aspart (*Bkc) 100 Units/Ml SUB-Q Not Given TIDWM COUNTS INCLUDE [facility] BEDS AT [facility] Protocol Insulin Aspart 1 - 2 units 03/27/24 21:00 03/27/24 19:59 Insulin Aspart (*Bkc) 100 Units/Ml SUB-Q Not Given HS LYNNE Protocol Pantoprazole Sodium 40 mg 03/24/24 09:00 03/28/24 11:05 Pantoprazole Sodium Iv 40 Mg Vial IV PUSH 40 mg QAM LYNNE Administration Sodium Chloride 20 ml 03/24/24 11:21 Central Line Flush IV PUSH PRN PRN after blood draws Radiology Results: ITS Impressions Abdomen X-Ray 03/23/24 17:28 IMPRESSION: 1. Nasogastric tube tip in the stomach. Chest CTA 03/23/24 19:45 IMPRESSION: 1. Pneumonia in multiple areas with the largest in the left lower lobe. 2. No pulmonary embolism. 3. Nodule in the right upper lobe. 6 months follow-up CT is advised. Chest X-Ray 03/26/24 07:14 Impression: Small left pleural effusion with probable left lower lobe/left basilar atelectasis. Correlate clinically for pneumonia. Minimal central congestive change. Support tubes, as above. Labs Labs: Laboratory Results - last 24 hr 03/27/24 03/28/24 03/28/24 19:55 05:03 07:57 WBC 9.8 RBC 3.67 L Hgb 11.5 L Hct 35.1 L MCV 95.6 MCH 31.3 MCHC 32.8 RDW 12.5 Plt Count 337 MPV 10.4 Immature Gran % (Auto) 4.9 H Neut % (Auto) 70.0 Lymph % (Auto) 18.3 [place] % (Auto) 4.5 Eos % (Auto) 1.9 Baso % (Auto) 0.4 Lymph # (Auto) 1.79 [place] # (Auto) 0.4 Eos # (Auto) 0.2 Baso # (Auto) 0.0 Abs Immat Gran (auto) 0.48 H Absolute Neuts (auto) 6.9 H Absolute Nucleated RBC 0.020 H Nucleated RBC % 0.2 Sodium 138 Potassium 3.2 L Chloride 107 Carbon Dioxide 25 Anion Gap 6 BUN 18 H Creatinine 0.50 L Estim Creat Clear Calc 130 Estimated GFR > 60 Glucose 106 POC Capillary Glucose 85 115 H Calcium 8.7 Total Bilirubin 0.7 AST 28 ALT 42 H Alkaline Phosphatase 57 Total Protein 6.0 L Albumin 3.0 L 03/28/24 11:35 WBC RBC Hgb Hct MCV MCH MCHC RDW Plt Count MPV Immature Gran % (Auto) Neut % (Auto) Lymph % (Auto) [place] % (Auto) Eos % (Auto) Baso % (Auto) Lymph # (Auto) [place] # (Auto) Eos # (Auto) Baso # (Auto) Abs Immat Gran (auto) Absolute Neuts (auto) Absolute Nucleated RBC Nucleated RBC % Sodium Potassium Chloride Carbon Dioxide Anion Gap BUN Creatinine Estim Creat Clear Calc Estimated GFR Glucose POC Capillary Glucose 114 H Calcium Total Bilirubin AST ALT Alkaline Phosphatase Total Protein Albumin
[2024-03-28 16:03] LABS: Glucose Point of Care 104 mg/dl (65-105)
[2024-03-28] MEDS: FUROSEMIDE 20 MG TABLET PO (16:50)
[2024-03-28] MEDS: busPIRone HCL 10 MG TABLET 30 MG PO (16:50)
[2024-03-28] MEDS: PREGABALIN (*CRX) 75 MG CAPSULE PO (21:23)
[2024-03-28] MEDS: AMITRIPTYLINE HCL 10 MG TABLET PO (21:23)
[2024-03-28 21:37] LABS: Glucose Point of Care 130 mg/dl (65-105)
[2024-03-28] MEDS: ACETAMINOPHEN 325 MG TABLET 650 MG PO (22:48)
[2024-03-29] VITALS (21 sets, daily range): BP systolic 122–136; BP diastolic 75–89; PULSE 72–107; RESP 16–22; TEMP 36.6–37.1; O2SAT 93–100
[2024-03-29] MEDS: IPRATROPIUM 0.5 MG/ALBUTEROL SULFATE 2.5 MG AMPUL.NEB 3 ML INHALATION ×4 (03:40→20:57)
[2024-03-29] MEDS: HEPARIN SODIUM 5,000 UNITS/ML VIAL 5000 UNITS SUB-Q ×3 (06:01→20:36)
[2024-03-29] MEDS: cefTRIAXone 2 GM/NS 100 ML 2 GM/100 ML BAG IVPB (08:00)
[2024-03-29] MEDS: PREGABALIN (*CRX) 75 MG CAPSULE PO ×2 (09:00→20:36)
[2024-03-29] MEDS: THERAPEUTIC MULTIVITAMINS/MINERALS TAB (*BKC) 1 TABLET PO (09:00)
[2024-03-29] MEDS: busPIRone HCL 10 MG TABLET 30 MG PO ×2 (09:00→17:20)
[2024-03-29] MEDS: MONTELUKAST SODIUM 10 MG TABLET PO (09:00)
[2024-03-29] MEDS: FUROSEMIDE 20 MG TABLET PO ×2 (09:00→17:20)
[2024-03-29] MEDS: PROMETHAZINE HCL 25 MG TABLET PO (09:00)
[2024-03-29] MEDS: PANTOPRAZOLE 40 MG TABLET PO (09:00)
[2024-03-29] MEDS: HYDROCORTISONE SODIUM SUCCINATE 100 MG/2 ML VIAL 25 MG IV PUSH (10:07)
[2024-03-29 11:33] LABS: Glucose Point of Care 128 mg/dl (65-105)
--- NOTE | 2024-03-29 11:37 | P.PNIM_ITS ---
Progress Note: A&P Assessment and Plan (1) Acute respiratory failure: Code(s): J96.00 - Acute respiratory failure, unspecified whether with hypoxia or hypercapnia Status: Acute Assessment and Plan: Patient presents with SOB and was found to be in acute respiratory distress. She was febrile. CXR showing airspace disease left mid and lower lung zones. BNP 1330. ABG 7.42/27/79 on NIV. CTA chest showing pneumonia in multiple areas with the largest in the left lower lobe but no PE. Incidental finding of a RUL nodule. Acute respiratory failure likely secondary to community-acquired pneumonia with possible component of CHF ABG worsened and patient was intubated and sedated 03/23/24 She was fluid positive and did receive lasix IV once on 03/25 and 03/26 with excellent UOP. Patient did well and was able to be extubated 03/26 after a successful weaning trial CXR (03/26) showing small left pleural effusion with probable LLL/left basilar atelectasis. Weaned to room air now. Continue incentive spirometry, PT/OT. Contnue Bronchodilators. CPT. (2) Septic shock: Code(s): A41.9 - Sepsis, unspecified organism; R65.21 - Severe sepsis with septic shock Status: Acute Assessment and Plan: Post intubation, patient became hypotensive requiring Levophed. Levophed was weaned off the next day Patient is chronically on low-dose prednisone that she takes intermitently. Hydrocortisone started. Septic shock related to PNA. BCx 03/23 grew Strept pneumoniae aerobic bottle and MSSA in the other aerobic bottle. BCx 03/26 NGTD Sputum Cx 03/24 growing MSSA Echo as below MRSA nasal swab negative. Urine Legionella Ag pending. Urine pneumococcal antigen positive. Started on Zosyn and Vanco but changed to Rocephin 2gm daily on 03/26 and doxycycline 03/24. Vancomycin discontinued. She completed 5 days of Doxycycline. Strept pneumoniae sensitivities: Rocephin with SALO of 1. Continue IV Rocephin. Day 4 from negative culture (3) Community acquired pneumonia: Code(s): J18.9 - Pneumonia, unspecified organism Status: Acute Assessment and Plan: As above (4) Congestive heart failure: Code(s): I50.9 - Heart failure, unspecified Status: Acute Assessment and Plan: Patient has elevated BNP to 1330. Was on IV fluids as above but now stopped. Lasix IV once on 03/25 and 03/26 with excellent UOP Echo was technically difficult but showed LV size and fxn normal with EF 50-55%, Grade I diastolic dysfxn and mild TR. Fluid status better. Remains on room air. Add empagliflozin when more stable. Resumed home oral Lasix (5) Bacteremia: Code(s): R78.81 - Bacteremia Status: Acute Assessment and Plan: As above (6) Rheumatoid arthritis: Code(s): M06.9 - Rheumatoid arthritis, unspecified Status: Acute Assessment and Plan: On steroids. Wean down to prednisone. Reviewed home meds and started appropriate meds. Plan DVT prophylaxis -SC heparin Code Status - Full Code Subjective Date/time seen: 03/29/24 11:37 Interval history: 54yo female wit RA, fibromyalgia, migraines and depression here for shortness of breath. Slept poorly last night. Not on O2. Does have productive cough. Voiding well since Foely removed. She is upset due her dog dying yesterday. Exam Narrative: AF 98.7 134/89 75 20 96% ra Gen - NARD sitting up in the chair Chest - bibasilar crackles. nml RR CV - RRR S1/S2.Tele showing PVCs Abd - Soft, obese, +BS Ext - No pedal edema Psych - Nml mood but sad affect Skin - Warm and dry Objective Data Vital Signs Vital Signs: Vital Signs - 24 hr 03/28/24 11:40 03/28/24 14:21 03/28/24 14:35 Temperature 98.2 F Pulse Rate 78 73 82 Respiratory Rate 20 20 20 Blood Pressure 128/81 Pulse Oximetry 97 Oxygen Delivery Fraction of Inspired Oxygen 03/28/24 14:00 03/28/24 15:30 03/28/24 16:00 Temperature Pulse Rate 85 72 Respiratory Rate 16 Blood Pressure 143/84 H Pulse Oximetry 97 97 Oxygen Delivery Room Air Fraction of Inspired Oxygen 28 03/28/24 16:00 03/28/24 16:48 03/28/24 18:54 Temperature 98.1 F Pulse Rate 72 72 66 Respiratory Rate 20 Blood Pressure 137/92 H Pulse Oximetry 99 Oxygen Delivery Fraction of Inspired Oxygen 03/28/24 21:00 03/28/24 20:00 03/28/24 21:28 Temperature Pulse Rate 65 77 Respiratory Rate 20 Blood Pressure Pulse Oximetry Oxygen Delivery Room Air Fraction of Inspired Oxygen 03/28/24 21:40 03/28/24 22:00 03/29/24 00:00 Temperature Pulse Rate 79 94 Respiratory Rate 20 Blood Pressure Pulse Oximetry Oxygen Delivery Room Air Fraction of Inspired Oxygen 03/29/24 00:00 03/29/24 00:00 03/29/24 02:00 Temperature 97.9 F Pulse Rate 92 80 83 Respiratory Rate 18 Blood Pressure 133/87 Pulse Oximetry 100 Oxygen Delivery Fraction of Inspired Oxygen 03/29/24 03:58 03/29/24 04:00 03/29/24 05:48 Temperature 97.9 F Pulse Rate 77 76 Respiratory Rate 18 Blood Pressure 136/75 Pulse Oximetry 99 Oxygen Delivery Room Air Fraction of Inspired Oxygen 03/29/24 06:00 03/29/24 07:55 03/29/24 08:32 Temperature 98.7 F Pulse Rate 74 96 Respiratory Rate 16 Blood Pressure 134/89 Pulse Oximetry 98 96 Oxygen Delivery Room Air Fraction of Inspired Oxygen 03/29/24 08:32 03/29/24 08:00 03/29/24 08:00 Temperature Pulse Rate 75 75 Respiratory Rate 20 Blood Pressure Pulse Oximetry 93 Oxygen Delivery Room Air Fraction of Inspired Oxygen 28 03/29/24 08:44 Temperature Pulse Rate 75 Respiratory Rate Blood Pressure Pulse Oximetry Oxygen Delivery Fraction of Inspired Oxygen Intake/Output Intake/Output: Intake & Output 03/26/24 03/27/24 03/28/24 03/29/24 23:59 23:59 23:59 23:59 Intake Total 2401.5 640 880 500 Output Total 4465 850 2350 [facility] -2063.5 -210 -1470 500 Meds/Results Medications: Active Medications Generic Name Dose Route Start Last Admin Trade Name Freq PRN Reason Stop Dose Admin Acetaminophen 650 mg 03/25/24 23:38 03/27/24 23:37 Acetaminophen Elixir 325 Mg/10.15 Ml Udc FEED TUBE 650 mg Q4HR PRN Administration Mild Pain (1-3) or Fever Acetaminophen 650 mg 03/28/24 15:19 03/28/24 22:48 Acetaminophen 325 Mg Tablet PO 650 mg Q6H PRN Administration Mild Pain (1-3) or Fever Albuterol/Ipratropium 3 ml 03/24/24 09:25 03/28/24 14:20 Ipratropium 0.5 Mg/Albuterol Sulfate 2.5 Mg Ampul.Neb 3 Ml INHALATION 3 ml Q6HRT PRN Administration Wheezing Albuterol/Ipratropium 3 ml 03/28/24 20:00 03/29/24 08:27 Ipratropium 0.5 Mg/Albuterol Sulfate 2.5 Mg Ampul.Neb 3 Ml INHALATION 3 ml Q6HRT LYNNE Administration Alteplase, Recombinant 2 mg 03/25/24 17:41 03/25/24 17:54 Alteplase 2 Mg Vial (Cathflo) IV PUSH 2 mg ONCE PRN Administration Line Occlusion Amitriptyline HCl 10 mg 03/28/24 21:00 03/28/24 21:23 Amitriptyline Hcl 10 Mg Tablet PO 10 mg HS LYNNE Administration Bisacodyl 5 mg 03/23/24 21:45 Bisacodyl 5 Mg Tablet Ec PO DAILY PRN Constipation Buspirone HCl 30 mg 03/28/24 17:00 03/29/24 09:00 Buspirone Hcl 10 Mg Tablet PO 30 mg BID LYNNE Administration Dextrose 12.5 gm 03/24/24 08:15 Dextrose 50% 25 Gm/50 Ml Syringe IV PUSH PRN PRN Hypoglycemia Protocol Diazepam 5 mg 03/28/24 15:15 Diazepam (*Crx) 5 Mg Tablet PO BID PRN Anxiety Dicyclomine HCl 20 mg 03/28/24 15:15 Dicyclomine Hcl 10 Mg Capsule PO QID PRN Stomach Upset Furosemide 20 mg 03/28/24 17:00 03/29/24 09:00 Furosemide 20 Mg Tablet PO 20 mg BID LYNNE Administration Glucagon 1 mg 03/24/24 08:15 Glucagon For Inj 1 Mg Vial IM PRN PRN Hypoglycemia Protocol Glucose 15 gm 03/24/24 08:15 Glucose Oral Gel 15 Gm Of Glucse In 37.5 Gm Tube PO PRN PRN Hypoglycemia Protocol Heparin Sodium (Porcine) 5,000 units 03/24/24 14:00 03/29/24 06:01 Heparin Sodium 5,000 Units/Ml Vial SUB-Q 5,000 units Q8HR LYNNE Administration Hydrocortisone Sodium Succinate 25 mg 03/29/24 09:00 03/29/24 10:07 Hydrocortisone Sodium Succinate 100 Mg/2 Ml Vial IV PUSH 25 mg QAM LYNNE Administration Dextrose 1,000 mls @ 100 mls/hr 03/24/24 08:15 Dextrose 5% 1,000 Ml IVPB PRN PRN Hypoglycemia Protocol Ceftriaxone Sodium 2 gm in 100 mls @ 200 mls/hr 03/26/24 08:00 03/29/24 08:00 Rocephin 2 Gm/Ns 100 Ml IVPB 200 mls/hr Q24H LYNNE Administration Insulin Aspart 2 - 5 units 03/27/24 12:00 03/29/24 10:04 Insulin Aspart (*Bkc) 100 Units/Ml SUB-Q Not Given TIDWM LYNNE Protocol Insulin Aspart 1 - 2 units 03/27/24 21:00 03/28/24 21:54 Insulin Aspart (*Bkc) 100 Units/Ml SUB-Q Not Given HS [facility] Protocol Miscellaneous Information 1 each 03/28/24 00:01 Nonformulary Drug (Desvenlafaxine Succinate 100 Mg Tablet Extended Release 24 Hr) Can Abby XX 04/27/24 00:00 [facility] Miscellaneous Information 1 each 03/28/24 00:01 Nonformulary Drug (Buprenorphine-Naloxone 4-1 Mg Film) Extended Med Hx States 1 Film Tid F XX 04/27/24 00:00 [facility] Montelukast Sodium 10 mg 03/29/24 09:00 03/29/24 09:00 Montelukast Sodium 10 Mg Tablet PO 10 mg DAILY LYNNE Administration Multivitamins/Calcium 1 tablet 03/29/24 09:00 03/29/24 09:00 Therapeutic Multivitamins/Minerals Tab (*Bkc) PO 1 tablet DAILY LYNNE Administration Non-Formulary Medication 100 mg 03/29/24 09:00 Desvenlafaxine Succinate PO 04/28/24 08:59 DAILY LYNNE Non-Formulary Medication 1 film 03/28/24 17:00 Buprenorphine-Naloxone XX 04/27/24 16:59 BID LYNNE Pantoprazole Sodium 40 mg 03/29/24 09:00 03/29/24 09:00 Pantoprazole 40 Mg Tablet PO 40 mg QAM LYNNE Administration Pregabalin 75 mg 03/28/24 21:00 03/29/24 09:00 Pregabalin (*Crx) 75 Mg Capsule PO 75 mg Q12HR LYNNE Administration Promethazine HCl 25 mg 03/29/24 09:00 12/08/24 09:00 Promethazine Hcl 25 Mg Tablet PO 25 mg DAILY LYNNE Administration Sodium Chloride 20 ml 03/24/24 11:21 Central Line Flush IV PUSH PRN PRN after blood draws Radiology Results: ITS Impressions Abdomen X-Ray 03/23/24 17:28 IMPRESSION: 1. Nasogastric tube tip in the stomach. Chest CTA 03/23/24 19:45 IMPRESSION: 1. Pneumonia in multiple areas with the largest in the left lower lobe. 2. No pulmonary embolism. 3. Nodule in the right upper lobe. 6 months follow-up CT is advised. Chest X-Ray 03/26/24 07:14 Impression: Small left pleural effusion with probable left lower lobe/left basilar atelectasis. Correlate clinically for pneumonia. Minimal central congestive change. Support tubes, as above. Labs Labs: Laboratory Results - last 24 hr 03/28/24 03/28/24 03/28/24 11:35 15:37 21:23 POC Capillary Glucose 114 H 104 130 H 03/29/24 11:26 POC Capillary Glucose 128 H
[2024-03-29 16:03] LABS: Glucose Point of Care 145 mg/dl (65-105)
[2024-03-29] MEDS: NONFORMULARY DRUG (Desvenlafaxine Succinate 50 mg tablet extended release 24 hr) PO (17:20)
[2024-03-29] MEDS: ACETAMINOPHEN 325 MG TABLET 650 MG PO (17:39)
[2024-03-29] MEDS: AMITRIPTYLINE HCL 10 MG TABLET PO (20:36)
[2024-03-29 20:53] LABS: Glucose Point of Care 116 mg/dl (65-105)
[2024-03-30] VITALS (24 sets, daily range): BP systolic 99–144; BP diastolic 53–95; PULSE 74–104; RESP 18–22; TEMP 36.3–36.8; O2SAT 91–97
--- NOTE | 2024-03-30 01:53 | PCRCNOTE ---
Patient did not want to be woken for 0200 respiratory breathing tx on 03/30/24. RN aware treatment was not given.
[2024-03-30 04:50] LABS: Basophils Percent Auto 0.4 % (0.2-1.2); Eosinophils Absolute Auto 0.2 K/mm3 (0-0.3); Eosinophils Percent Auto 1.9 % (0-4.4); Hematocrit 34.4 % (37.0-47.0); Hemoglobin 11.4 g/dL (12.0-15.0); Immature Granulocyte Absolute 0.42 K/mm3 (0.00-0.031); Immature Granulocyte Percent A 4.2 % (0-0.5); Lymphocytes Absolute Auto 1.68 K/mm3 (0.9-3.2); Lymphocytes Percent Auto 16.6 % (18.3-44.2); Mean Corpuscular HGB Conc 33.1 g/dl (32-36); Mean Corpuscular Volume 93.5 fl (80-100); Mean Platelet Volume 9.1 fl (7.4-10.4); Monocytes Absolute Auto 0.7 K/mm3 (0.1-0.6); Monocytes Percent Auto 6.4 % (2.6-8.5); Neutrophils Absolute Auto 7.1 K/mm3 (1.3-6.7); Neutrophils Percent Auto 70.5 % (45.5-73.1); Platelet Count Result 577 k/mm3 (150-375); Red Blood Count 3.68 M/mm3 (4.2-5.4); Red Cell Distribution Width 12.5 % (11.5-14.5); White Blood Count 10.1 K/mm3 (4.5-10.0)
[2024-03-30 05:26] LABS: Alanine Aminotransferase 58 U/L (6-35); Albumin Level 3.2 g/dL (3.5-5.1); Alkaline Phosphatase 65 U/L (38-126); Anion Gap 5 mmol/L (4-12); Aspartate Amino Transferase 56 U/L (14-36); Bilirubin,Total 0.6 mg/dL (0.2-1.3); Blood Urea Nitrogen 8 mg/dL (7-17); Calcium 8.8 mg/dL (8.4-10.2); Carbon Dioxide 28 mmol/L (22-30); Chloride 104 mmol/L (98-107); Estimated CRCL calculation 130 ml/min; Estimated Glomerular Filt Rate > 60; Glucose 111 mg/dL (65-110); Potassium 3.3 mmol/L (3.4-5.0); Sodium 137 mmol/L (137-145)
[2024-03-30 07:56] LABS: Glucose Point of Care 115 mg/dl (65-105)
[2024-03-30] MEDS: IPRATROPIUM 0.5 MG/ALBUTEROL SULFATE 2.5 MG AMPUL.NEB 3 ML INHALATION ×3 (08:00→20:13)
[2024-03-30] MEDS: THERAPEUTIC MULTIVITAMINS/MINERALS TAB (*BKC) 1 TABLET PO (08:54)
[2024-03-30] MEDS: predniSONE 20 MG TABLET 40 MG PO (08:54)
[2024-03-30] MEDS: PANTOPRAZOLE 40 MG TABLET PO (08:54)
[2024-03-30] MEDS: FUROSEMIDE 20 MG TABLET PO ×2 (08:55→17:48)
[2024-03-30] MEDS: PREGABALIN (*CRX) 75 MG CAPSULE PO ×2 (08:55→20:25)
[2024-03-30] MEDS: busPIRone HCL 10 MG TABLET 30 MG PO ×2 (08:55→17:48)
[2024-03-30] MEDS: NONFORMULARY DRUG (Desvenlafaxine Succinate 50 mg tablet extended release 24 hr) PO (08:56)
[2024-03-30 11:47] LABS: Glucose Point of Care 153 mg/dl (65-105)
[2024-03-30] MEDS: cefTRIAXone 2 GM/NS 100 ML 2 GM/100 ML BAG IVPB (12:13)
[2024-03-30] MEDS: HEPARIN SODIUM 5,000 UNITS/ML VIAL 5000 UNITS SUB-Q ×2 (13:10→20:26)
[2024-03-30] MEDS: POTASSIUM CHLORIDE 20 MEQ ER TABLET 40 MEQ PO (13:10)
[2024-03-30 15:55] LABS: Glucose Point of Care 143 mg/dl (65-105)
--- NOTE | 2024-03-30 16:03 | PM.IMPN ---
Progress Note: A&P Assessment and Plan (1) Acute respiratory failure: Code(s): J96.00 - Acute respiratory failure, unspecified whether with hypoxia or hypercapnia Status: Acute Assessment and Plan: Patient presents with SOB and was found to be in acute respiratory distress. She was febrile. CXR showing airspace disease left mid and lower lung zones. BNP 1330. ABG 7.42/27/79 on NIV. CTA chest showing pneumonia in multiple areas with the largest in the left lower lobe but no PE. Incidental finding of a RUL nodule. Acute respiratory failure likely secondary to community-acquired pneumonia with possible component of CHF ABG worsened and patient was intubated and sedated 03/23/24 She was fluid positive and did receive lasix IV once on 03/25 and 03/26 with excellent UOP. Patient did well and was able to be extubated 03/26 after a successful weaning trial CXR (03/26) showing small left pleural effusion with probable LLL/left basilar atelectasis. Weaned to room air now. Continue incentive spirometry, PT/OT. Contnue Bronchodilators. CPT. Repeat CXR in the morning. (2) Septic shock: Code(s): A41.9 - Sepsis, unspecified organism; R65.21 - Severe sepsis with septic shock Status: Acute Assessment and Plan: Post intubation, patient became hypotensive requiring Levophed. Levophed was weaned off the next day Patient is chronically on low-dose prednisone that she takes intermitently. Hydrocortisone started. Septic shock related to PNA. BCx 03/23 grew Strept pneumoniae aerobic bottle and MSSA in the other aerobic bottle. BCx 03/26 NGTD Sputum Cx 03/24 growing MSSA Echo as below MRSA nasal swab negative. Urine Legionella Ag pending. Urine pneumococcal antigen positive. Started on Zosyn and Vanco but changed to Rocephin 2gm daily on 03/26 and doxycycline 03/24. Vancomycin discontinued. She completed 5 days of Doxycycline. Strept pneumoniae sensitivities: Rocephin with SALO of 1. Continue IV Rocephin. Day [address] Midline for IV abx at home (3) Community acquired pneumonia: Code(s): J18.9 - Pneumonia, unspecified organism Status: Acute Assessment and Plan: As above (4) Congestive heart failure: Code(s): I50.9 - Heart failure, unspecified Status: Acute Assessment and Plan: Patient has elevated BNP to 1330. Was on IV fluids as above but now stopped. Lasix IV once on 03/25 and 03/26 with excellent UOP Echo was technically difficult but showed LV size and fxn normal with EF 50-55%, Grade I diastolic dysfxn and mild TR. Fluid status better. Remains on room air. Add empagliflozin when more stable.Continue home oral Lasix (5) Bacteremia: Code(s): R78.81 - Bacteremia Status: Acute Assessment and Plan: As above (6) Rheumatoid arthritis: Code(s): M06.9 - Rheumatoid arthritis, unspecified Status: Acute Assessment and Plan: On steroids. Weaned down to prednisone. Reviewed home meds and started appropriate meds. Plan DVT prophylaxis -SC heparin Code Status - Full Code Subjective Date/time seen: 03/30/24 16:03 Interval history: 54yo female wit RA, fibromyalgia, migraines and depression here for shortness of breath. She is feeling much better. Walking in the room with walker. Cough better and still productive. Exam Narrative: AF 98.1 126/81 91 20 92% ra Gen - NARD sitting up in the chair Chest - decreased BS in the left base. CV - RRR S1/S2.Tele showing no significant dysrhythmias Abd - Soft, obese, +BS Ext - No pedal edema Psych - Nml mood and affect Skin - Warm and dry Objective Data Vital Signs Vital Signs: Vital Signs - 24 hr 03/29/24 16:19 03/29/24 18:00 03/29/24 18:43 Temperature 98.4 F 98.6 F Pulse Rate 88 90 84 Respiratory Rate 20 22 H Blood Pressure 126/82 122/78 Pulse Oximetry 96 96 Oxygen Delivery Fraction of Inspired Oxygen 03/29/24 20:00 03/29/24 22:00 03/29/24 20:00 Temperature Pulse Rate 86 99 Respiratory Rate Blood Pressure Pulse Oximetry Oxygen Delivery Room Air Fraction of Inspired Oxygen 03/29/24 23:41 03/29/24 23:51 03/30/24 00:00 Temperature 97.8 F Pulse Rate 86 78 Respiratory Rate 22 H Blood Pressure 123/79 Pulse Oximetry 96 Oxygen Delivery Room Air Fraction of Inspired Oxygen 03/30/24 02:00 03/30/24 03:56 03/30/24 04:00 Temperature 97.7 F Pulse Rate 74 85 Respiratory Rate 22 H Blood Pressure 108/60 Pulse Oximetry 91 Oxygen Delivery Room Air Fraction of Inspired Oxygen 03/30/24 04:00 03/30/24 06:00 03/30/24 08:00 Temperature Pulse Rate 82 81 Respiratory Rate Blood Pressure Pulse Oximetry 91 Oxygen Delivery Room Air Fraction of Inspired Oxygen 21 03/30/24 08:00 03/30/24 08:07 03/30/24 08:09 Temperature 98.1 F Pulse Rate 92 88 91 Respiratory Rate 20 20 20 Blood Pressure 124/81 Pulse Oximetry 94 Oxygen Delivery Fraction of Inspired Oxygen 03/30/24 08:00 03/30/24 08:00 03/30/24 09:00 Temperature Pulse Rate 93 Respiratory Rate Blood Pressure 118/67 Pulse Oximetry Oxygen Delivery Room Air Fraction of Inspired Oxygen 03/30/24 10:00 03/30/24 12:02 03/30/24 12:00 Temperature 98.1 F Pulse Rate 84 95 101 H Respiratory Rate 22 H Blood Pressure 126/81 Pulse Oximetry 93 Oxygen Delivery Fraction of Inspired Oxygen 03/30/24 12:00 03/30/24 14:06 03/30/24 14:06 Temperature Pulse Rate 92 Respiratory Rate 20 Blood Pressure Pulse Oximetry 92 Oxygen Delivery Room Air Room Air Fraction of Inspired Oxygen 21 03/30/24 14:12 03/30/24 14:00 Temperature Pulse Rate 91 104 H Respiratory Rate 20 Blood Pressure Pulse Oximetry Oxygen Delivery Fraction of Inspired Oxygen Intake/Output Intake/Output: Intake & Output 03/27/24 03/28/24 03/29/24 03/30/24 23:59 23:59 23:59 23:59 Intake Total 640 880 900 940 Output Total 850 2350 800 3495 [facility]203 -3232 100 -6981 Meds/Results Medications: Active Medications Generic Name Dose Route Start Last Admin Trade Name Freq PRN Reason Stop Dose Admin Acetaminophen 650 mg 03/25/24 23:38 03/27/24 23:37 Acetaminophen Elixir 325 Mg/10.15 Ml Udc FEED TUBE 650 mg Q4HR PRN Administration Mild Pain (1-3) or Fever Acetaminophen 650 mg 03/28/24 15:19 03/29/24 17:39 Acetaminophen 325 Mg Tablet PO 650 mg Q6H PRN Administration Mild Pain (1-3) or Fever Albuterol/Ipratropium 3 ml 03/24/24 09:25 03/28/24 14:20 Ipratropium 0.5 Mg/Albuterol Sulfate 2.5 Mg Ampul.Neb 3 Ml INHALATION 3 ml Q6HRT PRN Administration Wheezing Albuterol/Ipratropium 3 ml 03/28/24 20:00 03/30/24 14:06 Ipratropium 0.5 Mg/Albuterol Sulfate 2.5 Mg Ampul.Neb 3 Ml INHALATION 3 ml Q6HRT LYNNE Administration Alteplase, Recombinant 2 mg 03/25/24 17:41 03/25/24 17:54 Alteplase 2 Mg Vial (Cathflo) IV PUSH 2 mg ONCE PRN Administration Line Occlusion Amitriptyline HCl 10 mg 03/28/24 21:00 03/29/24 20:36 Amitriptyline Hcl 10 Mg Tablet PO 10 mg HS LYNNE Administration Bisacodyl 5 mg 03/23/24 21:45 Bisacodyl 5 Mg Tablet Ec PO DAILY PRN Constipation Buspirone HCl 30 mg 03/28/24 17:00 03/30/24 08:55 Buspirone Hcl 10 Mg Tablet PO 30 mg BID LYNNE Administration Dextrose 12.5 gm 03/24/24 08:15 Dextrose 50% 25 Gm/50 Ml Syringe IV PUSH PRN PRN Hypoglycemia Protocol Diazepam 5 mg 03/28/24 15:15 Diazepam (*Crx) 5 Mg Tablet PO BID PRN Anxiety Dicyclomine HCl 20 mg 03/28/24 15:15 Dicyclomine Hcl 10 Mg Capsule PO QID PRN Stomach Upset Furosemide 20 mg 03/28/24 17:00 03/30/24 08:55 Furosemide 20 Mg Tablet PO 20 mg BID LYNNE Administration Glucagon 1 mg 03/24/24 08:15 Glucagon For Inj 1 Mg Vial IM PRN PRN Hypoglycemia Protocol Glucose 15 gm 03/24/24 08:15 Glucose Oral Gel 15 Gm Of Glucse In 37.5 Gm Tube PO PRN PRN Hypoglycemia Protocol Heparin Sodium (Porcine) 5,000 units 03/24/24 14:00 03/30/24 13:10 Heparin Sodium 5,000 Units/Ml Vial SUB-Q 5,000 units Q8HR LYNNE Administration Dextrose 1,000 mls @ 100 mls/hr 03/24/24 08:15 Dextrose 5% 1,000 Ml IVPB PRN PRN Hypoglycemia Protocol Ceftriaxone Sodium 2 gm in 100 mls @ 200 mls/hr 03/26/24 08:00 03/30/24 12:13 Rocephin 2 Gm/Ns 100 Ml IVPB 04/08/24 23:59 200 mls/hr Q24H LYNNE Administration Insulin Aspart 2 - 5 units 03/27/24 12:00 03/30/24 15:58 Insulin Aspart (*Bkc) 100 Units/Ml SUB-Q Not Given TIDWM [facility] Protocol Insulin Aspart 1 - 2 units 03/27/24 21:00 03/29/24 21:30 Insulin Aspart (*Bkc) 100 Units/Ml SUB-Q Not Given HS [facility] Protocol Montelukast Sodium 10 mg 03/30/24 21:00 Montelukast Sodium 10 Mg Tablet PO HS [facility] Multivitamins/Calcium 1 tablet 03/29/24 09:00 03/30/24 08:54 Therapeutic Multivitamins/Minerals Tab (*Bkc) PO 1 tablet DAILY LYNNE Administration Nonformulary Drug ( 0 mg 03/29/24 18:00 03/30/24 08:56 Desvenlafaxine PO 04/28/24 17:59 100 mg Succinate 50 Mg DAILY LYNNE Administration Tablet Extended Release 24 Hr) Non-Formulary Medication 1 film 03/28/24 17:00 03/29/24 17:21 Buprenorphine-Naloxone XX 04/27/24 16:59 Not Given BID LYNNE Pantoprazole Sodium 40 mg 03/29/24 09:00 03/30/24 08:54 Pantoprazole 40 Mg Tablet PO 40 mg QAM LYNNE Administration Prednisone 40 mg 03/30/24 08:00 03/30/24 08:54 Prednisone 20 Mg Tablet PO 40 mg DAILY@0800 LYNNE Administration Pregabalin 75 mg 03/28/24 21:00 03/30/24 08:55 Pregabalin (*Crx) 75 Mg Capsule PO 75 mg Q12HR LYNNE Administration Promethazine HCl 25 mg 03/30/24 08:19 Promethazine Hcl 25 Mg Tablet PO Q6H PRN Nausea Sodium Chloride 20 ml 03/24/24 11:21 Central Line Flush IV PUSH PRN PRN after blood draws Radiology Results: ITS Impressions Abdomen X-Ray 03/23/24 17:28 IMPRESSION: 1. Nasogastric tube tip in the stomach. Chest CTA 03/23/24 19:45 IMPRESSION: 1. Pneumonia in multiple areas with the largest in the left lower lobe. 2. No pulmonary embolism. 3. Nodule in the right upper lobe. 6 months follow-up CT is advised. Chest X-Ray 03/26/24 07:14 Impression: Small left pleural effusion with probable left lower lobe/left basilar atelectasis. Correlate clinically for pneumonia. Minimal central congestive change. Support tubes, as above. Labs Labs: Laboratory Results - last 24 hr 03/29/24 03/29/24 03/30/24 15:59 20:46 04:39 WBC 10.1 H RBC 3.68 L Hgb 11.4 L Hct 34.4 L MCV 93.5 MCH 31.0 MCHC 33.1 RDW 12.5 Plt Count 577 H D MPV 9.1 Immature Gran % (Auto) 4.2 H Neut % (Auto) 70.5 Lymph % (Auto) 16.6 L [place] % (Auto) 6.4 Eos % (Auto) 1.9 Baso % (Auto) 0.4 Lymph # (Auto) 1.68 [place] # (Auto) 0.7 H Eos # (Auto) 0.2 Baso # (Auto) 0.0 Abs Immat Gran (auto) 0.42 H Absolute Neuts (auto) 7.1 H Absolute Nucleated RBC 0.000 Nucleated RBC % 0.0 Sodium 137 Potassium 3.3 L Chloride 104 Carbon Dioxide 28 Anion Gap 5 BUN 8 D Creatinine 0.50 L Estim Creat Clear Calc 130 Estimated GFR > 60 Glucose 111 H POC Capillary Glucose 145 H 116 H Calcium 8.8 Total Bilirubin 0.6 AST 56 H ALT 58 H Alkaline Phosphatase 65 Total Protein 7.0 Albumin 3.2 L 03/30/24 03/30/24 03/30/24 07:30 11:43 15:46 WBC RBC Hgb Hct MCV MCH MCHC RDW Plt Count MPV Immature Gran % (Auto) Neut % (Auto) Lymph % (Auto) [place] % (Auto) Eos % (Auto) Baso % (Auto) Lymph # (Auto) [place] # (Auto) Eos # (Auto) Baso # (Auto) Abs Immat Gran (auto) Absolute Neuts (auto) Absolute Nucleated RBC Nucleated RBC % Sodium Potassium Chloride Carbon Dioxide Anion Gap BUN Creatinine Estim Creat Clear Calc Estimated GFR Glucose POC Capillary Glucose 115 H 153 H 143 H Calcium Total Bilirubin AST ALT Alkaline Phosphatase Total Protein Albumin
[2024-03-30] MEDS: AMITRIPTYLINE HCL 10 MG TABLET PO (20:25)
[2024-03-30] MEDS: MONTELUKAST SODIUM 10 MG TABLET PO (20:25)
[2024-03-30 20:51] LABS: Glucose Point of Care 103 mg/dl (65-105)
[2024-03-31] VITALS (17 sets, daily range): BP systolic 123–145; BP diastolic 79–90; PULSE 70–96; RESP 18–20; TEMP 36.4–36.7; O2SAT 94–98
[2024-03-31] MEDS: IPRATROPIUM 0.5 MG/ALBUTEROL SULFATE 2.5 MG AMPUL.NEB 3 ML INHALATION ×3 (07:05→21:07)
[2024-03-31 07:19] LABS: Basophils Percent Auto 0.4 % (0.2-1.2); Eosinophils Absolute Auto 0.1 K/mm3 (0-0.3); Eosinophils Percent Auto 0.8 % (0-4.4); Hematocrit 31.5 % (37.0-47.0); Hemoglobin 10.1 g/dL (12.0-15.0); Immature Granulocyte Absolute 0.25 K/mm3 (0.00-0.031); Immature Granulocyte Percent A 3.4 % (0-0.5); Lymphocytes Absolute Auto 1.84 K/mm3 (0.9-3.2); Lymphocytes Percent Auto 24.7 % (18.3-44.2); Mean Corpuscular HGB Conc 32.1 g/dl (32-36); Mean Corpuscular Hemoglobin 31.2 pg (26-34); Mean Corpuscular Volume 97.2 fl (80-100); Mean Platelet Volume 9.7 fl (7.4-10.4); Monocytes Absolute Auto 0.7 K/mm3 (0.1-0.6); Monocytes Percent Auto 9.5 % (2.6-8.5); Neutrophils Absolute Auto 4.6 K/mm3 (1.3-6.7); Neutrophils Percent Auto 61.2 % (45.5-73.1); Platelet Count Result 536 k/mm3 (150-375); Red Blood Count 3.24 M/mm3 (4.2-5.4); Red Cell Distribution Width 12.6 % (11.5-14.5); White Blood Count 7.5 K/mm3 (4.5-10.0)
[2024-03-31 07:50] LABS: Glucose Point of Care 120 mg/dl (65-105)
[2024-03-31 07:55] LABS: Alanine Aminotransferase 58 U/L (6-35); Albumin Level 3.1 g/dL (3.5-5.1); Alkaline Phosphatase 57 U/L (38-126); Anion Gap 6 mmol/L (4-12); Aspartate Amino Transferase 53 U/L (14-36); Bilirubin,Total 0.5 mg/dL (0.2-1.3); Blood Urea Nitrogen 10 mg/dL (7-17); Calcium 8.7 mg/dL (8.4-10.2); Carbon Dioxide 27 mmol/L (22-30); Chloride 107 mmol/L (98-107); Estimated CRCL calculation 107 ml/min; Estimated Glomerular Filt Rate > 60; Glucose 102 mg/dL (65-110); Potassium 3.4 mmol/L (3.4-5.0); Sodium 140 mmol/L (137-145)
[2024-03-31] MEDS: busPIRone HCL 10 MG TABLET 30 MG PO ×2 (09:03→17:29)
[2024-03-31] MEDS: PREGABALIN (*CRX) 75 MG CAPSULE PO ×2 (09:03→20:36)
[2024-03-31] MEDS: NONFORMULARY DRUG (Desvenlafaxine Succinate 50 mg tablet extended release 24 hr) PO (09:04)
[2024-03-31] MEDS: THERAPEUTIC MULTIVITAMINS/MINERALS TAB (*BKC) 1 TABLET PO (09:04)
[2024-03-31] MEDS: PANTOPRAZOLE 40 MG TABLET PO (09:04)
[2024-03-31] MEDS: cefTRIAXone 2 GM/NS 100 ML 2 GM/100 ML BAG IVPB (09:04)
[2024-03-31] MEDS: predniSONE 20 MG TABLET 40 MG PO (09:04)
[2024-03-31] MEDS: FUROSEMIDE 20 MG TABLET PO ×2 (09:04→17:30)
[2024-03-31 11:29] LABS: Glucose Point of Care 148 mg/dl (65-105)
--- NOTE | 2024-03-31 12:23 | PCNFU ---
Nutrition Follow-Up Complete: Suboptimal Energy Intake as related to mechanical ventilation as evidenced by NPO Goal:Meet estimated nutritional needs Pt meeting goal, continue with same goal. Pt current nutrition is heart healthy. Nutrition recommendation: continue with current plan of care Last recorded weight is 93.5 kg. Bowel Motility: +BM 03/30 Labs Reviewed: Hgb:10.1, HCT:31.5, Alb:3.1, Cr:0.6, Glu:120 Meds Noted: lasix, prednisone Skin: WNL Additional Notes: Pt diet advanced to heart healthy, intake 50-75% of meals, noted pt has a history of gastric bypass and this intake is typical for her. Tolerating diet well. Will monitor weight, labs, skin, diet orders, meds. Follow up in 7 days.
[2024-03-31] MEDS: POTASSIUM CHLORIDE 20 MEQ PACKET (FOR LIQUID) PO (12:57)
[2024-03-31] MEDS: ACETAMINOPHEN 325 MG TABLET 650 MG PO (12:57)
[2024-03-31] MEDS: HEPARIN SODIUM 5,000 UNITS/ML VIAL 5000 UNITS SUB-Q ×2 (14:05→20:36)
--- NOTE | 2024-03-31 14:07 | PM.IMPN ---
Progress Note: A&P Assessment and Plan (1) Acute respiratory failure: Code(s): J96.00 - Acute respiratory failure, unspecified whether with hypoxia or hypercapnia Status: Acute Assessment and Plan: Patient presents with SOB and was found to be in acute respiratory distress. She was febrile. CXR showing airspace disease left mid and lower lung zones. BNP 1330. ABG 7.42/27/79 on NIV. CTA chest showing pneumonia in multiple areas with the largest in the left lower lobe but no PE. Incidental finding of a RUL nodule. Acute respiratory failure likely secondary to community-acquired pneumonia with possible component of CHF ABG worsened and patient was intubated on 03/23/24 She was fluid positive and did receive lasix IV with excellent UOP. Patient did well and was able to be extubated 03/26 after a successful weaning trial CXR today showing LLL atelectasis vs PNA with pleural effusion. Bilateral interstitial thickening pulm edema vs pneumonitis. Weaned to room air now. Fluid status +3L with 3.4L UOP yesterday. She is back on her home lasix. Continue to allow her to diuresis. Continue incentive spirometry and vest therapy to try to open up LLL. PT/OT. Continue Bronchodilators. CPT. (2) Septic shock: Code(s): A41.9 - Sepsis, unspecified organism; R65.21 - Severe sepsis with septic shock Status: Acute Assessment and Plan: Post intubation, patient became hypotensive requiring Levophed. Levophed was weaned off the next day Patient is chronically on low-dose prednisone that she takes intermitently. Hydrocortisone started. Septic shock related to PNA. BCx 03/23 grew Strept pneumoniae aerobic bottle and MSSA in the other aerobic bottle. BCx 03/26 NGTD Sputum Cx 03/24 growing MSSA Echo as below MRSA nasal swab negative. Urine Legionella Ag pending. Urine pneumococcal antigen positive. Started on Zosyn and Vanco but changed to Rocephin 2gm daily on 03/26 and doxycycline 03/24. Vancomycin discontinued. She completed 5 days of Doxycycline. Strept pneumoniae sensitivities: Rocephin with SALO of 1. Continue IV Rocephin. Day [address] Midline for IV abx at home (3) Community acquired pneumonia: Code(s): J18.9 - Pneumonia, unspecified organism Status: Acute Assessment and Plan: As above (4) Congestive heart failure: Code(s): I50.9 - Heart failure, unspecified Status: Acute Assessment and Plan: Patient has elevated BNP to 1330. Was on IV fluids as above but now stopped. Lasix IV with excellent UOP and resumed on home lasix. Echo was technically difficult but showed LV size and fxn normal with EF 50-55%, Grade I diastolic dysfxn and mild TR. Fluid status better. Remains on room air. Add Empagliflozin when more stable. Continue home oral Lasix (5) Bacteremia: Code(s): R78.81 - Bacteremia Status: Acute Assessment and Plan: As above (6) Rheumatoid arthritis: Code(s): M06.9 - Rheumatoid arthritis, unspecified Status: Acute Assessment and Plan: Was on IV steroids. Weaned down to prednisone now. Reviewed home meds and started appropriate meds. She does not use steroids at home regularly. Wean off oral Prednisone. Plan DVT prophylaxis -SC heparin Code Status - Full Code Subjective Date/time seen: 03/31/24 14:07 Interval history: 54yo female wit RA, fibromyalgia, migraines and depression here for shortness of breath. Slept well. Walking in [place] and doing steps. Feels better. Has hx of migraines but no headaches Exam Narrative: AF 97.7 123/79 83 20 94% ra Gen - NARD sitting up in the chair Chest - L>R bibasilar crackles. CV - RRR S1/S2.Tele showing no significant dysrhythmias Abd - Soft, obese, +BS Ext - No pedal edema Psych - Nml mood and affect Skin - Warm and dry Objective Data Vital Signs Vital Signs: Vital Signs - 24 hr 03/30/24 14:12 03/30/24 16:00 03/30/24 16:00 Temperature Pulse Rate 91 83 Respiratory Rate 20 Blood Pressure Pulse Oximetry Oxygen Delivery Room Air 03/30/24 16:09 03/30/24 18:00 03/30/24 20:00 Temperature 97.4 F L Pulse Rate 89 93 Respiratory Rate Blood Pressure 133/95 H Pulse Oximetry 96 Oxygen Delivery Room Air 03/30/24 20:00 03/30/24 20:15 03/30/24 20:15 Temperature Pulse Rate 92 89 Respiratory Rate 18 Blood Pressure Pulse Oximetry 95 Oxygen Delivery Room Air 03/30/24 20:25 03/30/24 20:54 03/30/24 22:00 Temperature 98.2 F Pulse Rate 97 79 87 Respiratory Rate 18 22 H Blood Pressure 144/87 H Pulse Oximetry 97 Oxygen Delivery 03/30/24 23:36 03/31/24 00:00 03/31/24 00:00 Temperature 97.8 F Pulse Rate 92 89 Respiratory Rate 22 H Blood Pressure 99/53 L Pulse Oximetry 96 Oxygen Delivery Room Air 03/31/24 02:00 03/31/24 07:05 03/31/24 07:05 Temperature Pulse Rate 83 71 71 Respiratory Rate 18 18 Blood Pressure Pulse Oximetry 98 Oxygen Delivery Room Air 03/31/24 07:15 03/31/24 08:00 03/31/24 08:00 Temperature Pulse Rate 74 91 89 Respiratory Rate 18 20 Blood Pressure Pulse Oximetry 94 Oxygen Delivery Room Air 03/31/24 08:08 03/31/24 10:00 03/31/24 12:00 Temperature 98.1 F 97.7 F Pulse Rate 91 96 79 Respiratory Rate 20 20 Blood Pressure 130/84 123/79 Pulse Oximetry 94 94 Oxygen Delivery 03/31/24 12:00 03/31/24 12:00 03/31/24 14:00 Temperature Pulse Rate 79 82 83 Respiratory Rate 20 Blood Pressure Pulse Oximetry 94 Oxygen Delivery Room Air Intake/Output Intake/Output: Intake & Output 03/28/24 03/29/24 03/30/24 03/31/24 23:59 23:59 23:59 23:59 Intake Total 232 819 5038 240 Output Total 2350 800 3425 [place] [id number] -1985 240 Meds/Results Medications: Active Medications Generic Name Dose Route Start Last Admin Trade Name Freq PRN Reason Stop Dose Admin Acetaminophen 650 mg 03/25/24 23:38 03/27/24 23:37 Acetaminophen Elixir 325 Mg/10.15 Ml Udc FEED TUBE 650 mg Q4HR PRN Administration Mild Pain (1-3) or Fever Acetaminophen 650 mg 03/28/24 15:19 03/31/24 12:57 Acetaminophen 325 Mg Tablet PO 650 mg Q6H PRN Administration Mild Pain (1-3) or Fever Albuterol/Ipratropium 3 ml 03/24/24 09:25 03/28/24 14:20 Ipratropium 0.5 Mg/Albuterol Sulfate 2.5 Mg Ampul.Neb 3 Ml INHALATION 3 ml Q6HRT PRN Administration Wheezing Albuterol/Ipratropium 3 ml 03/28/24 20:00 03/31/24 13:00 Ipratropium 0.5 Mg/Albuterol Sulfate 2.5 Mg Ampul.Neb 3 Ml INHALATION 3 ml Q6HRT LYNNE Administration Alteplase, Recombinant 2 mg 03/25/24 17:41 03/25/24 17:54 Alteplase 2 Mg Vial (Cathflo) IV PUSH 2 mg ONCE PRN Administration Line Occlusion Amitriptyline HCl 10 mg 03/28/24 21:00 03/30/24 20:25 Amitriptyline Hcl 10 Mg Tablet PO 10 mg HS LYNNE Administration Bisacodyl 5 mg 03/23/24 21:45 Bisacodyl 5 Mg Tablet Ec PO DAILY PRN Constipation Buspirone HCl 30 mg 03/28/24 17:00 03/31/24 09:03 Buspirone Hcl 10 Mg Tablet PO 30 mg BID LYNNE Administration Dextrose 12.5 gm 03/24/24 08:15 Dextrose 50% 25 Gm/50 Ml Syringe IV PUSH PRN PRN Hypoglycemia Protocol Diazepam 5 mg 03/28/24 15:15 Diazepam (*Crx) 5 Mg Tablet PO BID PRN Anxiety Dicyclomine HCl 20 mg 03/28/24 15:15 Dicyclomine Hcl 10 Mg Capsule PO QID PRN Stomach Upset Furosemide 20 mg 03/28/24 17:00 03/31/24 09:04 Furosemide 20 Mg Tablet PO 20 mg BID LYNNE Administration Glucagon 1 mg 03/24/24 08:15 Glucagon For Inj 1 Mg Vial IM PRN PRN Hypoglycemia Protocol Glucose 15 gm 03/24/24 08:15 Glucose Oral Gel 15 Gm Of Glucse In 37.5 Gm Tube PO PRN PRN Hypoglycemia Protocol Heparin Sodium (Porcine) 5,000 units 03/24/24 14:00 03/31/24 09:02 Heparin Sodium 5,000 Units/Ml Vial SUB-Q Not Given Q8HR LYNNE Dextrose 1,000 mls @ 100 mls/hr 03/24/24 08:15 Dextrose 5% 1,000 Ml IVPB PRN PRN Hypoglycemia Protocol Ceftriaxone Sodium 2 gm in 100 mls @ 200 mls/hr 12/05/24 08:00 03/31/24 09:04 Rocephin 2 Gm/Ns 100 Ml IVPB 04/08/24 23:59 200 mls/hr Q24H LYNNE Administration Insulin Aspart 2 - 5 units 03/27/24 12:00 03/31/24 11:51 Insulin Aspart (*Bkc) 100 Units/Ml SUB-Q Not Given TIDWM [facility] Protocol Insulin Aspart 1 - 2 units 03/27/24 21:00 03/30/24 21:43 Insulin Aspart (*Bkc) 100 Units/Ml SUB-Q Not Given HS [facility] Protocol Montelukast Sodium 10 mg 03/30/24 21:00 03/30/24 20:25 Montelukast Sodium 10 Mg Tablet PO 10 mg HS LYNNE Administration Multivitamins/Calcium 1 tablet 03/29/24 09:00 03/31/24 09:04 Therapeutic Multivitamins/Minerals Tab (*Bkc) PO 1 tablet DAILY LYNNE Administration Nonformulary Drug ( 0 mg 03/29/24 18:00 03/31/24 09:04 Desvenlafaxine PO 04/28/24 17:59 100 mg Succinate 50 Mg DAILY LYNNE Administration Tablet Extended Release 24 Hr) Non-Formulary Medication 1 film 03/28/24 17:00 03/29/24 17:21 Buprenorphine-Naloxone XX 04/27/24 16:59 Not Given BID LYNNE Pantoprazole Sodium 40 mg 03/29/24 09:00 03/31/24 09:04 Pantoprazole 40 Mg Tablet PO 40 mg QAM LYNNE Administration Prednisone 40 mg 03/30/24 08:00 03/31/24 09:04 Prednisone 20 Mg Tablet PO 40 mg DAILY@0800 LYNNE Administration Pregabalin 75 mg 03/28/24 21:00 03/31/24 09:03 Pregabalin (*Crx) 75 Mg Capsule PO 75 mg Q12HR LYNNE Administration Promethazine HCl 25 mg 03/30/24 08:19 Promethazine Hcl 25 Mg Tablet PO Q6H PRN Nausea Sodium Chloride 20 ml 03/24/24 11:21 Central Line Flush IV PUSH PRN PRN after blood draws Radiology Results: ITS Impressions Abdomen X-Ray 03/23/24 17:28 IMPRESSION: 1. Nasogastric tube tip in the stomach. Chest CTA 03/23/24 19:45 IMPRESSION: 1. Pneumonia in multiple areas with the largest in the left lower lobe. 2. No pulmonary embolism. 3. Nodule in the right upper lobe. 6 months follow-up CT is advised. Chest X-Ray 03/31/24 08:35 IMPRESSION: Left lower lobe atelectasis versus pneumonia with pleural effusion. Bilateral Interstitial thickening which may indicate underlying pulmonary edema versus pneumonitis. Labs Labs: Laboratory Results - last 24 hr 03/29/24 03/30/24 03/30/24 15:05 15:46 20:43 WBC Cancelled RBC Cancelled Hgb Cancelled Hct Cancelled MCV Cancelled MCH Cancelled MCHC Cancelled RDW Cancelled Plt Count Cancelled MPV Cancelled Immature Gran % (Auto) Cancelled Neut % (Auto) Cancelled Lymph % (Auto) Cancelled [place] % (Auto) Cancelled Eos % (Auto) Cancelled Baso % (Auto) Cancelled Lymph # (Auto) Cancelled [place] # (Auto) Cancelled Eos # (Auto) Cancelled Baso # (Auto) Cancelled Abs Immat Gran (auto) Cancelled Absolute Neuts (auto) Cancelled Absolute Nucleated RBC Cancelled Nucleated RBC % Cancelled % Immature Plt Fraction Cancelled Sodium Cancelled Potassium Cancelled Chloride Cancelled Carbon Dioxide Cancelled Anion Gap Cancelled BUN Cancelled Creatinine Cancelled Estim Creat Clear Calc Cancelled Estimated GFR Cancelled Glucose Cancelled POC Capillary Glucose 143 H 103 Calcium Cancelled Magnesium Cancelled Total Bilirubin Cancelled AST Cancelled ALT Cancelled Alkaline Phosphatase Cancelled Total Protein Cancelled Albumin Cancelled 03/31/24 03/31/24 03/31/24 04:43 07:46 11:24 WBC 7.5 RBC 3.24 L Hgb 10.1 L Hct 31.5 L MCV 97.2 MCH 31.2 MCHC 32.1 RDW 12.6 Plt Count 536 H MPV 9.7 Immature Gran % (Auto) 3.4 H Neut % (Auto) 61.2 Lymph % (Auto) 24.7 [place] % (Auto) 9.5 H Eos % (Auto) 0.8 Baso % (Auto) 0.4 Lymph # (Auto) 1.84 [place] # (Auto) 0.7 H Eos # (Auto) 0.1 Baso # (Auto) 0.0 Abs Immat Gran (auto) 0.25 H Absolute Neuts (auto) 4.6 Absolute Nucleated RBC 0.000 Nucleated RBC % 0.0 % Immature Plt Fraction Sodium 140 Potassium 3.4 Chloride 107 Carbon Dioxide 27 Anion Gap 6 BUN 10 Creatinine 0.60 L Estim Creat Clear Calc 107 Estimated GFR > 60 Glucose 102 POC Capillary Glucose 120 H 148 H Calcium 8.7 Magnesium Total Bilirubin 0.5 AST 53 H ALT 58 H Alkaline Phosphatase 57 Total Protein 6.0 L Albumin 3.1 L
[2024-03-31] MEDS: LIDOCAINE HCL 1% LOCAL INJ 2 ML AMPUL 5 ML INFILTRATE (14:10)
[2024-03-31 16:13] LABS: Glucose Point of Care 145 mg/dl (65-105)
[2024-03-31] MEDS: AMITRIPTYLINE HCL 10 MG TABLET PO (20:36)
[2024-03-31] MEDS: MONTELUKAST SODIUM 10 MG TABLET PO (20:36)
[2024-03-31] MEDS: SALINE LOCK FLUSH 10 ML IV PUSH (20:42)
[2024-03-31 21:21] LABS: Glucose Point of Care 135 mg/dl (65-105)
[2024-04-01] VITALS (11 sets, daily range): BP systolic 108–148; BP diastolic 80–85; PULSE 74–97; RESP 18–20; TEMP 36.5–36.6; O2SAT 92–95
[2024-04-01 06:31] LABS: Basophils Percent Auto 0.2 % (0.2-1.2); Eosinophils Percent Auto 0.3 % (0-4.4); Hematocrit 32.7 % (37.0-47.0); Hemoglobin 10.6 g/dL (12.0-15.0); Immature Granulocyte Absolute 0.15 K/mm3 (0.00-0.031); Immature Granulocyte Percent A 1.6 % (0-0.5); Lymphocytes Absolute Auto 1.95 K/mm3 (0.9-3.2); Lymphocytes Percent Auto 20.7 % (18.3-44.2); Mean Corpuscular HGB Conc 32.4 g/dl (32-36); Mean Corpuscular Hemoglobin 31.3 pg (26-34); Mean Corpuscular Volume 96.5 fl (80-100); Monocytes Absolute Auto 0.8 K/mm3 (0.1-0.6); Monocytes Percent Auto 8.2 % (2.6-8.5); Neutrophils Absolute Auto 6.5 K/mm3 (1.3-6.7); Platelet Count Result 523 k/mm3 (150-375); Red Blood Count 3.39 M/mm3 (4.2-5.4); Red Cell Distribution Width 12.6 % (11.5-14.5); White Blood Count 9.4 K/mm3 (4.5-10.0)
[2024-04-01 06:45] LABS: Alanine Aminotransferase 57 U/L (6-35); Albumin Level 3.4 g/dL (3.5-5.1); Alkaline Phosphatase 59 U/L (38-126); Anion Gap 3 mmol/L (4-12); Aspartate Amino Transferase 35 U/L (14-36); Bilirubin,Total 0.6 mg/dL (0.2-1.3); Blood Urea Nitrogen 11 mg/dL (7-17); Calcium 8.8 mg/dL (8.4-10.2); Carbon Dioxide 29 mmol/L (22-30); Chloride 105 mmol/L (98-107); Estimated CRCL calculation 103 ml/min; Estimated Glomerular Filt Rate > 60; Glucose 107 mg/dL (65-110); Potassium 3.4 mmol/L (3.4-5.0); Sodium 137 mmol/L (137-145)
[2024-04-01] MEDS: SALINE LOCK FLUSH 10 ML IV PUSH ×2 (06:50→13:03)
[2024-04-01] MEDS: HEPARIN SODIUM 5,000 UNITS/ML VIAL 5000 UNITS SUB-Q ×2 (06:50→13:03)
[2024-04-01 07:01] LABS: Glucose Point of Care 105 mg/dl (65-105)
[2024-04-01] MEDS: IPRATROPIUM 0.5 MG/ALBUTEROL SULFATE 2.5 MG AMPUL.NEB 3 ML INHALATION ×2 (08:25→13:58)
[2024-04-01] MEDS: predniSONE 10 MG TABLET 40 MG PO (09:12)
[2024-04-01] MEDS: THERAPEUTIC MULTIVITAMINS/MINERALS TAB (*BKC) 1 TABLET PO (09:12)
[2024-04-01] MEDS: PANTOPRAZOLE 40 MG TABLET PO (09:12)
[2024-04-01] MEDS: POTASSIUM CHLORIDE 20 MEQ PACKET (FOR LIQUID) 40 MEQ PO ×2 (09:12→09:21)
[2024-04-01] MEDS: busPIRone HCL 10 MG TABLET 30 MG PO (09:12)
[2024-04-01] MEDS: cefTRIAXone 2 GM/NS 100 ML 2 GM/100 ML BAG IVPB (09:13)
[2024-04-01] MEDS: PREGABALIN (*CRX) 75 MG CAPSULE PO (09:13)
[2024-04-01] MEDS: NONFORMULARY DRUG (Desvenlafaxine Succinate 50 mg tablet extended release 24 hr) PO (09:13)
[2024-04-01] MEDS: FUROSEMIDE 20 MG TABLET PO (09:13)
--- NOTE | 2024-04-01 10:00 | PM.IMPN ---
Progress Note: A&P Assessment and Plan (1) Rheumatoid arthritis: Code(s): M06.9 - Rheumatoid arthritis, unspecified Status: Acute (2) Bacteremia: Code(s): R78.81 - Bacteremia Status: Acute (3) Pneumonia: Code(s): J18.9 - Pneumonia, unspecified organism Status: Acute (4) Respiratory failure requiring intubation: Code(s): J96.90 - Respiratory failure, unspecified, unspecified whether with hypoxia or hypercapnia Status: Acute (5) Acute respiratory failure: Code(s): J96.00 - Acute respiratory failure, unspecified whether with hypoxia or hypercapnia Status: Acute Plan 54-year-old female with past medical history of obesity, fibromyalgia, rheumatoid arthritis, visiting from [place] presented with hypoxia, shortness of breath was intubated. CT chest showed Pneumonia in multiple areas with the largest in the left lower lobe. 2. No pulmonary embolism. 3. Nodule in the right upper lobe. Patient had septic shock, requiring pressors transiently. Was treated with IV antibiotics, extubated, weaned off O2 support, has been moved out of ICU. 1. Acute hypoxic respiratory failure+ bacteremia: Acute hypoxic respiratory failure secondary to community-acquired pneumonia Sputum culture grew MSSA Blood culture grew Streptococcus pneumoniae and MSSA Currently on ceftriaxone, last day of antibiotic is 04/08/2024 Patient is visiting from [place], has no local outpatient physician to follow-up Case management working on finding a physician to follow her for orders until she is on IV antibiotics Discontinue tele monitoring Continue with prednisone taper, patient can resume her outpatient chronic steroids when she is done with her prednisone taper Continue with bronchodilators Continue with home dose Lasix 2. Steroid-induced hyperglycemia: Blood glucose checked t.i.d. a.c. and HS Continue with sliding scale insulin Adjust dose as needed Hemoglobin A1c 5.4 3. Code status: Full 4. DVT prophylaxis: Heparin subQ 5. Disposition: Pending logistics as outpatient provider to follow up Time Spent With Patient Time: 37 mins Subjective Date/time seen: 04/01/24 10:00 Interval history: No acute events overnight Review of Systems Review of Systems: All systems reviewed & are unremarkable except as noted in HPI and below Exam Narrative: Gen - NARD sitting up in the chair Chest -decreased breath sounds bilaterally, no added sounds CV -S1-S2 present Abd - Soft, obese, +BS Ext - No pedal edema Psych - Nml mood and affect Skin - Warm and dry Objective Data Vital Signs Vital Signs: Vital Signs - 24 hr 03/31/24 12:00 03/31/24 12:00 03/31/24 12:00 Temperature 97.7 F Pulse Rate 79 79 82 Respiratory Rate 20 20 Blood Pressure 123/79 Pulse Oximetry 94 94 Oxygen Delivery Room Air Fraction of Inspired Oxygen 03/31/24 14:00 03/31/24 16:00 03/31/24 16:00 Temperature 97.5 F L Pulse Rate 83 70 82 Respiratory Rate 18 Blood Pressure 145/90 H Pulse Oximetry 96 Oxygen Delivery Fraction of Inspired Oxygen 03/31/24 16:00 03/31/24 18:00 03/31/24 20:57 Temperature 97.8 F Pulse Rate 82 75 80 Respiratory Rate 18 20 Blood Pressure 131/82 Pulse Oximetry 96 96 Oxygen Delivery Room Air Fraction of Inspired Oxygen 03/31/24 21:05 03/31/24 21:05 03/31/24 21:07 Temperature Pulse Rate 83 83 86 Respiratory Rate 18 18 Blood Pressure Pulse Oximetry 95 Oxygen Delivery Room Air Fraction of Inspired Oxygen 21 03/31/24 21:11 03/31/24 21:15 03/31/24 22:00 Temperature Pulse Rate 83 75 Respiratory Rate 18 Blood Pressure Pulse Oximetry 95 Oxygen Delivery Room Air Fraction of Inspired Oxygen 04/01/24 00:00 04/01/24 00:00 04/01/24 00:34 Temperature 97.8 F Pulse Rate 75 88 79 Respiratory Rate 18 20 Blood Pressure 125/80 Pulse Oximetry 95 95 Oxygen Delivery Room Air Fraction of Inspired Oxygen 21 04/01/24 02:00 04/01/24 04:00 04/01/24 04:00 Temperature Pulse Rate 83 83 74 Respiratory Rate 20 Blood Pressure Pulse Oximetry 95 Oxygen Delivery Room Air Fraction of Inspired Oxygen 21 04/01/24 04:00 04/01/24 06:00 04/01/24 08:00 Temperature 97.7 F Pulse Rate 87 83 97 Respiratory Rate 18 18 Blood Pressure 108/83 Pulse Oximetry 94 92 Oxygen Delivery Room Air Fraction of Inspired Oxygen 04/01/24 08:00 04/01/24 08:17 04/01/24 08:28 Temperature 97.7 F Pulse Rate 90 88 89 Respiratory Rate 20 18 Blood Pressure 148/85 H Pulse Oximetry 92 Oxygen Delivery Fraction of Inspired Oxygen 12/11/24 08:42 Temperature Pulse Rate 97 Respiratory Rate 18 Blood Pressure Pulse Oximetry Oxygen Delivery Fraction of Inspired Oxygen Intake/Output Intake/Output: Intake & Output 03/29/24 03/30/24 03/31/24 04/01/24 23:59 23:59 23:59 23:59 Intake Total 900 1440 1120 300 Output Total 800 3425 Balance 1120 300 Meds/Results Medications: Active Medications Generic Name Dose Route Start Last Admin Trade Name Freq PRN Reason Stop Dose Admin Acetaminophen 650 mg 03/28/24 15:19 03/31/24 12:57 Acetaminophen 325 Mg Tablet PO 650 mg Q6H PRN Administration Mild Pain (1-3) or Fever Albuterol/Ipratropium 3 ml 03/24/24 09:25 03/28/24 14:20 Ipratropium 0.5 Mg/Albuterol Sulfate 2.5 Mg Ampul.Neb 3 Ml INHALATION 3 ml Q6HRT PRN Administration Wheezing Albuterol/Ipratropium 3 ml 03/28/24 20:00 04/01/24 08:25 Ipratropium 0.5 Mg/Albuterol Sulfate 2.5 Mg Ampul.Neb 3 Ml INHALATION 3 ml Q6HRT LYNNE Administration Amitriptyline HCl 10 mg 03/28/24 21:00 03/31/24 20:36 Amitriptyline Hcl 10 Mg Tablet PO 10 mg HS LYNNE Administration Bisacodyl 5 mg 03/23/24 21:45 Bisacodyl 5 Mg Tablet Ec PO DAILY PRN Constipation Buspirone HCl 30 mg 03/28/24 17:00 04/01/24 09:12 Buspirone Hcl 10 Mg Tablet PO 30 mg BID LYNNE Administration Dextrose 12.5 gm 03/24/24 08:15 Dextrose 50% 25 Gm/50 Ml Syringe IV PUSH PRN PRN Hypoglycemia Protocol Diazepam 5 mg 03/28/24 15:15 Diazepam (*Crx) 5 Mg Tablet PO BID PRN Anxiety Dicyclomine HCl 20 mg 03/28/24 15:15 Dicyclomine Hcl 10 Mg Capsule PO QID PRN Stomach Upset Furosemide 20 mg 03/28/24 17:00 04/01/24 09:13 Furosemide 20 Mg Tablet PO 20 mg BID LYNNE Administration Glucagon 1 mg 03/24/24 08:15 Glucagon For Inj 1 Mg Vial IM PRN PRN Hypoglycemia Protocol Glucose 15 gm 03/24/24 08:15 Glucose Oral Gel 15 Gm Of Glucse In 37.5 Gm Tube PO PRN PRN Hypoglycemia Protocol Heparin Sodium (Porcine) 5,000 units 03/24/24 14:00 04/01/24 06:50 Heparin Sodium 5,000 Units/Ml Vial SUB-Q 5,000 units Q8HR LYNNE Administration Dextrose 1,000 mls @ 100 mls/hr 03/24/24 08:15 Dextrose 5% 1,000 Ml IVPB PRN PRN Hypoglycemia Protocol Ceftriaxone Sodium 2 gm in 100 mls @ 200 mls/hr 03/26/24 08:00 04/01/24 09:13 Rocephin 2 Gm/Ns 100 Ml IVPB 04/08/24 23:59 200 mls/hr Q24H LYNNE Administration Insulin Aspart 2 - 5 units 03/27/24 12:00 04/01/24 09:13 Insulin Aspart (*Bkc) 100 Units/Ml SUB-Q Not Given TIDWM [facility]YN[facility] Protocol Insulin Aspart 1 - 2 units 03/27/24 21:00 03/31/24 21:20 Insulin Aspart (*Bkc) 100 Units/Ml SUB-Q Not Given HS LYNNE Protocol Montelukast Sodium 10 mg 03/30/24 21:00 03/31/24 20:36 Montelukast Sodium 10 Mg Tablet PO 10 mg HS LYNNE Administration Multivitamins/Calcium 1 tablet 03/29/24 09:00 04/01/24 09:12 Therapeutic Multivitamins/Minerals Tab (*Bkc) PO 1 tablet DAILY LYNNE Administration Nonformulary Drug ( 0 mg 03/29/24 18:00 04/01/24 09:13 Desvenlafaxine PO 04/28/24 17:59 100 mg Succinate 50 Mg DAILY LYNNE Administration Tablet Extended Release 24 Hr) Pantoprazole Sodium 40 mg 03/29/24 09:00 04/01/24 09:12 Pantoprazole 40 Mg Tablet PO 40 mg QAM LYNNE Administration Prednisone 40 mg 04/01/24 08:00 04/01/24 09:12 Prednisone 10 Mg Tablet PO 04/13/24 07:59 40 mg DAILY@0800 LYNNE Administration Taper Pregabalin 75 mg 03/28/24 21:00 04/01/24 09:13 Pregabalin (*Crx) 75 Mg Capsule PO 75 mg Q12HR LYNNE Administration Promethazine HCl 25 mg 03/30/24 08:19 Promethazine Hcl 25 Mg Tablet PO Q6H PRN Nausea Sodium Chloride 10 ml 03/31/24 22:00 04/01/24 06:50 Saline Lock Flush IV PUSH 10 ml Q8HR LYNNE Administration Sodium Chloride 10 ml 03/31/24 14:47 Saline Lock Flush IV PUSH PRN PRN Flush Sodium Chloride 20 ml 03/31/24 14:47 Saline Lock Flush IV PUSH PRN PRN after blood draws Radiology Results: ITS Impressions Abdomen X-Ray 03/23/24 17:28 IMPRESSION: 1. Nasogastric tube tip in the stomach. Chest CTA 03/23/24 19:45 IMPRESSION: 1. Pneumonia in multiple areas with the largest in the left lower lobe. 2. No pulmonary embolism. 3. Nodule in the right upper lobe. 6 months follow-up CT is advised. Chest X-Ray 03/31/24 08:35 IMPRESSION: Left lower lobe atelectasis versus pneumonia with pleural effusion. Bilateral Interstitial thickening which may indicate underlying pulmonary edema versus pneumonitis. Labs Labs: Laboratory Results - last 24 hr 03/31/24 03/31/24 03/31/24 11:24 16:00 21:16 WBC RBC Hgb Hct MCV MCH MCHC RDW Plt Count MPV Immature Gran % (Auto) Neut % (Auto) Lymph % (Auto) [place] % (Auto) Eos % (Auto) Baso % (Auto) Lymph # (Auto) [place] # (Auto) Eos # (Auto) Baso # (Auto) Abs Immat Gran (auto) Absolute Neuts (auto) Absolute Nucleated RBC Nucleated RBC % Sodium Potassium Chloride Carbon Dioxide Anion Gap BUN Creatinine Estim Creat Clear Calc Estimated GFR Glucose POC Capillary Glucose 148 H 145 H 135 H Calcium Total Bilirubin AST ALT Alkaline Phosphatase Total Protein Albumin 04/01/24 04/01/24 06:21 06:33 WBC 9.4 RBC 3.39 L Hgb 10.6 L Hct 32.7 L MCV 96.5 MCH 31.3 MCHC 32.4 RDW 12.6 Plt Count 523 H MPV 9.0 Immature Gran % (Auto) 1.6 H Neut % (Auto) 69.0 Lymph % (Auto) 20.7 [place] % (Auto) 8.2 Eos % (Auto) 0.3 Baso % (Auto) 0.2 Lymph # (Auto) 1.95 [place] # (Auto) 0.8 H Eos # (Auto) 0.0 Baso # (Auto) 0.0 Abs Immat Gran (auto) 0.15 H Absolute Neuts (auto) 6.5 Absolute Nucleated RBC 0.000 Nucleated RBC % 0.0 Sodium 137 Potassium 3.4 Chloride 105 Carbon Dioxide 29 Anion Gap 3 L BUN 11 Creatinine 0.60 L Estim Creat Clear Calc 103 Estimated GFR > 60 Glucose 107 POC Capillary Glucose 105 Calcium 8.8 Total Bilirubin 0.6 AST 35 ALT 57 H Alkaline Phosphatase 59 Total Protein 6.0 L Albumin 3.4 L Quality VTE Prophylaxis VTE prophylaxis: pharmacologic ordered
--- NOTE | 2024-04-01 11:35 | PC.NURSE ---
This patient, Gini Gleason, was transferred to [[facility] ] on 04/01/24 at 1105. Personal belongings sent with patient. Report given to [ALICIA Jackson @ [phone] ]. Appropriate documentation sent with patient.
[2024-04-01 11:57] LABS: Glucose Point of Care 129 mg/dl (65-105)
--- NOTE | 2024-04-01 14:37 | P.DS_ITS ---
DS: Admitting Diagnosis Discharge Date 04/01/24 Admitting Diagnosis Cough SOB DS: Discharge Diagnosis Discharge Diagnosis (1) Rheumatoid arthritis: Code(s): M06.9 - Rheumatoid arthritis, unspecified Status: Acute (2) Bacteremia: Code(s): R78.81 - Bacteremia Status: Acute (3) Congestive heart failure: Code(s): I50.9 - Heart failure, unspecified Status: Acute (4) Acute respiratory failure: Code(s): J96.00 - Acute respiratory failure, unspecified whether with hypoxia or hypercapnia Status: Acute (5) Community acquired pneumonia: Code(s): J18.9 - Pneumonia, unspecified organism Status: Acute (6) Septic shock: Code(s): A41.9 - Sepsis, unspecified organism; R65.21 - Severe sepsis with septic shock Status: Acute DS: Summary Hospital Course Reason for hospitalization: Cough SOB Hospital Course: 54-year-old female with past medical history of obesity, fibromyalgia, rheumatoid arthritis, visiting from [place] presented with hypoxia, shortness of breath was intubated. CT chest showed Pneumonia in multiple areas with the largest in the left lower lobe. 2. No pulmonary embolism. 3. Nodule in the right upper lobe. Patient had septic shock, requiring pressors transiently. Was treated with IV antibiotics, extubated, weaned off O2 support, has been moved out of ICU. Sputum culture grew MSSA, blood culture grew Streptococcus pneumoniae and MSSA. antibiotic was eventually de-escalated to ceftriaxone with last day being 04/08/2024. She was weaned off any O2 support. Patient was continued on prednisone taper, her chronic low-dose prednisolone was held until she finishes her prednisone taper. Patient was discharged to SNF in stable condition until she finishes her IV antibiotic. Status at Discharge Functional status at discharge: independent ambulation Overall status at discharge: patient is back to baseline Time Spent with Patient Time attestation: Total time spent providing and/or coordinating discharge services:32 mins Exam Narrative: Gen - NARD sitting up in the chair Chest -decreased breath sounds bilaterally, no added sounds CV -S1-S2 present Abd - Soft, obese, +BS Ext - No pedal edema Psych - Nml mood and affect Skin - Warm and dry DS: Data Data Completed and Pending Labs on day of discharge: Labs from last 24 hours 04/01/24 04/01/24 04/01/24 11:49 06:33 06:21 WBC 9.4 RBC 3.39 L Hgb 10.6 L Hct 32.7 L MCV 96.5 MCH 31.3 MCHC 32.4 RDW 12.6 Plt Count 523 H MPV 9.0 Immature Gran % (Auto) 1.6 H Neut % (Auto) 69.0 Lymph % (Auto) 20.7 [place] % (Auto) 8.2 Eos % (Auto) 0.3 Baso % (Auto) 0.2 Lymph # (Auto) 1.95 [place] # (Auto) 0.8 H Eos # (Auto) 0.0 Baso # (Auto) 0.0 Abs Immat Gran (auto) 0.15 H Absolute Neuts (auto) 6.5 Absolute Nucleated RBC 0.000 Nucleated RBC % 0.0 Sodium 137 Potassium 3.4 Chloride 105 Carbon Dioxide 29 Anion Gap 3 L BUN 11 Creatinine 0.60 L Estim Creat Clear Calc 103 Estimated GFR > 60 Glucose 107 POC Capillary Glucose 129 H 105 Calcium 8.8 Total Bilirubin 0.6 AST 35 ALT 57 H Alkaline Phosphatase 59 Total Protein 6.0 L Albumin 3.4 L 03/31/24 03/31/24 21:16 16:00 WBC RBC Hgb Hct MCV MCH MCHC RDW Plt Count MPV Immature Gran % (Auto) Neut % (Auto) Lymph % (Auto) [place] % (Auto) Eos % (Auto) Baso % (Auto) Lymph # (Auto) [place] # (Auto) Eos # (Auto) Baso # (Auto) Abs Immat Gran (auto) Absolute Neuts (auto) Absolute Nucleated RBC Nucleated RBC % Sodium Potassium Chloride Carbon Dioxide Anion Gap BUN Creatinine Estim Creat Clear Calc Estimated GFR Glucose POC Capillary Glucose 135 H 145 H Calcium Total Bilirubin AST ALT Alkaline Phosphatase Total Protein Albumin Discharge Plan Discharge Attending physician on discharge: Chantal Jacob Consulting providers: Walter Law Discharging Clinician: Chantal Jacob Anticipated Discharge Date/Time: 04/01/24 14:28 Patient Disposition: SNF Activity: as tolerated Diet: heart healthy Discharge Instructions: CXR in [address] chest on 6 months Patient Instructions: Heparin (By injection), Pain Management (GEN), Removal of a Central Line, PICC, or Midline Catheter (DC) Patient Language: Italian Stand Alone Forms: General Discharge Information Discharge Medications: New ceftriaxone 2 gram Recon Soln 2 g IV Q24H 8 Days Qty: 8 0RF prednisone 10 mg tablets,dose pack See Taper PO DAILY 12 Days Qty: 42 0RF Taper: Prednisone Taper from 60 mg;12 days 60 mg DAILY for 2 Days and 0 Hour 50 mg DAILY for 2 Days and 0 Hour 40 mg DAILY for 2 Days and 0 Hour 30 mg DAILY for 2 Days and 0 Hour 20 mg DAILY for 2 Days and 0 Hour 10 mg DAILY for 2 Days and 0 Hour Continued cyclobenzaprine 10 mg tablet 10 mg PO BID ondansetron HCl 4 mg Tablet 4 mg PO Q6H PRN (Reason: Nausea And Vomiting) buspirone 30 mg tablet 30 mg PO BID promethazine 25 mg tablet 25 mg PO DAILY montelukast 10 mg tablet 10 mg PO DAILY ketamine 50 mg/mL solution 1 mg intranasal BID furosemide 20 mg Tablet 20 mg PO BID diazepam [Valium] 5 mg Tablet 5 mg PO BID PRN (Reason: Anxiety) pregabalin 75 mg capsule 75 mg PO BID desvenlafaxine succinate 100 mg tablet extended release 24 hr 100 mg PO DAILY buprenorphine-naloxone 4-1 mg film 1 film sublingual BID rizatriptan 10 mg tablet 10 mg DAILY PRN (Reason: Migraine Headache) zolmitriptan 5 mg tablet 5 mg DAILY PRN (Reason: Migraine Headache) meloxicam 7.5 mg tablet 7.5 mg PO BID dicyclomine 20 mg tablet 20 mg PO PRN amitriptyline 10 mg tablet 10 mg PO DAILY clindamycin phosphate 1 % lotion 1 applic TOPICAL PRN PRN (Reason: leg sores) Tart [place] Extract 1,000 mg Capsule 3,000 mg PO DAILY riboflavin (vitamin B2) 400 mg Tablet 400 mg PO BID jrktjcxz-xod-rnhx-vitamin K 18 mg iron-25 mcg Tablet 1 tablet PO DAILY Wegovy 1.7 mg/0.75 mL pen injector 1.7 mg SUBCUT WEEKLY krill oil 1,250 mg PO DAILY omeprazole 40 mg PO DAILY PRN (Reason: Acid Reflux) Held prednisone 5 mg tablet 5 mg PO DAILY PRN (Reason: rheumatoid arthritis) Hold Instructions: Resume on 04/13/24. resume after prednisone taper is finished Simponi 100 mg/mL syringe 100 mg SUBCUT MONTHLY Hold Instructions: Resume on 04/10/24. hold untill she is on antibiotic Rx Instructions: takes the 6th of every month Emgality Syringe 120 mg/mL syringe 300 mg SUBCUT MONTHLY Hold Instructions: Resume on 04/10/24. hold untill she is on antibiotic Rx Instructions: pt takes every 28 days Qulipta 60 mg tablet 60 mg PO DAILY Hold Instructions: Resume on 04/10/24. hold untill she finishes her antibiotic Discontinued diclofenac sodium 1 % gel 1 ea TOPICAL PRN PRN (Reason: bursitis) Date of admission: 03/23/24 20:16 Primary Care Provider: WaiDimple Admitting Provider: Eliseo Sierra Attending physician on admission: Eliseo Sierra Condition: Improved
[2024-04-03 02:09] LABS: Legionella pneumophila Ag Ur NOT DETECTED
== END 2024-04-01 15:57 | disposition swing bed (61) | DRG 871 ==
LOC: ANHED 16:47 → ANHICU 21:53 → ANHIMU 03-27 15:49 → ANH2MED 04-01 13:39 → ANHIMU 04-02 08:49
PROVIDERS: Internal Medicine; Admitting Provider Internal Medicine; Emergency Provider Emergency Medicine; Visit Provider Internal Medicine
DX: A41.9 Sepsis, unspecified organism (principal); I50.21 Acute systolic (congestive) heart failure; J18.9 Pneumonia, unspecified organism; R65.21 Severe sepsis with septic shock; J96.01 Acute respiratory failure with hypoxia; B95.3 Streptococcus pneumoniae as the cause of diseases classified elsewhere; B95.61 Methicillin susceptible Staphylococcus aureus infection as the cause of diseases classified elsewhere; M06.9 Rheumatoid arthritis, unspecified; E66.9 Obesity, unspecified; Z68.30 Body mass index [BMI] 30.0-30.9, adult; M79.7 Fibromyalgia; R91.1 Solitary pulmonary nodule
CPT/HCPCS: 31500; 36415; 36556; 36569; 36600; 71045; 71046; 71275; 80053; 80202; 81001; 82375; 82805; 82948; 83036; 83050; 83605; 83735; 83880; 84145; 84484; 85018; 85025; 87040; 87070; 87077; 87181; 87205; 87449; 87636; 87641; 87899; 93005; 94002; 94003; 94640; 94669; 96365; 96366; 96367; 96375; 97110; 97116; 97161; 97165; 97530; 97535; 99291; A9270; C1751; C8929; J0696; J1644; J1720; J1885; J1940; J2003; J2060; J2250; J2470; J2543; J2919; J2997; J3010; J3370; J3480; J7030; J7040; J7512; Q9957; Q9967

== ENCOUNTER 2024-04-01 16:34 | Inpatient (IN) | payer MEDICARE, OTHER, SELFPAY ==
--- NOTE | 2024-04-01 16:45 | ADMGEN ---
This patient, Gini Gleason, was admitted to 2nd Floor Room 208-1. Patient/family oriented to hospital policies and general routines including ID bracelet, bed and alarms, visiting hours, pain management, procedures, bathroom and other care routines, personal items, smoking policy, room service/diet, and visiting hours. Information on how to activate the Rapid Response Team has been discussed. Patient/Family are encouraged to report perceived risks to care and to ask questions if they do not understand what they are told or what they should do.
[2024-04-01 16:56] LABS: Glucose Point of Care 154 mg/dl (65-105)
[2024-04-01 17:17] VITALS: BMI 33.6
[2024-04-01] MEDS: PREGABALIN (*CRX) 25 MG CAPSULE 75 MG PO (21:19)
[2024-04-01] MEDS: AMITRIPTYLINE HCL 10 MG TABLET PO (22:10)
[2024-04-01] MEDS: MONTELUKAST SODIUM 10 MG TABLET PO (22:10)
[2024-04-02] VITALS: BP 108/78; PULSE 74; RESP 16; TEMP 36.6; O2SAT 96
[2024-04-02 08:00] VITALS: BP 110/83; PULSE 86; RESP 18; TEMP 36.3; O2SAT 93
[2024-04-02 08:11] LABS: Glucose Point of Care 121 mg/dl (65-105)
--- NOTE | 2024-04-02 08:49 | P.HP_ITS ---
H&P: HPI History of Present Illness Date/Time: 04/02/24 08:49 Chief Complaint: generalized deconditioning weakness Narrative: This is a 54-year-old female with a significant past medical history of rheumatoid arthritis, fibromyalgia, migraine, depression, gastric bypass, anxiety who presents to [facility] program for rehab after hospitalization at [place]. Patient lives in [place] and was visiting her son when she became ill. She presented to [facility] on 03/23/2024 with shortness of breath and dyspnea after having a viral respiratory infection the week before. She started having worsening shortness of breath at her son's house and was initially taken to urgent care who called EMS to take her directly to the emergency room. Workup in the hospital included a chest x-ray which shown opacification in the left mid and lower zone suggestive of pneumonia. On arrival to the ED patient was placed on a BiPAP however remain tachypneic in the 40s to 50s even after several breathing treatments. Decision was made in the ED to intubate her for respiratory failure. She was initially meeting sepsis criteria with her tachypnea, respiratory failure, initial temp of 103.9?, heart rate of 120, leukocytosis of 15.2, lactic acidosis. workup in the hospital included a Chest CTA showed pneumonia and multiple areas with the largest in the left lower lobe, negative for PE, nodule noted in the right upper lobe. Initial labs showed a white blood cell count of 15.2, pH of 7.255, bicarb on ABG was 17.3, sodium 134, creatinine 0.80 with an estimated GFR of greater than 60, lactic acid 1.6> 2.3> 1.3, total bili 1.6, AST 59, troponin negative x2, proBNP 13 30. A UA was obtained which showed cloudy urine appearance, 3+ urine protein, 2+ urine ketone, 1+ urine bili, trace leukocyte, 3-5 urine RBC. MRSA was negative. respiratory panel was negative for influenza a and B and COVID. Urine pneumococcal was detected. Urine Legionella is still pending. She was initially admitted to ICU and started on broad-spectrum antibiotics. Blood cultures were obtained and initially showing Streptococcus pneumoniae in blood culture along with Staphylococcus aureus in sputum and 1 set of blood cultures. She had a repeat blood culture done on 03/26/2024 which showed no growth to date on final read. She was transitioned over to just Rocephin 2 g daily which she will continue till the 18th of this month. She was extubated on 03/26/2024 after successful weaning trial and was placed on room air the morning of 03/27/2024. She was transferred out to the floor on 03/28/2024 and remain inpatient until 04/01/2024 when she was discharged. patient denies any fever, chills, nausea, vomiting, diarrhea, abdominal pain, chest pain, shortness a breath. She does have a productive cough. She is being admitted in this setting for continued antibiotics and rehab needs. Review of Systems Review of Systems: All systems reviewed & are unremarkable except as noted in HPI and below Constitutional: Constitutional: Reports as per HPI and Reports no additional constitutional complaints Eyes: Eyes: Reports as per HPI and Reports no additional eye complaints ENT: Reports system reviewed and no additional complaints, except as documented and Reports as per HPI Cardiovascular: Cardiovascular: Reports as per HPI and Reports no additional cardiovascular complaints Respiratory: Respiratory: Reports as per HPI and Reports no additional respiratory complaints Gastrointestinal: Gastrointestinal: Reports as per HPI and Reports no additional gastrointestinal complaints Genitourinary: Genitourinary: Reports no additional female genitourinary complaints and Reports as per HPI Musculoskeletal: Musculoskeletal: Reports no additional musculoskeletal complaints and Reports as per HPI Integumentary/Breasts: Skin/Breast: Reports system reviewed and no additional complaints, except as docu and Reports as per HPI Neurologic: Reports system reviewed and no additional complaints, except as documented and Reports as per HPI Psychiatric: Psychiatric: Reports no additional psychiatric complaints and Reports as per HPI [facility] Past Medical History Medical History (Updated 04/02/24 @ 12:02 by Gloria Riggs APRN) Type 2 diabetes mellitus Anxiety Congestive heart failure Depression Migraine Fibromyalgia Rheumatoid arthritis Obesity Surgical History Surgical History H/O gastric bypass Family History Family History Other Unknown family medical history Social History Social History (Updated 04/02/24 @ 11:47 by Gloria Riggs APRN) Social History: disabled currently on disability. Lives with In [place]. Was up here visiting son and grandchildren. Smoking status: Never smoker Alcohol intake: never Substance use: never Substance use type: does not use Do You Feel Safe in your Home?: Yes Lack of Transportation: No Lack of Food: Never True Current Housing: I Have Housing Concerned About Future Housing: No Difficulty Paying Gas/Electric Bills: No Difficulty Paying for Meds: No Currently Unemployed: No Education: Decline to Answer Difficulty w/ Childcare or Family Care: No Spiritual care concerns: No Meds Home Medications and Allergies Home Medications ?Medication ?Instructions ?Recorded ?Confirmed ?Type amitriptyline 10 mg tablet 10 mg PO DAILY 03/24/24 04/01/24 History atogepant 60 mg tablet (Qulipta) 60 mg PO DAILY 03/24/24 04/01/24 History buprenorphine 4 mg-naloxone 1 mg 1 film sublingual BID 03/24/24 04/01/24 History sublingual film buspirone 30 mg tablet 30 mg PO BID 03/24/24 04/01/24 History clindamycin phosphate 1 % lotion 1 applic topical PRN PRN leg sores 03/24/24 04/01/24 History cyclobenzaprine 10 mg tablet 10 mg PO BID 03/24/24 04/01/24 History desvenlafaxine succinate 100 mg 100 mg PO DAILY 03/24/24 04/01/24 History tablet,extended release 24 hr diazepam 5 mg tablet (Valium) 5 mg PO BID PRN Anxiety 03/24/24 04/01/24 History dicyclomine 20 mg tablet 20 mg PO PRN irritable bowel 03/24/24 04/01/24 History furosemide 20 mg tablet 20 mg PO BID foot swelling 03/24/24 04/01/24 History galcanezumab-gnlm 120 mg/mL 300 mg subcut MONTHLY 03/24/24 04/01/24 History subcutaneous syringe (Emgality) golimumab 100 mg/mL subcutaneous 100 mg subcut MONTHLY 03/24/24 04/01/24 History syringe (Simponi) ketamine 50 mg/mL injection 1 mg intranasal BID 03/24/24 04/01/24 History solution krill oil 1,250 mg PO DAILY 03/24/24 04/01/24 History meloxicam 7.5 mg tablet 7.5 mg PO BID 03/24/24 04/01/24 History montelukast 10 mg tablet 10 mg PO DAILY 03/24/24 04/01/24 History multivitamin l-dqpdgoxz-smdhpse 1 tablet PO DAILY 03/24/24 04/01/24 History fumarate 18 mg-vitamin K 25 mcg tablet omeprazole 40 mg PO DAILY PRN Acid Reflux 03/24/24 04/01/24 History ondansetron HCl 4 mg tablet 4 mg PO Q6H PRN Nausea And Vomiting 03/24/24 04/01/24 History prednisone 5 mg tablet 5 mg PO DAILY PRN rheumatoid 03/24/24 04/01/24 History arthritis pregabalin 75 mg capsule 75 mg PO BID 03/24/24 04/01/24 History promethazine 25 mg tablet 25 mg PO DAILY nausea 03/24/24 04/01/24 History riboflavin (vitamin B2) 400 mg 400 mg PO BID 03/24/24 04/01/24 History tablet rizatriptan 10 mg tablet 10 mg PO DAILY PRN Migraine 03/24/24 04/01/24 History Headache semaglutide (weight loss) 1.7 1.7 mg subcut WEEKLY 03/24/24 04/01/24 History mg/0.75 mL subcutaneous pen injector (Wegovy) sour [place] extract 1,000 mg 3,000 mg PO DAILY 03/24/24 04/01/24 History capsule (Tart [place] Extract) zolmitriptan 5 mg tablet 5 mg PO DAILY PRN Migraine Headache 03/24/24 04/01/24 History ceftriaxone 2 gram intravenous 2 g IV Q24H bacteremia 8 days #8 ea 04/01/24 04/01/24 Rx solution prednisone 10 mg tablets in a dose See Taper PO DAILY 12 days #42 tabs 04/01/24 04/01/24 Rx pack Allergies Allergy/AdvReac Type Severity Reaction Status Date / Time No Known Allergies Allergy Verified 03/23/24 16:00 Vital Signs Vital Signs - 24 hr 04/01/24 17:30 04/02/24 00:00 Temperature 97.8 F Pulse Rate 74 Respiratory Rate 16 Blood Pressure 108/78 Pulse Oximetry 96 Oxygen Delivery Room Air Room Air Exam Narrative: General: In no acute distress, well nourished Head: atraumatic, no encephalopathy Eyes: PERRLA, sclera clear ENT: moist mucous membranes, nasal passages clear Neck: supple, no JVD, no adenopathy, trachea midline Cardiac: Normal S1 and S2. RRR, No murmur, gallops or friction rubs, peripheral pulses intact. Respiratory: Lungs clear to auscultation, no adventitious lung sounds, currently on room air, productive cough Gastrointestinal: soft, non-distended, non-tender, normoactive bowel sounds. : voiding without difficulty. Extremities: moves all extremities well, no edema Skin: clean, dry, intact. No wounds or lesions. Neuro: Alert and oriented x4, cranial nerves intact, no neuro deficits. Psych: normal mood, normal affect, interactive Assessment and Plan Assessment and plan (1) Bacteremia: Code(s): R78.81 - Bacteremia Status: Acute Assessment and Plan: * continue Rocephin 2 g Q 24 hour until May 09, 2023 * blood culture showing Staphylococcus aureus in 1 set of blood cultures, Streptococcus pneumoniae and other set of blood cultures, sputum culture positive for Staphylococcus aureus. * Urine strep was positive * maintain PICC line dressing changes and flush protocol * probiotics ordered (2) Community acquired pneumonia: Code(s): J18.9 - Pneumonia, unspecified organism Status: Acute Assessment and Plan: * continue Rocephin 2 g Q 24 hours until May 09, 2023 * urine strep was positive * white blood cell count 9.4 on 04/01/2024 * continue to wean steroids * continue albuterol and Advair inhalers * continue incentive spirometry (3) Weakness: Code(s): R53.1 - Weakness Status: Acute Assessment and Plan: * PT and OT to evaluate (4) Rheumatoid arthritis: Code(s): M06.9 - Rheumatoid arthritis, unspecified Status: Acute Assessment and Plan: * continue Lyrica * currently on prednisone taper for acute infection * continue Mobic * continue Flexeril * continue Suboxone (5) Fibromyalgia: Code(s): M79.7 - Fibromyalgia Status: Acute Assessment and Plan: * continue pain control as above (6) Depression: Code(s): F32.A - Depression, unspecified Status: Acute Assessment and Plan: * continue amitriptyline and Desvenlafaxine succinate (7) Congestive heart failure: Code(s): I50.9 - Heart failure, unspecified Status: Acute Assessment and Plan: * echocardiogram from 03/24/2024 shows normal LV systolic function with an estimated EF of 50-55%, grade 1 diastolic dysfunction * continue Lasix 20 mg daily (8) Anxiety: Code(s): F41.9 - Anxiety disorder, unspecified Status: Acute Assessment and Plan: * continue Valium (9) Type 2 diabetes mellitus: Code(s): E11.9 - Type 2 diabetes mellitus without complications Status: Acute Assessment and Plan: * Blood sugars ranging 105-154, currently on prednisone taper * Hgb A1C 5.4 * Accu checks AC/HS * moderate dose SSI ordered * hold Ozempic * hypoglycemic protocol in place * Diabetic diet ordered Hospitalist [facility] Advance Care Plan I have confirmed that the patient's Advanced Care Plan is present, code status is documented, or surrogate decision maker is listed in patient medical record.: Yes Medication Reconciliation I have utilized all available resources to obtain, update and review the patients current medications (includes all prescriptions, OTC, herbals, cannabis, and nutritional supplements).: Yes
[2024-04-02] MEDS: cefTRIAXone 2 GM/NS 100 ML 2 GM/100 ML BAG IVPB (09:06)
[2024-04-02] MEDS: BUPRENORPHINE/NALOXONE (*CRX) 4 MG/1 MG SL FILM 1 EACH SUBLINGUAL ×2 (09:06→17:45)
[2024-04-02] MEDS: THERAPEUTIC MULTIVITAMINS/MINERALS TAB (*BKC) 1 TABLET PO (09:07)
[2024-04-02] MEDS: predniSONE 20 MG TABLET 60 MG PO (09:07)
[2024-04-02] MEDS: PREGABALIN (*CRX) 25 MG CAPSULE 75 MG PO ×2 (09:07→21:42)
[2024-04-02] MEDS: busPIRone HCL 10 MG TABLET 30 MG PO ×2 (09:08→17:45)
[2024-04-02] MEDS: CYCLOBENZAPRINE HCL 10 MG TABLET PO ×2 (09:08→17:46)
[2024-04-02] MEDS: MELOXICAM 7.5 MG TABLET PO ×2 (09:08→17:46)
[2024-04-02] MEDS: FUROSEMIDE 20 MG TABLET PO ×2 (09:09→17:46)
[2024-04-02] MEDS: PROMETHAZINE HCL 25 MG TABLET PO (09:09)
[2024-04-02] MEDS: DESVENLAFAXINE SUCCINATE 50 MG TAB.ER.24H 100 MG PO (09:39)
[2024-04-02] MEDS: SACCHAROMYCES BOULARDII 250 MG CAPSULE PO ×2 (12:53→17:48)
[2024-04-02] MEDS: SALINE LOCK FLUSH 20 ML IV PUSH ×2 (13:00→21:43)
[2024-04-02 16:00] VITALS: BP 126/87; PULSE 86; RESP 20; TEMP 36.1; O2SAT 95
[2024-04-02] MEDS: SALMET XINAFT/FLUTIC PROPIN 250 MCG/50 MCG INH CAP 1 PUFF INHALATION (21:41)
[2024-04-02 21:42] LABS: Glucose Point of Care 121 mg/dl (65-105)
[2024-04-02] MEDS: AMITRIPTYLINE HCL 10 MG TABLET PO (21:42)
[2024-04-02] MEDS: MONTELUKAST SODIUM 10 MG TABLET PO (21:42)
[2024-04-03] VITALS: BP 125/84; PULSE 70; RESP 16; TEMP 36.4; O2SAT 95
[2024-04-03 07:54] LABS: Glucose Point of Care 95 mg/dl (65-105)
[2024-04-03 08:00] VITALS: BP 136/84; PULSE 83; RESP 20; TEMP 36.4; O2SAT 94
[2024-04-03] MEDS: SALMET XINAFT/FLUTIC PROPIN 250 MCG/50 MCG INH CAP 1 PUFF INHALATION ×2 (08:52→21:21)
[2024-04-03] MEDS: PREGABALIN (*CRX) 25 MG CAPSULE 75 MG PO ×2 (08:54→21:22)
[2024-04-03] MEDS: SACCHAROMYCES BOULARDII 250 MG CAPSULE PO ×3 (08:54→17:13)
[2024-04-03] MEDS: THERAPEUTIC MULTIVITAMINS/MINERALS TAB (*BKC) 1 TABLET PO (08:54)
[2024-04-03] MEDS: predniSONE 20 MG TABLET 60 MG PO (08:54)
[2024-04-03] MEDS: DESVENLAFAXINE SUCCINATE 50 MG TAB.ER.24H 100 MG PO (08:54)
[2024-04-03] MEDS: MELOXICAM 7.5 MG TABLET PO ×2 (08:55→17:14)
[2024-04-03] MEDS: CYCLOBENZAPRINE HCL 10 MG TABLET PO ×2 (08:55→17:13)
[2024-04-03] MEDS: busPIRone HCL 10 MG TABLET 30 MG PO ×2 (08:55→17:14)
[2024-04-03] MEDS: BUPRENORPHINE/NALOXONE (*CRX) 4 MG/1 MG SL FILM 1 EACH SUBLINGUAL ×2 (08:55→17:15)
[2024-04-03] MEDS: FUROSEMIDE 20 MG TABLET PO ×2 (08:55→17:15)
[2024-04-03] MEDS: PROMETHAZINE HCL 25 MG TABLET PO (08:55)
[2024-04-03] MEDS: cefTRIAXone 2 GM/NS 100 ML 2 GM/100 ML BAG IVPB (09:10)
[2024-04-03] MEDS: SALINE LOCK FLUSH 20 ML IV PUSH ×3 (09:11→21:25)
[2024-04-03 11:44] LABS: Glucose Point of Care 146 mg/dl (65-105)
[2024-04-03 16:00] VITALS: BP 111/86; PULSE 83; RESP 16; TEMP 36.1; O2SAT 95
[2024-04-03 17:12] LABS: Glucose Point of Care 157 mg/dl (65-105)
[2024-04-03] MEDS: AMITRIPTYLINE HCL 10 MG TABLET PO (21:22)
[2024-04-03] MEDS: MONTELUKAST SODIUM 10 MG TABLET PO (21:22)
[2024-04-04] VITALS: BP 109/74; PULSE 66; RESP 16; TEMP 36.7; O2SAT 96
[2024-04-04] MEDS: SALINE LOCK FLUSH 20 ML IV PUSH ×3 (06:03→22:06)
[2024-04-04 08:00] VITALS: BP 114/80; PULSE 81; RESP 17; TEMP 37; O2SAT 91
[2024-04-04] MEDS: cefTRIAXone 2 GM/NS 100 ML 2 GM/100 ML BAG IVPB (10:13)
[2024-04-04] MEDS: SALMET XINAFT/FLUTIC PROPIN 250 MCG/50 MCG INH CAP 1 PUFF INHALATION ×2 (10:14→21:55)
[2024-04-04] MEDS: PREGABALIN (*CRX) 25 MG CAPSULE 75 MG PO ×2 (10:15→21:55)
[2024-04-04] MEDS: predniSONE 10 MG TABLET 50 MG PO (10:15)
[2024-04-04] MEDS: FUROSEMIDE 20 MG TABLET PO ×2 (10:15→16:52)
[2024-04-04] MEDS: DESVENLAFAXINE SUCCINATE 50 MG TAB.ER.24H 100 MG PO (10:15)
[2024-04-04] MEDS: SACCHAROMYCES BOULARDII 250 MG CAPSULE PO ×3 (10:15→16:52)
[2024-04-04] MEDS: THERAPEUTIC MULTIVITAMINS/MINERALS TAB (*BKC) 1 TABLET PO (10:15)
[2024-04-04] MEDS: PROMETHAZINE HCL 25 MG TABLET PO (10:15)
[2024-04-04] MEDS: MELOXICAM 7.5 MG TABLET PO ×2 (10:16→16:52)
[2024-04-04] MEDS: BUPRENORPHINE/NALOXONE (*CRX) 4 MG/1 MG SL FILM 1 EACH SUBLINGUAL (10:16)
[2024-04-04] MEDS: busPIRone HCL 10 MG TABLET 30 MG PO ×2 (10:16→16:52)
[2024-04-04] MEDS: CYCLOBENZAPRINE HCL 10 MG TABLET PO ×2 (10:16→16:52)
[2024-04-04 16:00] VITALS: BP 126/84; PULSE 70; RESP 16; TEMP 36.1; O2SAT 94
[2024-04-04] MEDS: MONTELUKAST SODIUM 10 MG TABLET PO (21:55)
[2024-04-04] MEDS: AMITRIPTYLINE HCL 10 MG TABLET PO (21:55)
[2024-04-05] VITALS: BP 117/57; PULSE 75; RESP 16; TEMP 36.6; O2SAT 96
[2024-04-05] MEDS: SALINE LOCK FLUSH 20 ML IV PUSH ×3 (06:23→21:04)
[2024-04-05 08:00] VITALS: BP 134/90; PULSE 71; PULSE 96; RESP 17; TEMP 36.1; O2SAT 96
[2024-04-05] MEDS: busPIRone HCL 10 MG TABLET 30 MG PO ×2 (08:21→17:24)
[2024-04-05] MEDS: SACCHAROMYCES BOULARDII 250 MG CAPSULE PO ×3 (08:21→17:24)
[2024-04-05] MEDS: predniSONE 10 MG TABLET 50 MG PO (08:21)
[2024-04-05] MEDS: SALMET XINAFT/FLUTIC PROPIN 250 MCG/50 MCG INH CAP 1 PUFF INHALATION ×2 (08:21→21:00)
[2024-04-05] MEDS: THERAPEUTIC MULTIVITAMINS/MINERALS TAB (*BKC) 1 TABLET PO (08:21)
[2024-04-05] MEDS: FUROSEMIDE 20 MG TABLET PO ×2 (08:21→17:24)
[2024-04-05] MEDS: MELOXICAM 7.5 MG TABLET PO ×2 (08:21→17:24)
[2024-04-05] MEDS: DESVENLAFAXINE SUCCINATE 50 MG TAB.ER.24H 100 MG PO (08:21)
[2024-04-05] MEDS: PREGABALIN (*CRX) 25 MG CAPSULE 75 MG PO ×2 (08:21→21:00)
[2024-04-05] MEDS: PROMETHAZINE HCL 25 MG TABLET PO (08:22)
[2024-04-05] MEDS: CYCLOBENZAPRINE HCL 10 MG TABLET PO ×2 (08:22→17:24)
[2024-04-05] MEDS: cefTRIAXone 2 GM/NS 100 ML 2 GM/100 ML BAG IVPB (10:18)
[2024-04-05 16:00] VITALS: BP 125/76; PULSE 90; RESP 18; TEMP 36.7; O2SAT 92
[2024-04-05] MEDS: MONTELUKAST SODIUM 10 MG TABLET PO (21:01)
[2024-04-05] MEDS: AMITRIPTYLINE HCL 10 MG TABLET PO (21:01)
[2024-04-06] VITALS: BP 121/91; PULSE 80; RESP 14; TEMP 36.2; O2SAT 94
[2024-04-06] MEDS: SALINE LOCK FLUSH 20 ML IV PUSH ×3 (06:33→21:05)
[2024-04-06 08:00] VITALS: BP 132/88; PULSE 78; RESP 20; TEMP 36.4; O2SAT 95
[2024-04-06] MEDS: SACCHAROMYCES BOULARDII 250 MG CAPSULE PO ×3 (09:20→18:03)
[2024-04-06] MEDS: cefTRIAXone 2 GM/NS 100 ML 2 GM/100 ML BAG IVPB (09:42)
[2024-04-06] MEDS: DESVENLAFAXINE SUCCINATE 50 MG TAB.ER.24H 100 MG PO (09:43)
[2024-04-06] MEDS: SALMET XINAFT/FLUTIC PROPIN 250 MCG/50 MCG INH CAP 1 PUFF INHALATION ×2 (09:43→21:05)
[2024-04-06] MEDS: PREGABALIN (*CRX) 25 MG CAPSULE 75 MG PO ×2 (09:44→21:05)
[2024-04-06] MEDS: predniSONE 20 MG TABLET 40 MG PO (09:45)
[2024-04-06] MEDS: THERAPEUTIC MULTIVITAMINS/MINERALS TAB (*BKC) 1 TABLET PO (09:46)
[2024-04-06] MEDS: CYCLOBENZAPRINE HCL 10 MG TABLET PO ×2 (09:46→18:03)
[2024-04-06] MEDS: FUROSEMIDE 20 MG TABLET PO ×2 (09:46→18:03)
[2024-04-06] MEDS: MELOXICAM 7.5 MG TABLET PO ×2 (09:46→18:03)
[2024-04-06] MEDS: PROMETHAZINE HCL 25 MG TABLET PO (09:46)
[2024-04-06] MEDS: busPIRone HCL 10 MG TABLET 30 MG PO ×2 (09:46→18:02)
[2024-04-06] MEDS: BUPRENORPHINE/NALOXONE (*CRX) 4 MG/1 MG SL FILM 1 EACH SUBLINGUAL (09:47)
[2024-04-06] MEDS: polyethylene glycoL 3350 17 GM POWD.PACK PO (12:48)
[2024-04-06] MEDS: BISACODYL 5 MG TABLET EC PO (13:49)
[2024-04-06 16:00] VITALS: BP 112/75; PULSE 90; RESP 20; TEMP 35.5; O2SAT 95
[2024-04-06 20:00] VITALS: PULSE 90; RESP 20; O2SAT 95
[2024-04-06] MEDS: AMITRIPTYLINE HCL 10 MG TABLET PO (21:05)
[2024-04-06] MEDS: MONTELUKAST SODIUM 10 MG TABLET PO (21:05)
[2024-04-07] VITALS: BP 115/73; PULSE 89; RESP 16; TEMP 36.2; O2SAT 95
[2024-04-07 08:00] VITALS: BP 138/74; PULSE 76; RESP 16; TEMP 36.6; O2SAT 97
--- NOTE | 2024-04-07 08:55 | PC.NURSE ---
Changed PICC Removal order to 04/08/2024 R/T last antibiotic ends on said day.
[2024-04-07] MEDS: SACCHAROMYCES BOULARDII 250 MG CAPSULE PO ×3 (09:11→16:43)
[2024-04-07] MEDS: PREGABALIN (*CRX) 25 MG CAPSULE 75 MG PO ×2 (09:11→20:05)
[2024-04-07] MEDS: predniSONE 20 MG TABLET 40 MG PO (09:11)
[2024-04-07] MEDS: THERAPEUTIC MULTIVITAMINS/MINERALS TAB (*BKC) 1 TABLET PO (09:12)
[2024-04-07] MEDS: MELOXICAM 7.5 MG TABLET PO ×2 (09:12→16:43)
[2024-04-07] MEDS: busPIRone HCL 10 MG TABLET 30 MG PO ×2 (09:13→16:43)
[2024-04-07] MEDS: DESVENLAFAXINE SUCCINATE 50 MG TAB.ER.24H 100 MG PO (09:14)
[2024-04-07] MEDS: PROMETHAZINE HCL 25 MG TABLET PO (09:14)
[2024-04-07] MEDS: BISACODYL 5 MG TABLET EC PO (09:17)
[2024-04-07] MEDS: SALMET XINAFT/FLUTIC PROPIN 250 MCG/50 MCG INH CAP 1 PUFF INHALATION ×2 (09:17→20:04)
[2024-04-07] MEDS: polyethylene glycoL 3350 17 GM POWD.PACK PO (09:17)
[2024-04-07] MEDS: CYCLOBENZAPRINE HCL 10 MG TABLET PO ×2 (09:17→16:44)
[2024-04-07] MEDS: cefTRIAXone 2 GM/NS 100 ML 2 GM/100 ML BAG IVPB (09:19)
[2024-04-07] MEDS: SALINE LOCK FLUSH 20 ML IV PUSH ×3 (09:20→20:06)
[2024-04-07 15:27] VITALS: BP 113/79; PULSE 86; RESP 16; TEMP 36.5; O2SAT 94
[2024-04-07 20:00] VITALS: PULSE 86; RESP 16; O2SAT 94
[2024-04-07] MEDS: diazePAM (*CRX) 5 MG TABLET PO (20:04)
[2024-04-07] MEDS: MONTELUKAST SODIUM 10 MG TABLET PO (20:04)
[2024-04-07] MEDS: AMITRIPTYLINE HCL 10 MG TABLET PO (20:04)
[2024-04-08] VITALS: BP 117/80; PULSE 76; RESP 17; TEMP 36.2; O2SAT 97
[2024-04-08] MEDS: SALINE LOCK FLUSH 20 ML IV PUSH (05:34)
[2024-04-08 08:00] VITALS: BP 138/56; PULSE 88; RESP 16; TEMP 36.1; O2SAT 98
--- NOTE | 2024-04-08 08:09 | P.DS_ITS ---
DS: Admitting Diagnosis Discharge Date 04/08/24 Admitting Diagnosis Bacteremia community acquired pneumonia weakness Rheumatoid arthritis Fibromyalgia Depression CHF anxiety type 2 DM DS: Discharge Diagnosis Discharge Diagnosis (1) Bacteremia: Code(s): R78.81 - Bacteremia Status: Acute (2) Community acquired pneumonia: Code(s): J18.9 - Pneumonia, unspecified organism Status: Acute (3) Weakness: Code(s): R53.1 - Weakness Status: Acute (4) Rheumatoid arthritis: Code(s): M06.9 - Rheumatoid arthritis, unspecified Status: Acute (5) Fibromyalgia: Code(s): M79.7 - Fibromyalgia Status: Acute (6) Depression: Code(s): F32.A - Depression, unspecified Status: Acute (7) Congestive heart failure: Code(s): I50.9 - Heart failure, unspecified Status: Acute (8) Anxiety: Code(s): F41.9 - Anxiety disorder, unspecified Status: Acute (9) Type 2 diabetes mellitus: Code(s): E11.9 - Type 2 diabetes mellitus without complications Status: Acute DS: Summary Hospital Course Reason for hospitalization: Bacteremia community acquired pneumonia weakness Rheumatoid arthritis Fibromyalgia Depression CHF anxiety type 2 DM Hospital Course: This is a 54-year-old female with a significant past medical history of rheumatoid arthritis, fibromyalgia, migraine, depression, gastric bypass, anxiety who presents to [facility] for rehab after hospitalization at [facility]. Patient lives in [place] and was visiting her son when she became ill. She presented to [facility] on 03/23/2024 with shortness of breath and dyspnea after having a viral respiratory infection the week before. She started having worsening shortness of breath at her son's house and was initially taken to urgent care who called EMS to take her direc tly to the emergency room. Workup in the hospital included a chest x-ray which shown opacification in the left mid and lower zone suggestive of pneumonia. On arrival to the ED patient was placed on a BiPAP however remain tachypneic in the 40s to 50s even after several breathing treatments. Decision was made in the ED to intubate her for respiratory failure. She was initially meeting sepsis cri teria with her tachypnea, respiratory failure, initial temp of 103.9?, heart rate of 120, leukocytosis of 15.2, lactic acidosis. workup in the hospital included a Chest CTA showed pneumonia and multiple areas with the largest in the left lower lobe, negative for PE, nodule noted in the right upper lobe. Initial labs showed a white blood cell count of 15.2, pH of 7.255, bicarb on ABG was 17.3, sodium 134, creatinine 0.80 with an estimated GFR of greater than 60, lactic acid 1.6> 2.3> 1.3, total bili 1.6, AST 59, troponin negative x2, proBNP 13 30. A UA was obtained which showed cloudy urine appearance, 3+ urine protein, 2+ urine ketone, 1+ urine bili, trace leukocyte, 3-5 urine RBC. MRSA was negative. respiratory panel was negative for influenza a and B and COVID. Urine pneumococcal was detected. Urine Legionella is still pending. She was initially admitted to ICU and started on broad-spectrum antibiotics. Blood cultures were obtained and initially showing Streptococcus pneumoniae in blood culture along with Staphylococcus aureus in sputum and 1 set of blood cultures. She had a repeat blood culture done on 03/26/2024 which showed no growth to date on final read. She was transitioned over to just Rocephin 2 g daily which she will continue till the 18th of this month. She was extubated on 03/26/2024 after successful weaning trial and was placed on room air the morning of 03/27/2024. She was transferred out to the floor on 03/28/2024 and remain inpatient until 04/01/2024 when she was discharged. patient denies any fever, chills, nausea, vomiting, diarrhea, abdominal pain, chest pain, shortness a breath. She does have a productive cough. She is being admitted in this setting for continued antibiotics and rehab needs. She finished her full course of Rocephin this morning. She states she is feeling much better and does not have any new complaints today. She is stable for discharge at this time. She will need to follow up with her primary care doctor in 1-2 weeks. Final diagnosis: Bacteremia, community acquired pneumonia, generalized deconditioning Status at Discharge Cognitive/behavioral status at discharge: Alert and oriented x3 Time Spent with Patient Time attestation: Total time spent providing and/or coordinating discharge services: Time spent: Greater than 30 minutes Exam Narrative: General: In no acute distress, well nourished Cardiac: Normal S1 and S2. RRR, No murmur, gallops or friction rubs, peripheral pulses intact. Respiratory: Lungs clear to auscultation, no adventitious lung sounds, currently on room air, productive cough Gastrointestinal: soft, non-distended, non-tender, normoactive bowel sounds. : voiding without difficulty. Neuro: Alert and oriented x4 DS: Data Data Completed and Pending Completed studies during hospitalization: None Pending studies at discharge: None Procedures/Treatments: None Discharge Plan Discharge Attending physician on discharge: Dandy Mayers Discharging Clinician: Gloria Riggs Patient Disposition: Home, Self-Care Activity: as tolerated Diet: as tolerated Discharge Instructions: * Follow up with primary care doctor in 1-2 weeks. * Finish prednisone taper Patient Instructions: Antibiotic Form, Prednisone (By mouth), Ceftriaxone (By injection), Fall Prevention for Older Adults (DC), Weakness (DC) Patient Language: Somali Stand Alone Forms: General Discharge Information Follow-up/Referrals: Dimple Carreno [Other] - 1 week Discharge Medications: New prednisone 10 mg tablet 10 mg PO DIRECTED Qty: 12 0RF Rx Instructions: see taper instructions Starting tomorrow take 30 mg (3 pills), Then decrease to 20mg (2 pills) for 3 days, Then decrease to 10mg (1 pill) for 3 days, Then discontinue Continued cyclobenzaprine 10 mg tablet 10 mg PO BID ondansetron HCl 4 mg Tablet 4 mg PO Q6H PRN (Reason: Nausea And Vomiting) buspirone 30 mg tablet 30 mg PO BID promethazine 25 mg tablet 25 mg PO DAILY montelukast 10 mg tablet 10 mg PO DAILY ketamine 50 mg/mL solution 1 mg intranasal BID furosemide 20 mg Tablet 20 mg PO BID diazepam [Valium] 5 mg Tablet 5 mg PO BID PRN (Reason: Anxiety) pregabalin 75 mg capsule 75 mg PO BID desvenlafaxine succinate 100 mg tablet extended release 24 hr 100 mg PO DAILY buprenorphine-naloxone 4-1 mg film 1 film sublingual BID rizatriptan 10 mg tablet 10 mg PO DAILY PRN (Reason: Migraine Headache) zolmitriptan 5 mg tablet 5 mg PO DAILY PRN (Reason: Migraine Headache) Patient Comments: Patient has her home medications here. meloxicam 7.5 mg tablet 7.5 mg PO BID dicyclomine 20 mg tablet 20 mg PO PRN amitriptyline 10 mg tablet 10 mg PO DAILY clindamycin phosphate 1 % lotion 1 applic TOPICAL PRN PRN (Reason: leg sores) Patient Comments: As needed for leg sores Simponi 100 mg/mL syringe 100 mg SUBCUT MONTHLY Rx Instructions: takes the 6th of every month Tart [place] Extract 1,000 mg Capsule 3,000 mg PO DAILY Patient Comments: Patient has her own medications here riboflavin (vitamin B2) 400 mg Tablet 400 mg PO BID pziaxlql-lnj-hljj-vitamin K 18 mg iron-25 mcg Tablet 1 tablet PO DAILY Emgality Syringe 120 mg/mL syringe 300 mg SUBCUT MONTHLY Rx Instructions: pt takes every 28 days Wegovy 1.7 mg/0.75 mL pen injector 1.7 mg SUBCUT WEEKLY Patient Comments: Patient's has home medications here. Qulipta 60 mg tablet 60 mg PO DAILY Patient Comments: Resume on 04/10/2024. Hold until completed antibiotic krill oil 1,250 mg PO DAILY Patient Comments: Patient has own medication here omeprazole 40 mg PO DAILY PRN (Reason: Acid Reflux) Patient Comments: Patient has home medications here ceftriaxone 2 gram Recon Soln 2 g IV Q24H 8 Days Qty: 8 0RF Held prednisone 5 mg tablet 5 mg PO DAILY PRN (Reason: rheumatoid arthritis) Hold Instructions: Resume on 04/22/24. prednisone 10 mg tablets,dose pack See Taper PO DAILY 12 Days Qty: 42 0RF Hold Instructions: Resume on 04/22/24. Taper: Prednisone Taper from 60 mg;12 days 60 mg DAILY for 2 Days and 0 Hour 50 mg DAILY for 2 Days and 0 Hour 40 mg DAILY for 2 Days and 0 Hour 30 mg DAILY for 2 Days and 0 Hour 20 mg DAILY for 2 Days and 0 Hour 10 mg DAILY for 2 Days and 0 Hour Patient Comments: 60mg on 04/02 & 04/03 50mg on 04/04 & 04/05 40mg on 04/06 &04/07 30mg on 04/08 & 04/09 20mg on 04/10 & 04/11 10mg on 04/12 & 04/13 Date of admission: 04/01/24 16:34 Primary Care Provider: Dimple Carreno Admitting Provider: Dandy Mayers Attending physician on admission: Gloria Riggs Condition: Improved
[2024-04-08] MEDS: cefTRIAXone 2 GM/NS 100 ML 2 GM/100 ML BAG IVPB (08:17)
[2024-04-08] MEDS: polyethylene glycoL 3350 17 GM POWD.PACK PO (08:20)
[2024-04-08] MEDS: SALMET XINAFT/FLUTIC PROPIN 250 MCG/50 MCG INH CAP 1 PUFF INHALATION (08:20)
[2024-04-08] MEDS: PREGABALIN (*CRX) 25 MG CAPSULE 75 MG PO (08:20)
[2024-04-08] MEDS: DESVENLAFAXINE SUCCINATE 50 MG TAB.ER.24H 100 MG PO (08:21)
[2024-04-08] MEDS: SACCHAROMYCES BOULARDII 250 MG CAPSULE PO (08:21)
[2024-04-08] MEDS: busPIRone HCL 10 MG TABLET 30 MG PO (08:21)
[2024-04-08] MEDS: PROMETHAZINE HCL 25 MG TABLET PO (08:23)
[2024-04-08] MEDS: CYCLOBENZAPRINE HCL 10 MG TABLET PO (08:23)
[2024-04-08] MEDS: THERAPEUTIC MULTIVITAMINS/MINERALS TAB (*BKC) 1 TABLET PO (08:23)
[2024-04-08] MEDS: predniSONE 10 MG TABLET 30 MG PO (08:24)
--- NOTE | 2024-04-08 10:30 | PC.NURSE ---
1010 here for dc. patient taken per wc to his car. voices an understanding. claims she is not going home til after first of the year. claims she will find a primary doctor here in this area for follow up. claims she knows her meds and does not want to take all and will when self of some of her pain meds and lasix due to not needing. claims she does not take and doesn't need.
--- NOTE | 2024-04-09 09:53 | PC.NURSE ---
Discharge call back completed, doing well, no questions or concerns regarding dc instructions, is planning to find a PMD local while she is visiting family, will not go back to [place] till after the holiday.
== END 2024-04-08 10:10 | disposition home or self-care (01) | DRG 194 ==
PROVIDERS: Admitting Provider Internal Medicine; Visit Provider Nurse Practitioner Acute Care
DX: J18.9 Pneumonia, unspecified organism (principal); R78.81 Bacteremia; I50.9 Heart failure, unspecified; E11.9 Type 2 diabetes mellitus without complications; M06.9 Rheumatoid arthritis, unspecified; M79.7 Fibromyalgia; F32.A Depression, unspecified; F41.9 Anxiety disorder, unspecified; Z98.84 Bariatric surgery status
CPT/HCPCS: 82948; 97110; 97161; 97165; 97530; A9270; J0696; J7512